=== PATIENT | female | born 1945 | race Hispanic/Latino ===

== ENCOUNTER 2016-10-20 10:23 | Inpatient (IN) | payer MEDICARE, OTHER ==
[2016-10-20 10:23] VITALS: PULSE 71
[2016-10-20 11:20] LABS: ADD MANUAL DIFF? NO
[2016-10-20 11:22] LABS: BASO # 0.01 K/mm3 (0.0-2.0); BASO % 0.2 % (0.0-3.0); EOS # 0.1 (0.0-0.7); EOS % 1.6 % (1.5-5.0); GRAN # 4.06 (1.4-6.5); GRAN % 79.9 % (50.0-68.0); HEMATOCRIT 33.6 % (36.0-48.0); LYMPH # 0.5 (1.2-3.4); LYMPH % 10.6 % (22.0-35.0); MEAN CELL VOLUME 95.2 fL (80.0-105.0); MEAN CORPUSCULAR HEMOGLOBIN 31.2 pg (25.0-35.0); MEAN CORPUSCULAR HGB CONC 32.7 g/dl (31.0-37.0); MEAN PLATELET VOLUME 10.2 fl (7.0-11.0); MONO # 0.4 (0.1-0.6); MONO % 7.7 % (1.0-6.0); PLATELET COUNT 146 10^3/uL (120.0-450.0); RED CELL DISTRIBUTION WIDTH 17.5 % (11.5-14.5); WHITE BLOOD COUNT 5.1 10^3/ul (4.5-11.0)
[2016-10-20 11:32] LABS: ALB/GLOB RATIO 0.9 (1.1-1.8); BILIRUBIN,TOTAL 1.6 mg/dL (0.2-1.3); CALCIUM 9.2 mg/dL (8.4-10.5); MAGNESIUM 2.3 mg/dL (1.7-2.2); PHOSPHOROUS 3.8 mg/dL (2.5-4.5); POTASSIUM 3.7 mmol/L (3.6-5.0)
--- NOTE | 2016-10-20 11:32 | ED PDOC ---
Arrival/HPI - General Chief Complaint: Lower Extremity Problem/Injury Time Seen by Provider: 10/20/16 10:23 Historian: Patient, Family - History of Present Illness Narrative History of Present Illness (Text): 10/20/16 11:51 A 70 year old female, whose past medical history includes CHF and Atrial fibrillation, presents to the emergency department complaining of weakness and body aches since this morning. Patient's pain is in lower back, abdominal, lower extremities and all throughout body. Patient denies any fevers, runny nose , sore throat, cough, chest pain, shortness of breath or any other complaints at this time. She does get shortness of breathe at times on exertion. Today they checked her oxygen level and it was in the 80's and she only uses the oxygen at night. Patient notes she has been eating normally and her last bowel movement was last night. Patient was accompanied to emergency department by son who translated. PMD: Dr. Luna Time/Duration: Other (this morning) Symptom Onset: Sudden Symptom Course: Unchanged Activities at Onset: Rest Modifying Factors (Text): none Context: Home Past Medical History - Provider Review Nursing Documentation Reviewed: Yes - Infectious Disease Hx of Infectious Diseases: None - Tetanus Immunization Tetanus Immunization: Unknown - Past Medical History Past Medical History: Non-Contributing - Cardiac Hx Cardiac Disorders: Yes (BL LE varicose vein) Hx Congestive Heart Failure: Yes Hx Hypertension: Yes - Pulmonary Hx Chronic Obstructive Pulmonary Disease (COPD): Yes - Neurological Hx Neurological Disorder: No - HEENT Hx HEENT Disorder: Yes Other/Comment: wears glasses - Renal Hx Renal Disorder: Yes Hx Renal Failure: No (dialysis in past) Other/Comment: no longer dialysis pt. - Endocrine/Metabolic Hx Endocrine Disorders: No Hx Diabetes Mellitus Type 2: (pt denies having diabetes) - Hematological/Oncological Hx Blood Disorders: No - Integumentary Hx Dermatological Disorder: Yes Other/Comment: ble dry leathery red and brown discolored skin . - Musculoskeletal/Rheumatological Hx Musculoskeletal Disorders: Yes Hx Back Pain: Yes Hx Gout: Yes Hx Unsteady Gait: Yes - Gastrointestinal Hx Gastrointestinal Disorders: Yes (umbilical hernia no sx) Hx Gastroesophageal Reflux: Yes - Genitourinary/Gynecological Hx Genitourinary Disorders: No - Psychiatric Hx Psychophysiologic Disorder: No Hx Substance Use: No - Past Surgical History Past Surgical History: Non-Contributing - Surgical History Hx Valve Replacement: Yes Other/Comment: picc line in and out. dialysis fistula placed and removed. - Anesthesia Hx Anesthesia: Yes Hx Anesthesia Reactions: No Hx Malignant Hyperthermia: No - Suicidal Assessment Feels Threatened In Home Enviroment: No Family/Social History - Physician Review Nursing Documentation Reviewed: Yes Family/Social History: No Known Family HX Smoking Status: Never Smoked Hx Alcohol Use: No Hx Substance Use: No Hx Substance Use Treatment: No Allergies/Home Meds Allergies/Adverse Reactions: Allergies No Known Allergies Allergy (Verified 10/20/16 10:31) Home Medications: Home Meds Medication Instructions Recorded Confirmed diltiaZEM ER [Cardizem SR] 120 mg PO DAILY 02/22/14 10/20/16 Carvedilol [Coreg] 3.125 mg PO BID 07/10/16 10/20/16 Famotidine [Pepcid] 20 mg PO DAILY 07/10/16 10/20/16 Ferrous Sulfate [Iron] 325 mg PO DAILY 07/10/16 10/20/16 Furosemide [Lasix] 40 mg PO BID 07/10/16 10/20/16 Methimazole 5 mg PO DAILY 07/10/16 10/20/16 Spironolactone [Aldactone] 25 mg PO DAILY 07/10/16 10/20/16 Acetaminophen [Tylenol Extra 500 mg PO PRN PRN 10/20/16 10/20/16 Strength] Apixaban [Eliquis] 5 mg PO BID 10/20/16 10/20/16 Review of Systems - Physician Review All systems were reviewed & negative as marked: Yes - Review of Systems Constitutional: Other (weakness; body ache) ENT: absent: Sore Throat Respiratory: absent: SOB, Cough Cardiovascular: absent: Chest Pain Gastrointestinal: Abdominal Pain Musculoskeletal: Back Pain Physical Exam Vital Signs Reviewed: Yes Vital Signs Temp Pulse Resp BP Pulse Ox 10/20/16 12:45 59 L 16 124/55 L 97 10/20/16 12:42 124/55 L 10/20/16 10:30 98.7 F 75 16 146/56 L 84 L Temperature: Afebrile Blood Pressure: Hypotensive Pulse: Regular Respiratory Rate: Normal Appearance: Positive for: Well-Appearing, Non-Toxic, Comfortable Pain Distress: None Mental Status: Positive for: Alert and Oriented X 3 - Systems Exam Head: Present: Atraumatic, Normocephalic Pupils: Present: PERRL Extroacular Muscles: Present: EOMI Conjunctiva: Present: Normal Mouth: Present: Moist Mucous Membranes Pharnyx: Present: Normal. No: ERYTHEMA, EXUDATE Neck: Present: Normal Range of Motion. No: JVD Respiratory/Chest: Present: Good Air Exchange, Rales (right lower). No: Respiratory Distress, Accessory Muscle Use, Tender to Palpation Cardiovascular: Present: Regular Rate and Rhythm, Normal S1, S2. No: Murmurs Abdomen: Present: Hernias (reducible ventral). No: Tenderness Back: Present: Normal Inspection Upper Extremity: Present: Tenderness (to back). No: Cyanosis, Edema Lower Extremity: Present: Edema Neurological: Present: GCS=15, CN II-XII Intact, Speech Normal Skin: Present: Warm, Dry, Normal Color. No: Rashes Psychiatric: Present: Alert, Oriented x 3, Normal Insight, Normal Concentration Medical Decision Making ED Course and Treatment: 10/20/16 11:30 Impression: A 70 year old female complaining of weakness and body aches. Differential Diagnosis included but are not limited to: Electrolyte imbalance vs. Infection vs. Rhabdomyolysis vs CHF Plan: -- EKG -- chest xray -- US abdomen -- labs -- Urinalysis -- Toradol -- Reassess and disposition Prior Visits: Notes and results from previous visits were reviewed. Patient last reported to emergency department on 07/10/16 for evaluation of intermittent shortness of breath and abdominal pain. Patient was admitted to telemetry for CHF, Atrial fibrillation. Patient was advised CPAP at night, continue pulmonary vasodilation, bronchodilator, continue medications and to follow up with cardiology and nephrology outpatient. Patient was discharged on Progress Notes: EKG: Ordered, reviewed, and independently interpreted the EKG. Rate : 67 BPM Rhythm : NSR Interpretation : PVC, T wave inversion, lateral leads Comparison : No previous EKG for comparison. chest xray: Creator : Michael Wright MD IMPRESSION: No acute findings US abdomen: 10/20/16 12:57 Patient's oxy sat is in the low 80's. She does get short of breathe sometimes on exertion. Lasix 40mg IV ordered. CXR with no acute findings. Labs shows newly re-elevated BUN/Cr. Troponin negative. WBC normal. Case was discussed with Dr. Luna who agrees to observation under her service. Her Pharmaceutical Assistant is Dr. Mantilla. 10/20/16 13:02 Bili and alk phos elevated. Abd soft. Ventral hernia soft and reducible. Some epigatric tenderness. Will get sono. Patient had a normal bowel movement yesterday. No n/v. No clinical concern for obstruction. Will consider gallbladder dz. 10/20/16 13:46 Abd sono prelim reviewed. No cholecysitis noted. - Lab Interpretations Lab Results: 10/20/16 11:10 10/20/16 11:10 Lab Results 10/20/16 13:00: NT-Pro-B Natriuret Pep 91583 H 10/20/16 11:10: Sodium 142, Potassium 3.7, Chloride 104, Carbon Dioxide 28, Anion Gap 14, BUN 89 H, Creatinine 1.5 H, Est GFR ( Amer) 41, Est GFR ( Non-Af Amer) 34, Random Glucose 149 H, Calcium 9.2, Phosphorus 3.8, Magnesium 2.3 H, Total Bilirubin 1.6 H, AST 27, ALT 29, Alkaline Phosphatase 155 H, Lactate Dehydrogenase 408, Total Creatine Kinase 22 L, Troponin I 0.07, Total Protein 7.0, Albumin 3.3, Globulin 3.8, Albumin/Globulin Ratio 0.9 L 10/20/16 11:10: WBC 5.1, RBC 3.53, Hgb 11.0 L, Hct 33.6 L, MCV 95.2, MCH 31.2, MCHC 32.7, RDW 17.5 H, Plt Count 146, MPV 10.2, Gran % 79.9 H, Lymph % (Auto) 10.6 L, Denali % (Auto) 7.7 H, Eos % (Auto) 1.6, Baso % (Auto) 0.2, Gran # 4.06, Lymph # 0.5 L, Denali # 0.4, Eos # 0.1, Baso # 0.01 I have reviewed the lab results: Yes Interpretation: Abnormal lab values - RAD Interpretation Radiology Orders: 10/20/16 10:59 CHEST PORTABLE [RAD] Stat 10/20/16 12:29 ABDOMEN COMPLETE [US] Stat Cone Tender: ED Physician - EKG Interpretation Interpreted by ED Physician: Yes Type: 12 lead EKG - Medication Orders Current Medication Orders: Discontinued Medications Furosemide (Lasix) 40 mg IVP STAT STA Stop: 10/20/16 12:30 Last Admin: 10/20/16 12:42 Dose: 40 mg Ketorolac Tromethamine (Toradol) 15 mg IVP STAT STA Stop: 10/20/16 11:01 Last Admin: 10/20/16 11:16 Dose: 15 mg - Scribe Statement The provider has reviewed the documentation as recorded by the Antonino David All medical record entries made by the Antonino were at my direction and personally dictated by me. I have reviewed the chart and agree that the record accurately reflects my personal performance of the history, physical exam, medical decision making, and the department course for this patient. I have also personally directed, reviewed, and agree with the discharge instructions and disposition. Disposition/Present on Arrival - Present on Arrival Any Indicators Present on Arrival: No History of DVT/PE: No History of Uncontrolled Diabetes: No Urinary Catheter: No History of Decub. Ulcer: No History Surgical Site Infection Following: None - Disposition Have Diagnosis and Disposition been Completed?: Yes Diagnosis: Congestive heart failure (CHF), Weakness, Body aches Disposition: HOSPITALIZED Disposition Time: 13:01 Patient Plan: Observation Patient Problems: Current Active Problems Problem Status Onset Congestive heart failure (CHF) Acute Weakness Acute Body aches Acute Condition: FAIR
[2016-10-20 11:43] LABS: TROPONIN I 0.07 ng/mL
--- NOTE | 2016-10-20 12:09 | RAD ---
HISTORY: weakness COMPARISON: 07/10/2016 FINDINGS: LUNGS: No active pulmonary disease. PLEURA: Small right pleural effusion CARDIOVASCULAR: Severe cardiomegaly OSSEOUS STRUCTURES: No significant abnormalities. VISUALIZED UPPER ABDOMEN: Normal. OTHER FINDINGS: None. IMPRESSION: No acute findings
--- NOTE | 2016-10-20 13:11 | CARD ---
APPROVED REPORT EKG Measurement Heart [id number] <Conclusion> Sinus rhythm with one premature ventricular complex ST & T wave abnormality, consider lateral ischemia
--- NOTE | 2016-10-20 15:26 | US ---
HISTORY: abd pain r/o cholecystitis COMPARISON: Comparison is made to the previous study dated 07/11/2016 TECHNIQUE: Sonographic evaluation of the abdomen. FINDINGS: LIVER: Measures 21.2 cm. Heterogeneous increased echogenicity of the liver parenchyma. No mass. No intrahepatic bile duct dilatation. GALLBLADDER: Mild gallbladder wall thickening measures up to 4.6 millimeter. No evidence of cholelithiasis. COMMON BILE DUCT: Measures 7.6 mm. No stones. No dilatation. PANCREAS: Unremarkable as visualized. No mass. The pancreatic tail was not visualized No ductal dilatation. RIGHT KIDNEY: Measures 12.9 x 5.5 x 4.9cm. Normal echogenicity. No calculus, mass, or hydronephrosis. LEFT KIDNEY: Measures 11.6 x 4.1 x 3.9cm. Normal echogenicity. No calculus, mass, or hydronephrosis. SPLEEN: Normal in size and contour. No mass. AORTA: No aneurysmal dilatation. IVC: Unremarkable. OTHER FINDINGS: None. IMPRESSION: Hepatomegaly with findings again suggestive of fatty infiltration. Re- demonstration of nonspecific diffuse gallbladder wall thickening without evidence of cholelithiasis or cholecystitis.
[2016-10-20] MEDS: diltiaZEM 120 mg/24 Hours CD Cap PO SCH (15:58)
[2016-10-20 17:53] VITALS: BMI 30.6
--- NOTE | 2016-10-20 21:49 | HP ---
CHIEF COMPLAINT: Feeling fatigue and tired, pain in the legs, shortness of breath. HISTORY OF PRESENT ILLNESS: The patient is a 70-year-old lady with past medical history of congestive heart failure, atrial fibrillation, came to the Emergency Room complaining about weakness and body aches since this morning, shortness of breath and pain in the legs. The patient's pain is in the lower back, abdominal pain, lower extremities and all through the body. The patient denies any fever or runny nose, sore throat, coughing, chest pain. She does get shortness of breath at times, especially on exertion. She checked her oxygen level at home. It was in the 80s, and she uses the oxygen just at night. No nausea, vomiting, or diarrhea. The patient came in the Emergency Room with the son. I saw her in the telemetry. PAST MEDICAL HISTORY: Varicose veins in both extremities, congestive heart failure, hypertension, COPD, pulmonary hypertension, renal insufficiency, but not getting dialysis, ataxia, valve replacement. FAMILY HISTORY: Father and mother noncontributory. HABITS: Never smoked, no drugs, no ethanol. ALLERGIES: The patient is not allergic to any medications. HOME MEDICATIONS: Cardizem, Coreg, Pepcid, iron, Lasix, methimazole, Aldactone , Tylenol, Eliquis. REVIEW OF SYSTEMS: The patient was seen and examined on the bedside in telemetry, having her dinner. Still complaining about shortness of breath and body aches, especially low back pain and extremity pain. No abdominal pain, no sore throat, no headache, no dizziness. No hematuria or hematochezia. PHYSICAL EXAMINATION: VITAL SIGNS: Temperature 98.7, pulse 75, respiratory rate 15, blood pressure 140/56, pulse oximetry 84. HEENT: Head normocephalic, atraumatic. Eyes: PERRLA. Extraocular muscles intact. Conjunctivae clear. Nose patent. Mucous membranes moist. NECK: Supple. No carotid bruit. No JVD or thyromegaly. CHEST: Bilaterally symmetrical. HEART: S1, S2 positive. LUNGS: Clear to auscultation. ABDOMEN: Soft. Bowel sounds present. No organomegaly. EXTREMITIES: Trace edema, discoloration and varicose veins. NEUROLOGIC: The patient is awake, alert, moving all 4 extremities. No focal deficits. LABORATORY DATA: White blood cells 5.1, hemoglobin 11.0, hematocrit 33.6, platelets 146. Sodium 142, potassium 3.7, BUN 89, creatinine 1.5, glucose 149. ASSESSMENT AND PLAN: The is a 70-year-old lady with anemia, renal insufficiency , hyperglycemia, came in the Emergency Room with fatigue, tired, swelling of the legs, started on Lasix, Toradol given for pain by ER. Pulmonary and cardiology consult called. nurse called me that during sleep, she got episode of bradycardia, heart rate 110 , just for a few movements and came back, history of congestive heart failure, fatigue, tired, history of pulmonary hypertension, chronic obstructive pulmonary disease, obstructive sleep apnea syndrome, obesity, history of stasis dermatitis of the legs, varicose veins. We will continue present treatment. Gastrointestinal and deep venous thrombosis prophylaxis. Repeat labs. We will follow up. Sariah Luna MD cc: [id number] TT: 10/20/2016 21:49:00 shilpa HESTER
--- NOTE | 2016-10-21 04:26 | CON ---
DATE: 10/20/2016 REFERRING PHYSICIAN: Sariah Luna MD REASON FOR CONSULT: Chronic obstructive lung disease, pulmonary hypertension, obstructive sleep apne a syndrome. HISTORY OF PRESENT ILLNESS: This is a 70-year-old female known not very compliant with the followup and her CPAP use, known to have cardiomyopathy, atrial fibrillation, hypertension, chronic lung disea se, obstructive sleep apnea syndrome, pulmonary hypertension, renal insufficiency, history of cardiac valve replacement, comes into Emergency Room with bilateral leg pain and swelling, shortness of renata th, cough, found to have respiratory failure with pO2 was in low 80s. PAST MEDICAL HISTORY: As per history of present illness. FAMILY HISTORY: Has positive diabetes, hypertension. SOCIAL HISTORY: No history of smoking or alcohol use. ALLERGIES: None known. MEDICATIONS: She is on Aldactone 25 mg daily, Cardizem 120 mg daily, Coreg 3.125 mg twice a day, Maritza clarence 5 mg twice a day, ferrous sulfate 324 mg daily, Lasix 40 mg twice a day, Pepcid 20 mg daily, Sin gulair 10 mg daily, Tapazole 5 mg orally daily, Tylenol p.r.n. basis, Zofran p.r.n. basis. REVIEW OF SYSTEMS: No headache, no rhinitis. Has a cough, shortness of breath. No chest pain, no n ausea, no vomiting, no diarrhea. Does have leg swelling. Complained of weakness of lower extremitie s. PHYSICAL EXAMINATION: GENERAL: Lying in the bed in no acute distress. VITAL SIGNS: Temp is 98, heart rate is 61, respiratory rate is 20, blood pressure 126/64, pulse ox 9 7% on nasal cannula. HEENT: Moist mucous membranes. Small oral cavity. Crowded airway. NECK: Supple. No JVD. LUNGS: Have basilar crackles. HEART: S1 and S2 . ABDOMEN: Soft, nontender. No organomegaly. EXTREMITIES: Does have edema. NEUROLOGIC: Awake, alert, follows simple commands. LABORATORY DATA: Shows hemoglobin 11.0, hematocrit 33.6, WBC 5.1, platelet is 146. Sodium 142, pota ssium 3.7, chloride 104, bicarbonate 28, BUN 18 and creatinine 1.5, glucose 149, calcium 9.2, phospho araceli 3.8, magnesium 2.6, total bili 1.6, AST 27, ALT 29, alk phos is 155. LDH 408. Total creatine ki nase is 22; troponin 0.7; ProBNP 14,900. Albumin is 3.3. ABDOMINAL ULTRASOUND: Done today which shows hepatomegaly with the finding suggestive of fatty infil trate, gallbladder wall thickening without evidence of cholelithiasis without cholecystitis. CHEST X-RAY: Done in the ER shows no infiltrate or effusion. There is severe cardiomegaly. IMPRESSION AND PLAN: Cardiomyopathy with heart failure, pulmonary hypertension, obstructive sleep ap moses syndrome, chronic lung disease, renal failure, anemia and diabetes. The patient refusing to use CPAP in the hospital. her son will bring her CPAP from home tomorrow. 5 mg p.o. daily. We will have patient's family bring her own medications from home. We will see if will order it. Continue diuretics, inhaled bronchodilators, supplemental oxygen. Follow up labs in the morning . We will follow with you. Saira Gallardo MD cc: [id number] TT: 10/21/2016 04:26:11 Confirmation # [id number] Dictation # [id number] dn
[2016-10-21 07:21] LABS: HEMATOCRIT 34.8 % (36.0-48.0); MEAN CELL VOLUME 97.5 fL (80.0-105.0); MEAN CORPUSCULAR HGB CONC 30.7 g/dl (31.0-37.0); MEAN PLATELET VOLUME 9.5 fl (7.0-11.0); RED CELL DISTRIBUTION WIDTH 17.5 % (11.5-14.5); WHITE BLOOD COUNT 3.3 10^3/ul (4.5-11.0)
[2016-10-21 07:29] LABS: ALB/GLOB RATIO 0.8 (1.1-1.8); BILIRUBIN,TOTAL 1.3 mg/dL (0.2-1.3); CALCIUM 9.1 mg/dL (8.4-10.5); POTASSIUM 3.9 mmol/L (3.6-5.0); TOTAL PROTEIN 6.8 g/dL (5.8-8.3)
[2016-10-21] MEDS: diltiaZEM 120 mg/24 Hours CD Cap PO SCH (10:45)
[2016-10-21] MEDS: methIMAzole 5 MG TAB PO SCH (10:46)
[2016-10-21] MEDS: Milrinone 20mg/100ml D5W 100 ML IV PRN (10:53)
--- NOTE | 2016-10-21 11:13 | CON ---
DATE: 10/21/2016 REASON FOR CONSULTATION: Cardiac evaluation, admitted with shortness of breath, leg swelling and fat igue. BRIEF CLINICAL HISTORY: This is a 70-year-old female with a past medical history significant for con gestive heart failure, hypertension, hyperlipidemia, COPD, proximal fibrillation (chronic atrial fibr illation), renal insufficiency, who came in with complaint of tiredness, generalized weakness, increa sed leg swelling, increased abdominal girth and shortness of breath. Denies any chest pain, denies a ny palpitation. PAST MEDICAL HISTORY: Significant for history of chronic renal insufficiency, status post dialysis o n the last admission, then patient had the Shiley removed; history of decompensated congestive heart failure multiple times, history of cardiomyopathy, history of mitral regurgitation, history of MVR. PAST SURGICAL HISTORY: Significant for MVR many years ago. PREVIOUS CARDIAC WORKUP: The patient had a stress test on 05/30/2014: Ejection fraction 22% ____ re versible ischemia. The patient had most recent echo 11/02/2014 shows ejection fraction 35-40%, statu s post MVR. History of kidney injury; history of atrial fibrillation, was on Eliquis last time. The patient had repeat echocardiography done on ___ that shows dilated IVC, 4-chamber dilation, ejection fraction 25-30%, on 2.5 mcg Dobutrex at the time, moderate aortic regurgitation, mild valvu lar aortic stenosis, ____, status post MVR repair, trace MR, status post repair with moderate to matt re tricuspid regurgitation, RV systolic pressure of 64, left pleural effusion, no pericardial effusio n, dated ___, RV systolic pressure of 64. The patient had a MUGA scan done on 07/16/2016 th at shows ejection fraction 18%. REVIEW OF SYSTEMS: As per HPI. CURRENT MEDICATIONS: The patient at home was taking Cardizem 120 mg, spironolactone, Tapazole, methi mazole, Lasix, carvedilol, apixaban, Coreg, acetaminophen. ALLERGIES: No known drug allergies. REVIEW OF SYSTEMS: As per HPI. PHYSICAL EXAMINATION: VITAL SIGNS: Temperature afebrile, heart rate 52, blood pressure 108/52. HEENT: PERRLA. Extraocular muscles intact. NECK: Supple. No carotid bruits. No thyromegaly. CHEST: Clear to auscultation. HEART: S1, S2 regular. ABDOMEN: Soft. EXTREMITIES: Clubbing and cyanosis negative. BLOOD WORKUP: WBC 3.3, hemoglobin 10.____, hematocrit 34.8, platelet count 128. Chemistry shows sod ium 145, potassium 3.9, chloride 105, carbon dioxide 30, anion gap of 14, BUN 89, creatinine 1.6. BN P 14,900. IMPRESSION: Decompensated congestive heart failure, severely decreased left ventricular function, ej ection fraction 18% by MUGA scan dated 07/16/2016, status post mitral valve replacement, trace mitral regurgitation, 4-chamber dilatation, pulmonary hypertension, right ventricular systolic pressure of 64, severe tricuspid regurgitation, status post tricuspid repair. RECOMMENDATION: Will start IV Lasix. Will start Primacor to prevent further renal deterioration fun ction and to treat pulmonary hypertension and get diuresis. Last time arrangement had been made for home infusion of Primacor, but insurance did not improve. The patient was discharged on Cardizem, di uretics and Eliquis for atrial fibrillation. Also, arrangement was made to see Dr. Hernadnez for AICD placement, but since it is a drop in ejection fraction less than 6 months for nonischemic cardiomyop athy, so needs to be reevaluated in 3 months before AICD is placed for the insurance approval guide ne. So for now, will treat with aggressive medical treatment and reassess LV function in 3 months fo r AICD implantation. In the interim, continue to treat medically with Cardizem, spironolactone, Core g, apixaban for AFib, IV Lasix. Will put low dose of Primacor for 48 hours. Will follow with you. Thank you, Dr. Luna, for providing the opportunity in taking care of this patient. Saira Chicas MD cc: [id number] TT: 10/21/2016 10:41:24 Confirmation # [id number] Dictation # [id number] mn 10/21/2016 10:11:55
--- NOTE | 2016-10-21 14:44 | PN ---
DATE: 10/21/2016 REFERRING PHYSICIAN: Dr. Luna. SUBJECTIVE: She is lying in the bed, head at 45 degrees, feels a little better, still has cough and shortness of breath. No nausea, no vomiting, no diarrhea. Still has leg swelling. OBJECTIVE: GENERAL: No acute distress. VITAL SIGNS: Temperature is 98, heart rate is 68, respiratory rate is 18, blood pressure 158/72, pul se ox 96% on nasal cannula. HEENT: Moist mucous membrane. Crowded airway. NECK: Supple, no JVD. LUNGS: Have a few crackles at the bases. HEART: S1 and S2. ABDOMEN: Soft, nontender. No organomegaly. EXTREMITIES: Does have edema. NEUROLOGIC: Awake, alert, follows simple commands. MEDICATIONS: She is on Aldactone 25 mg daily, Cardizem-CD 120 mg daily, Coreg 3.125 mg twice a day, Eliquis 5 mg twice a day, ferrous sulfate 324 mg daily, Lasix 40 mg twice a day, Pepcid 20 mg daily, Primacor drip, Singulair 10 mg daily, Tapazole 5 mg daily, Tylenol p.r.n. basis, Zofran p.r.n. basis. LABORATORY DATA: Shows hemoglobin 10.7, hematocrit 34.8, WBC 3.3, platelet is 128. Sodium 125, pota ssium 3.9, chloride 105, bicarbonate 30, BUN 89, creatinine 1.6, glucose is 101, calcium 9.1, AST 38, ALT 24, alk phos is 148. Her proBNP yesterday was 14,900. Albumin is 3.1. IMPRESSION AND PLAN: Cardiomyopathy with heart failure, pulmonary hypertension, obstructive sleep ap moses syndrome, chronic obstructive lung disease, renal failure, anemia, diabetes. According to patient , her own CPAP machine is broken at home and was not using for awhile. Also this month she does not have her Lateris which is 5 mg daily. Agree with cardiology with Primacor use. Continue diuretics. We will place her on CPAP 6 cm with 35% oxygen while sleeping. Will need ferritin studies. Outpat ient needs split sleep study with half apnea, half CPAP to qualify for the new machine and also evalu ate CPAP pressure. Will follow with you. Saira Gallardo MD cc: [id number] TT: 10/21/2016 14:43:33 Confirmation # [id number] Dictation # [id number] rn
--- NOTE | 2016-10-21 20:27 | PN ---
DATE: 10/21/2016 SUBJECTIVE: The patient was seen and examined on the bedside, looks comfortable, lying down on the b ed. Feels a little bit better in shortness of breath. Still coughing. Still has swelling of the le g. No nausea, vomiting, or diarrhea. No hematuria or hematochezia. No headache, no dizziness, no f ever, no chills. PHYSICAL EXAMINATION: VITAL SIGNS: Temperature 98, heart rate is 68, respiratory rate 18, blood pressure 158/72, pulse oxi metry 96% on nasal cannula. HEAD: Normocephalic, atraumatic. EYES: PERRLA. Extraocular muscles are intact. Conjunctivae clear. Nose patent. Mucous membranes mo ist. NECK: Supple. No carotid bruit. No JVD or thyromegaly. CHEST: Bilaterally symmetrical. HEART: S1, S2 positive. LUNGS: Clear to auscultation. ABDOMEN: Soft. Bowel sounds present. No organomegaly. EXTREMITIES: Positive edema +2 bilaterally. NEUROLOGIC: The patient is awake, alert, follows simple commands, moving all 4 extremities. MEDICATIONS: Aldactone, Cardizem, Coreg, Eliquis, ferrous sulfate, Lasix, Pepcid, Primacor drip, Sin gulair, Tapazole, Tylenol, Zofran. LABORATORY DATA: Hemoglobin 10.7, hematocrit 34.8, white blood cell 3.3, platelets 128. Sodium 125, potassium 3.9, BUN 89, creatinine 1.6. AST 38, ALT 24. ASSESSMENT AND PLAN: The patient is a 70-year-old lady with severe cardiomyopathy with congestive he art failure, pulmonary hypertension, diabetes mellitus, obstructive sleep apnea syndrome, history of chronic cellulitis of the legs, stasis dermatitis, chronic obstructive lung disease, renal failure, a nemia, noninsulin requiring diabetes mellitus type 2, not controlled. The patient has own CPAP machi ne and it is broken at home as per the patient, not using for a while. The patient is noncompliant w ith medication. The patient is getting Primacor use. Continue diuretics, CPAP. Gastrointestinal and deep vein thrombosis prophylaxis. Repeat labs. We will follow up. Sariah Luna MD cc: [id number] TT: 10/21/2016 20:26:22 Confirmation # [id number] Dictation # [id number] rn
[2016-10-22 06:38] LABS: ADD MANUAL DIFF? NO
[2016-10-22 06:55] LABS: ALB/GLOB RATIO 0.9 (1.1-1.8); BILIRUBIN,TOTAL 1.2 mg/dL (0.2-1.3); CALCIUM 9.1 mg/dL (8.4-10.5); MAGNESIUM 2.2 mg/dL (1.7-2.2); PHOSPHOROUS 3.7 mg/dL (2.5-4.5); TOTAL PROTEIN 6.8 g/dL (5.8-8.3)
[2016-10-22 07:04] LABS: BASO # 0.02 K/mm3 (0.0-2.0); BASO % 0.4 % (0.0-3.0); EOS # 0.2 (0.0-0.7); EOS % 3.1 % (1.5-5.0); GRAN # 3.57 (1.4-6.5); GRAN % 74.6 % (50.0-68.0); HEMATOCRIT 33.6 % (36.0-48.0); LYMPH # 0.7 (1.2-3.4); LYMPH % 14.2 % (22.0-35.0); MEAN CELL VOLUME 96.3 fL (80.0-105.0); MEAN CORPUSCULAR HEMOGLOBIN 30.1 pg (25.0-35.0); MEAN CORPUSCULAR HGB CONC 31.3 g/dl (31.0-37.0); MEAN PLATELET VOLUME 9.7 fl (7.0-11.0); MONO # 0.4 (0.1-0.6); MONO % 7.7 % (1.0-6.0); PLATELET COUNT 158 10^3/uL (120.0-450.0); RED CELL DISTRIBUTION WIDTH 17.1 % (11.5-14.5); WHITE BLOOD COUNT 4.8 10^3/ul (4.5-11.0)
--- NOTE | 2016-10-22 09:32 | PN ---
DATE: 10/22/2016 REASON FOR CONSULTATION AND FOLLOWUP: Cardiac evaluation with shortness of breath, leg swelling, fat igue, possible acute decompensated congestive heart failure, acute on chronic, secondary to systolic dysfunction. COMPUTER SYSTEM IS DOWN, SO DICTATING FROM THE TOP OF THE HEAD. BRIEF CLINICAL HISTORY: This is a 70-year-old female with past medical history significant for conge stive heart failure, hypertension, hyperlipidemia, COPD, paroxysmal atrial fibrillation, chronic mily l insufficiency, history of mitral valve repair, status post open heart surgery recently, significan tly decreased ventricular function, cardiomyopathy. Most recently MUGA scan shows ejection fraction 18%. The patient was started on Primacor but patient did not qualify for home Primacor because of [facility] insurance so discharged on diuretics, ROBBIN inhibitors and Coreg. Now admitted with decompensated co ngestive heart failure with feeling weak, leg swelling and shortness of breath. The patient started IV diuretics - p.o. diuretics were changed to IV - and IV Primacor started. Feels better lying flat. PHYSICAL EXAMINATION: VITAL SIGNS: Temperature afebrile, heart rate 65, blood pressure 150/80. HEENT: PERRLA. Extraocular muscles intact. NECK: Supple. No carotid bruits. No thyromegaly. CHEST: Clear to auscultation. HEART: S1, S2 regular. ABDOMEN: Soft. EXTREMITIES: Clubbing and cyanosis negative. BLOOD WORKUP: Computer system is down, pending. IMPRESSION: Acute decompensated congestive heart failure, acute on chronic, secondary to systolic dy sfunction; atrial fibrillation, cardiomyopathy, chronic obstructive pulmonary disease, status post mi tral valve repair. RECOMMENDATION: Continue IV Primacor. Continue Lasix. Continue anticoagulation. Follow up the lab when the system is available. As of now, computer system is down. Will follow with you. Thank you, Dr. Luna, for providing the opportunity in taking care of the patient. Saira Chicas MD cc: [id number] TT: 10/22/2016 09:32:33 Confirmation # [id number] Dictation # [id number] mn
[2016-10-22] MEDS: diltiaZEM 120 mg/24 Hours CD Cap PO SCH (09:38)
[2016-10-22] MEDS: methIMAzole 5 MG TAB PO SCH (09:39)
--- NOTE | 2016-10-22 10:29 | PQF RENAL ---
This form is a permanent part of the medical record Dr. Luna, Patient admitted with elevated BUN and creatinine and H&P noting renal insufficiency. Also noted in one of the consults that patient required dialysis last admission although catheter removed. Could you provide more specificity about the stage of the CKD since the term, "renal insufficiency" does not provide acuity of condition. Clarification of your documentation is requested to better reflect the severity of illness and intensity of treatment of your patient. Indicators present [] Oliguria/anuria [x] Edema/weight gain [] Hyponatremia [] Confusion/mental status changes [x] Increased Blood Urea Nitrogen/Creatinine [] Increased Potassium/Decreased potassium [x] Anemia (male <13.5, female <12.0) [] Proteinuria [] Metabolic Acidosis OR Alkalosis [] Hypotension/shock [] Decreased GFR [] Other: [] Location in the medical record that reflects the above clinical findings: pn PHYSICIAN'S RESPONSE Based on your medical judgment of the clinical indicators outlined above, are you treating this patient for a known or suspected: [] Acute Renal Failure [] Acute Kidney Injury [] Azotemia/prerenal azotemia [x] Chronic kidney disease Stage I [] Stage II [] Stage III [] Stage IV [] [] Other condition/diagnosis:[] [] If Unable to Determine, please check the box, sign and date. Present On Admission (POA) Indicator: [x] Present at the time of admission [] Not present at the time of admission [] Clinically Undetermined In responding to this query, please exercise your independent professional judgment. The fact that a question is asked does not imply that any particular answer is desired or expected. Thank you for your clarification on this documentation. If you have any questions please call:[ ] * Thank you, [ ]Kody Esposito [facility] #[id number] slasher hand Chronic Kidney Disease Stages *[employer]* Stage I GFR >90 Stage II GFR 60-89 Stage III GFR 30-59 Stage IV GFR 15-29 Stage V~~~~~~~~~~ GFR <15~~~~~~~~~~~~~ MTDD
--- NOTE | 2016-10-22 18:01 | PN ---
DATE: 10/22/2016 REFERRING PHYSICIAN: Dr. Luna. SUBJECTIVE: She is out of bed to chair, feels better, decreased cough, decreased shortness of breath . No nausea, vomiting, diarrhea, has leg swelling. OBJECTIVE: GENERAL: No acute distress. VITAL SIGNS: Temperature 98, heart rate is 60, respiratory rate is 20, blood pressure 140/72, pulse ox 96% on nasal cannula. HEENT: Moist mucous membranes. Small oral cavity. NECK: Supple. No JVD. LUNGS: Has crackles up to 2/3. HEART: S1, S2. ABDOMEN: Soft, nontender. No organomegaly. EXTREMITIES: There is no edema. NEUROLOGIC: Awake, alert, follows simple commands. MEDICATIONS: She is on Aldactone 25 mg daily, Cardizem-CD 120 mg daily, Coreg 3.125 mg twice a day, Eliquis 5 mg twice a day, ferrous sulfate 324 mg daily, Lasix 40 mg twice a day, topical cream with n ystatin triamcinolone twice a day, Pepcid 20 mg daily. She is on Primacor IV drip, Singulair 10 mg d aily, Toprol-XL 5 mg daily, Tylenol p.r.n., Zofran on a p.r.n. basis. LABORATORY DATA: Shows hemoglobin 10.5, hematocrit 33.6, WBC 4.8, platelet count is 158. Sodium 143 , potassium 4.0, chloride 103, bicarbonate 31, BUN of 88, creatinine 1.4. Hemoglobin A1c 6.3, calciu m is 9.1, phosphorus 3.7, magnesium 2.2, ferritin is 213, AST 58, ALT 33, alkaline phosphatase is 157 , albumin is 3.2. TSH of 4.94. IMPRESSION AND PLAN: Cardiomyopathy with heart failure, pulmonary hypertension, obstructive sleep ap moses syndrome, chronic obstructive lung disease, renal failure, anemia, diabetes. I spoke to the tori ent and encouraged her to use CPAP, p.o. and inhaled bronchodilator, diuretics. We will get physical therapy. Will start Letairis once available. Thank you and will follow with you. Saira Gallardo MD cc: [id number] TT: 10/22/2016 18:00:50 Confirmation # [id number] Dictation # [id number] jn
[2016-10-22] MEDS: Nystatin-Triamcinolone Cream(30 gm) TOP SCH (18:08)
[2016-10-22 22:12] LABS: PH,URINE 5.5 (4.7-8.0); URINE BILIRUBIN NEGATIVE (NEGATIVE); URINE BLOOD SMALL (NEGATIVE); URINE GLUCOSE (UA) NEGATIVE (NEGATIVE); URINE KETONE NEGATIVE (NEGATIVE); URINE LEUKOCYTE ESTERASE SMALL Leu/uL (NEGATIVE); URINE PROTEIN NEGATIVE mg/dL (<30 mg/dL); URINE UROBILINOGEN 0.2 E.U./dL (<1 E.U./dL)
[2016-10-22 22:26] LABS: URINE APPEARANCE CLEAR (CLEAR); URINE BACTERIA FEW (NEG); URINE COLOR STRAW (YELLOW); URINE RBC 0 - 2 /hpf (0-2)
[2016-10-23] MEDS: Milrinone 20mg/100ml D5W 100 ML IV PRN (03:33)
[2016-10-23 06:20] LABS: ADD MANUAL DIFF? NO
[2016-10-23 06:32] LABS: CALCIUM 9.1 mg/dL (8.4-10.5); POTASSIUM 4.4 mmol/L (3.6-5.0)
[2016-10-23 06:34] LABS: GRAN # 4.41 (1.4-6.5); GRAN % 91.7 % (50.0-68.0); HEMATOCRIT 35.6 % (36.0-48.0); LYMPH # 0.3 (1.2-3.4); LYMPH % 7.1 % (22.0-35.0); MEAN CELL VOLUME 95.7 fL (80.0-105.0); MEAN CORPUSCULAR HEMOGLOBIN 30.1 pg (25.0-35.0); MEAN CORPUSCULAR HGB CONC 31.5 g/dl (31.0-37.0); MONO # 0.1 (0.1-0.6); MONO % 1.2 % (1.0-6.0); PLATELET COUNT 168 10^3/uL (120.0-450.0); RED CELL DISTRIBUTION WIDTH 16.7 % (11.5-14.5); WHITE BLOOD COUNT 4.8 10^3/ul (4.5-11.0)
--- NOTE | 2016-10-23 06:54 | PN ---
DATE: 10/22/2016 SUBJECTIVE: The patient is seen and examined at the bedside. Looks comfortable. No nausea, vomiting, or diarrhea. No hematuria or hematochezia. No chest pain. Coughing is better. Shortness of breath is better. Still has swelling of the leg. PHYSICAL EXAMINATION: VITAL SIGNS: Temperature 98, heart rate 60, respiratory rate 20, blood pressure 140/72, pulse ox 98% on nasal cannula. HEENT: Head normocephalic, atraumatic. Eyes: PERRLA. Extraocular muscles intact. Conjunctivae are clear. Nose patent. Mucous membranes moist. NECK: Supple. No carotid bruit, JVD or thyromegaly. CHEST: Bilaterally symmetrical. HEART: S1, S2 positive. LUNGS: Have crackles up to 2/3. ABDOMEN: Soft. No organomegaly. EXTREMITIES: Trace edema. NEUROLOGIC: The patient is awake, alert, follows simple commands. Cranial nerves II-XII grossly intact. MEDICATIONS: Aldactone, Cardizem, Coreg, Eliquis, ferrous sulfate, Lasix, topical cream, Pepcid, Primacor drip, Toprol, Tylenol and Zofran. LABORATORY DATA: Hemoglobin 10.5, hematocrit 33.6, white blood cells 4.8, and platelets 158. Sodium 143, potassium 4.0, BUN 88, creatinine 1.4. Hemoglobin A1c 6.3. AST 58, ALT 33. TSH 4.96. ASSESSMENT AND PLAN: The patient is a 70-year-old female with multiple medical problems, pulmonary hypertension, cardiomyopathy with heart failure, obstructive sleep apnea syndrome, chronic obstructive lung disease, renal failure, anemia, hypothyroidism, uncontrolled diabetes mellitus, coronary artery disease. Need CPAP. talked to the patient about using CPAP. Inhaled bronchodilators. Getting physical therapy. I reviewed Dr. Gallardo's note. I reviewed Dr. Chicas's notes also. Had acute decompensated congestive heart failure, acute on chronic secondary to systolic dysfunction, atrial fibrillation , status post mitral valve repair. Continue IV Primacor, continue Lasix, anticoagulation. Gastrointestinal and deep venous thrombosis prophylaxis and physical therapy. We will follow up. Sariah Luna MD cc: [id number] TT: 10/23/2016 06:53:17 Confirmation # [id number] Dictation # [id number] nn MTDD
[2016-10-23] MEDS: Nystatin-Triamcinolone Cream(30 gm) TOP SCH ×2 (10:03→20:04)
[2016-10-23] MEDS: methIMAzole 5 MG TAB PO SCH (10:05)
[2016-10-23] MEDS: diltiaZEM 120 mg/24 Hours CD Cap PO SCH (10:05)
--- NOTE | 2016-10-23 10:26 | PN ---
DATE: 10/23/2016 REASON FOR CONSULTATION AND FOLLOWUP: Cardiac evaluation, admitted with acute decompensated congesti ve heart failure, acute on chronic, secondary to systolic dysfunction. BRIEF CLINICAL HISTORY: This is a 70-year-old female with a past medical history significant for con gestive heart failure, hypertension, hyperlipidemia, COPD, paroxysmal atrial fibrillation, chronic r enal insufficiency, history of mitral valve repair, status post open heart surgery. Admitted with ac john decompensated congestive heart failure. The patient started on Primacor and diuretics, improving . Lying flat on the bed. Last 2 days, the patient had almost 3.5 liter negative fluid balance and d iuresed. PHYSICAL EXAMINATION: VITAL SIGNS: Temperature afebrile, heart rate 70, blood pressure 142/68. HEENT: PERRLA. Extraocular muscles intact. NECK: Supple. No carotid bruits. No thyromegaly. CHEST: Clear to auscultation. HEART: S1, S2 regular. ABDOMEN: Soft. EXTREMITIES: Clubbing, cyanosis negative. BLOOD WORKUP: WBC 4.8, hemoglobin 11. , hematocrit 35.6, platelet count 168. Chemistry shows so dium , potassium 4. , chloride 100, carbon dioxide 35, anion gap of 12, BUN 75, creatinine 1 .3. IMPRESSION: Acute decompensated congestive heart failure, acute on chronic, secondary to systolic dy sfunction, paroxysmal atrial fibrillation, mitral valve repair, cardiomyopathy, nonischemic, most rec ent echo 06/27/2016 shows 4-chamber dilatation, ejection fraction 25%-30%, status post mitral valve re pair, moderate to severe tricuspid regurgitation, right ventricular systolic pressure 64. The patien t had a MUGA scan that shows ejection fraction 18%. The patient was referred for automatic implantab le cardioverter-defibrillator, but did not qualify because of needs to reassess left ventricula r function in 3 months. RECOMMENDATION: Continue Primacor for next 24 hours. We will change Lasix from tomorrow to p.o. We will discontinue Primacor tomorrow. Interim, continue Cardizem 120, continue Coreg and continue met himazole for hyperthyroidism. We will follow with you. The patient is now in normal sinus. History of paroxysmal atrial fibrillation. Continue Eliquis 5 mg b.i.d. We will follow with you. Thank you, Dr. Luna, for providing us the opportunity in taking care of the patient. Repeat the bl ood workup in the morning. Saira Chicas MD cc: [id number] TT: 10/23/2016 10:25:13 Confirmation # [id number] Dictation # [id number] en
--- NOTE | 2016-10-23 11:39 | PN ---
DATE: 10/23/2016 REFERRING PHYSICIAN: Dr. Luna. SUBJECTIVE: The patient is out of bed to chair. Feels a little better. Did not use CPAP. No cough , no sputum production. Gets short of breath with minimal exertion. No nausea, no vomiting or diarr hea. Has leg swelling. OBJECTIVE: GENERAL: No acute distress. VITAL SIGNS: Temperature is 98, heart rate is 70, respiratory rate is 20, blood pressure 123/62, pul se ox 95% on nasal cannula. HEENT: Moist mucous membrane. Crowded airway. NECK: Supple. No JVD. LUNGS: Have basilar crackles. HEART: S1, S2. ABDOMEN: Soft, nontender. No organomegaly. EXTREMITIES: Have edema. NEUROLOGIC: Awake, alert, follows simple commands. MEDICATIONS: She is on Aldactone 25 mg daily, Cardizem-CD 120 mg daily, Coreg 3.125 mg twice a day, Eliquis 5 mg twice a day, ferrous sulfate 324 mg daily, Lasix 40 mg twice a day, nystatin with triamc inolone twice a day, Pepcid 20 mg daily, prednisone 20 mg daily, on Primacor IV drip, Singulair 10 mg daily, Tapazole 5 mg daily, Tylenol p.r.n., Zofran on a p.r.n. basis. LABORATORY DATA: Shows hemoglobin 11.2, hematocrit 35.6, WBC 4.8, platelet is 168. Sodium 143, pota ssium 4.4, chloride 100, bicarbonate ____, BUN 75, creatinine 1.3, glucose 151, calcium 9.1. TSH is 4.94. IMPRESSION AND PLAN: Cardiomyopathy with heart failure, pulmonary hypertension, obstructive sleep ap moses syndrome, chronic obstructive lung disease, renal failure, anemia, diabetes, degenerative joint d isease. From pulmonary point of view, she is doing better. Will continue to encourage CPAP use. Ke ep head at 45 degrees. On Primacor. She is supposed to be on Letairis; still did not get her supplie s. Continue gastric prophylaxis, anticoagulation, physical therapy. Follow up labs in the morning. Thank you, and will follow with you. Saira Gallardo MD cc: [id number] TT: 10/23/2016 11:38:56 Confirmation # [id number] Dictation # [id number] mn
--- NOTE | 2016-10-23 19:38 | PN ---
DATE: 10/23/2016 SUBJECTIVE: The patient was seen and examined on the bedside. Looks comfortable, sitting on the chair. Did not use CPAP. No coughing and no shortness of breath. No nausea, vomiting, diarrhea. Still having swelling of the legs. No fever, no chills. PHYSICAL EXAMINATION: VITAL SIGNS: Temperature 98, heart rate 70, respiratory rate 20, blood pressure 122/52, pulse oximetry 95% on nasal cannula. HEENT: Head normocephalic, atraumatic. Eyes: PERRLA. Extraocular muscles are intact Conjunctivae are clear. Nose patent. Mucous membranes moist. NECK: Supple. No carotid bruit, JVD or thyromegaly. CHEST: Bilaterally symmetrical. HEART: S1, S2 positive. LUNGS: Have bibasilar crackles. ABDOMEN: Soft. No organomegaly. EXTREMITIES: Positive edema. No cyanosis. NEUROLOGIC: The patient is awake, alert, follows simple commands. MEDICATIONS: She is on Aldactone, Cardizem, Coreg, Eliquis, ferrous sulfate, Lasix, Nystatin with triamcinolone, Pepcid, prednisone, tapering doses, Primacor , Singulair, Tapazole, Tylenol and Zofran. LABORATORY DATA: Hemoglobin 11.2, hematocrit 34.8, platelets 158. Sodium 143, potassium 4.4, BUN 75, creatinine 1.3. TSH 4.96. ASSESSMENT AND PLAN: The patient is a 70-year-old female with multiple medical problems, severe cardiomyopathy with congestive heart failure, pulmonary hypertension, obstructive sleep apnea syndrome, should be using CPAP, but noncompliant, chronic obstructive lung disease, renal failure, anemia, diabetes mellitus, not controlled, type 2 noninsulin requiring disease. The patient is on Primacor drip. Supposed to be on Lateris. Still did not get her supply. May be insurance problem. Continue gastrointestinal and deep venous thrombosis prophylaxis. We will follow up. Sariah Luna MD cc: [id number] TT: 10/23/2016 19:38:11 Confirmation # [id number] Dictation # [id number] shilpa HESTER
[2016-10-24] MEDS: Milrinone 20mg/100ml D5W 100 ML IV PRN (03:10)
[2016-10-24 07:55] LABS: POTASSIUM 4.8 mmol/L (3.6-5.0)
[2016-10-24] MEDS: methIMAzole 5 MG TAB PO SCH (10:45)
[2016-10-24] MEDS: diltiaZEM 120 mg/24 Hours CD Cap PO SCH (10:46)
[2016-10-24] MEDS: Nystatin-Triamcinolone Cream(30 gm) TOP SCH ×2 (10:49→18:13)
--- NOTE | 2016-10-24 16:24 | PN ---
DATE: 10/24/2016 SUBJECTIVE: The patient seen and examined on the bedside, sitting on the chair , feeling comfortable. Swelling of the leg is better. Shortness of breath is better. No nausea, vomiting, or diarrhea. No hematuria or hematochezia. No headache, no dizziness, no fever, no chills. PHYSICAL EXAMINATION: VITAL SIGNS: Temperature is 97.7, pulse 60, blood pressure 146/67, respiratory rate 20. HEENT: Head normocephalic, atraumatic. Eyes: PERRLA. Extraocular muscles are intact. Conjunctivae clear. Ears, Nose patent. Mucous membranes moist. NECK: Supple. No carotid bruits, JVD or thyromegaly. CHEST: Bilaterally symmetrical. HEART: S1, S2 positive. LUNGS: Clear to auscultation. ABDOMEN: Soft. Bowel sounds present. No organomegaly. EXTREMITIES: Trace edema, no cyanosis. Has discolorations like stasis dermatitis. NEUROLOGIC: The patient is awake, alert and moving all 4 extremities. No focal deficits. MEDICATIONS: Aldactone, Cardizem, Coreg, Feosol, Lasix. Triamcinolone/ nystatin, Pepcid, prednisone, Singulair, Tapazole, Tylenol, and Zofran. LABORATORY DATA: White blood cells noted , hemoglobin 11.2, hematocrit 35.6, platelets 168. ESR 66. Sodium 139, potassium 4.8, BUN is 68, creatinine 1.1 on admission 1.6. The BUN was 89. ASSESSMENT AND PLAN: The patient is a 70-year-old lady with history of leukopenia improved, anemia, renal insufficiency improving, hyperglycemia, hematuria, urinary tract infection, history of pulmonary hypertension, severe cardiomyopathy with heart failure, obstructive sleep apnea syndrome, chronic obstructive lung disease, diabetes mellitus, degenerative joint disease, hypothyroidism. Continue present treatment. Gastrointestinal and deep venous thrombosis prophylaxis. Needs Letairis but is not getting due to insurance problem. Reviewed Dr. Gallardo's notes and Dr. Chicas's notes also. We will follow up. Sariah Luna MD cc: [id number] TT: 10/24/2016 16:24:07 Confirmation # [id number] Dictation # [id number] jn KACIE
--- NOTE | 2016-10-24 18:27 | PN ---
DATE: 10/24/2016 REFERRING PHYSICIAN: Dr. Luna. SUBJECTIVE: She is out of bed to chair, feels better. No headache, no rhinitis, breathing is better . No nausea, no vomiting, no diarrhea. Still having leg swelling. OBJECTIVE: GENERAL: No acute distress. VITAL SIGNS: Temperature is 99, heart rate 64, respiratory rate is 18, blood pressure 188/73, pulse ox 96% on nasal cannula. HEENT: Moist mucous membrane. No ulcer or oral thrush noted. NECK: Supple. No JVD. LUNGS: Has a fair airflow. HEART: S1 and S2. ABDOMEN: Soft, nontender. No organomegaly. EXTREMITIES: Has edema of both lower extremities. NEUROLOGIC: Awake, alert, follows simple command. MEDICATIONS: She is on Aldactone 25 mg daily, Cardizem-CD 120 mg daily, Coreg 3.125 mg twice a day, Eliquis 5 mg twice a day, ferrous sulfate 324 mg daily, Lasix 40 mg twice a day, Pepcid 20 mg daily, prednisone 10 mg daily, Singulair 10 mg daily, Toprol 5 mg daily, Tylenol p.r.n., Zofran 4 mg daily. LABORATORY DATA: Shows sed rate is 56. Sodium 139, potassium 4.8, chloride 97, bicarbonate 36, BUN 68, creatinine 1.1, glucose 109, calcium is 9.0. IMPRESSION AND PLAN: Cardiomyopathy with heart failure, pulmonary hypertension, obstructive sleep ap moses syndrome, chronic obstructive lung disease, renal failure, anemia, diabetes, degenerative joint d isease. She ran out of pulmonary hypertension medication. We will see if we can provide the sample for Letairis, may add hydralazine for now. Also, patient's CPAP is not working, could not use for e last couple of months. Need to schedule her for ____ likely study, qualify for CPAP. Follow up la bs in the morning. Thank you and will follow with you. Saira Gallardo MD cc: [id number] TT: 10/24/2016 18:26:26 Confirmation # [id number] Dictation # [id number] jn
[2016-10-25 06:00] VITALS: O2SAT 96
[2016-10-25 07:54] LABS: POTASSIUM 5.1 mmol/L (3.6-5.0)
[2016-10-25] MEDS: diltiaZEM 120 mg/24 Hours CD Cap PO SCH (09:42)
[2016-10-25] MEDS: methIMAzole 5 MG TAB PO SCH (09:43)
[2016-10-25] MEDS: Nystatin-Triamcinolone Cream(30 gm) TOP SCH (09:45)
[2016-10-25 12:52] VITALS: BP 111/74; PULSE 96; RESP 16; TEMP 97.8
--- NOTE | 2016-10-25 17:59 | PN ---
DATE: 10/25/2016 REFERRING PHYSICIAN: Dr. Luna. SUBJECTIVE: She is out of bed to chair. The night was unremarkable. Decreased shortness of breath, decreased cough. No nausea, no vomiting, no diarrhea. Still having leg swelling. OBJECTIVE: GENERAL: No acute distress. VITAL SIGNS: Temp is 98, heart rate is 96, respiratory rate is 20, blood pressure 111/74. HEENT: Moist mucous membranes. Crowded airway. NECK: Supple. No JVD. LUNGS: Has a fair airflow with few rhonchi. HEART: S1 and S2. ABDOMEN: Soft and nontender. No organomegaly. EXTREMITIES: Has edema of the lower extremities. NEUROLOGIC: Awake, alert, follows simple command. MEDICATIONS: She is on Aldactone 25 mg daily, hydralazine 10 mg q.i.d., Cardizem-CD 120 mg daily, Co reg 3.125 mg daily, Eliquis 5 mg twice a day, ferrous sulfate 324 mg daily, Lasix 40 mg twice a day, Pepcid 20 mg daily, prednisone 10 mg daily, Singulair 10 mg daily, Lopressor 5 mg daily, Tylenol p.r. n., Zofran on a p.r.n. basis. LABORATORY DATA: Reviewed and noted. Sodium 138, potassium 5.1, chloride 94, bicarbonate is 36. BU N 74, creatinine 1.2, glucose is 79, calcium is 9.0. IMPRESSION AND PLAN: Cardiomyopathy with heart failure, pulmonary hypertension, obstructive sleep ap moses syndrome, chronic obstructive lung disease, renal insufficiency, anemia, diabetes, congestive hea rt failure. I spoke to the nurse practitioner on the floor. The patient will benefit from subacute facility. safe discharge, not safe with walking. Also, waiting for medication to arrive . 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 and inhaled bronchodilator. Sleep apnea precaution. She refused to use CPAP. Understands risks, benefits and cure. Saira Gallardo MD cc: [id number] TT: 10/25/2016 17:59:00 Confirmation # [id number] Dictation # [id number] mn
--- NOTE | 2016-10-27 08:09 | DS ---
CHIEF COMPLAINT: Feeling fatigued, tired, pain in the legs, shortness of breath. HISTORY OF PRESENT ILLNESS: This patient is 68 years old, my private patient with past medical history of congestive heart failure, atrial fibrillation, hypertension , BiPAP. Came to the Emergency Room complaining about a weakness and body aches since this morning, shortness of breath and pain in the legs. The patient's pain is in the lower back, abdomen and lower extremities and practically she has pain everywhere in the body. The patient denied fever or chills. We admitted the patient. Ultrasound of the abdomen, seen by tool procurement coordinator, Dr. Gallardo, medicines given. Education done to use BiPAP, even I educated the patient's son and patient daughter, to use the BiPAP because of pul hypertension and obstructive sleep apnea. She understands. Transfer the patient to TCU for continuity of care and for further management. PAST MEDICAL HISTORY: swelling in both extremities, congestive heart failure, hypertension, COPD, pulmonary hypertension, ataxia, valve replacement. FAMILY HISTORY: Father and mother noncontributory. HABITS: No drugs. No ethanol. ALLERGIES: The patient is not allergic to any medications. HOME MEDICATIONS: Reviewed by me. REVIEW OF SYSTEMS: The patient is examined on the bedside on 10/25/2016 in the telemetry. Son was sitting on the bedside also. Looks comfortable. No nausea , vomiting, or diarrhea. No hematuria or hematochezia, feeling a bit better. Ready to go to TCU. Decreased shortness of breath, decreased cough. Still having leg swelling but improving very slowly. No new complaints. PHYSICAL EXAMINATION: VITAL SIGNS: Temperature 98.1, heart rate 96, respiratory rate 20, blood pressure 111/74. HEENT: Head normocephalic, atraumatic. Eyes: PERRLA. Extraocular muscles intact. Conjunctivae pink. Ears, Nose patent. Mucous membranes moist. NECK: Supple. No carotid bruit, JVD or thyromegaly. CHEST: Bilaterally symmetrical. HEART: S1, S2 positive. LUNGS: Clear to auscultation. ABDOMEN: Soft. Bowel sounds present. No organomegaly. EXTREMITIES: No edema, no cyanosis . NEUROLOGIC. no focal deficit. MEDICATIONS: Aldactone, hydralazine, Cardizem, Coreg, Eliquis, ferrous sulfate , prednisone, Singulair, Lopressor, Tylenol, Zofran. LABORATORY DATA: Reviewed by me. Sodium 138, potassium 5.1, BUN 74, creatinine 1.2, glucose 79. ASSESSMENT AND PLAN: The patient is a 70-year-old lady with severe cardiomyopathy, congestive heart failure, pulmonary hypertension, chronic obstructive pulmonary disease, obstructive sleep apnea syndrome, renal insufficiency not requiring dialysis yet, anemia, diabetes mellitus, hypothyroidism. The patient is going to TCU for physical therapy and continuity of care. Will continue present treatment there, present consultants also. Will continue pulmonary vasodilator, hydralazine, sleep apnea precautions. The patient refused to use CPAP, urged to use CPAP, understands the risks and benefits. Sariah Luna MD cc: [id number] TT: 10/26/2016 18:59:34 jn MTDD
== END 2016-10-25 14:51 | DRG 293 ==
LOC: ED 10:23 → ERH 13:06 → 2RNO 14:43 → OBSVTOIN 10-21 18:30
PROVIDERS: ADMIT Internal Medicine; ATTEND Internal Medicine
DX: I11.0 Hypertensive heart disease with heart failure (principal); E11.65 Type 2 diabetes mellitus with hyperglycemia; I42.9 Cardiomyopathy, unspecified; I27.2 Other secondary pulmonary hypertension; I48.0 Paroxysmal atrial fibrillation; J44.9 Chronic obstructive pulmonary disease, unspecified; I50.23 Acute on chronic systolic (congestive) heart failure; G47.33 Obstructive sleep apnea (adult) (pediatric); R00.1 Bradycardia, unspecified; E66.9 Obesity, unspecified; D64.9 Anemia, unspecified; E03.9 Hypothyroidism, unspecified; Z91.19 Patient's noncompliance with other medical treatment and regimen; Z68.30 Body mass index [BMI] 30.0-30.9, adult

== ENCOUNTER 2016-10-25 15:07 | Inpatient (IN) | payer OTHER ==
[2016-10-25 15:13] VITALS: BMI 27.8
[2016-10-25] MEDS: Nystatin-Triamcinolone Cream(30 gm) TOP SCH (18:13)
[2016-10-26] MEDS: methIMAzole 5 MG TAB PO SCH (09:36)
[2016-10-26] MEDS: diltiaZEM 120 mg/24 Hours CD Cap PO SCH (09:42)
[2016-10-26] MEDS: Nystatin-Triamcinolone Cream(30 gm) TOP SCH ×2 (09:47→17:28)
--- NOTE | 2016-10-26 15:47 | CON ---
DATE: 10/26/2016 The patient is in room 322, bed 2. REASON FOR CONSULTATION AND FOLLOWUP: Shortness of breath, cardiomyopathy, decompensated congestive heart failure, status post mitral valve replacement, pulmonary hypertension. HISTORY OF PRESENT ILLNESS: The patient is a 70-year-old female known to have congestive heart failu re, hypertension, hyperlipidemia, COPD, pulmonary hypertension, paroxysmal to chronic atrial fibrilla tion, renal insufficiency, was admitted with shortness of breath, generalized weakness, increased leg swelling, increased abdominal girth and shortness of breath to the medical floor. She was treated a nd she got improved and now she is transferred to transitional care unit for deconditioning and physi dmitri therapy. The patient from cardiac point of view asymptomatic at present. PAST MEDICAL HISTORY: Significant for chronic renal insufficiency, status post dialysis on the last admission, history of decompensated congestive heart failure multiple times, cardiomyopathy, history of mitral regurgitation, history of MVR. PAST SURGICAL HISTORY: Significant for MVR many years ago. CARDIAC WORKUP HISTORY: The patient had a stress test 05/30/2014, which showed ejection fraction of 22%. The patient had most recent echo 11/02/2014, which showed ejection fraction 35%-40%. Status pos t MVR, history of renal dysfunction, atrial fibrillation, was on Eliquis last time. The patient had repeat echo in 06/2016 that showed dilated IVC, 4-chamber dilatation, ejection fraction 25%-30%, at th at time patient was on Dobutrex drip, moderate aortic regurg, mild valvular aortic stenosis, status p ost MVR repair, trace MR, status post moderate to severe tricuspid regurg, right ventricular systolic pressure 64 mmHg. MUGA scan was done on 07/16/2016, showed ejection fraction of 18%. MEDICATIONS AT HOME: Include Cardizem 120 mg daily, spironolactone, Tapazole, methimazole, Lasix, ca rvedilol, apixaban, Coreg. ALLERGIES: The patient denies any allergies. REVIEW OF SYSTEMS: All the systems were reviewed, positives mentioned in the history, otherwise nega tive. PERSONAL HISTORY: No history of smoking or drinking. PHYSICAL EXAMINATION: VITAL SIGNS: Blood pressure 123/54, respirations 16, pulse 68, temperature 98.2. HEAD: Normocephalic. EYES: Pupils normal. Conjunctivae slightly pale. NECK: JVP low. Carotid equal. THORAX: AP diameter normal. LUNGS: Clear. CARDIOVASCULAR: S1, S2, ejection systolic murmur grade III/. No rub. ABDOMEN: Soft, no tenderness, no organomegaly. EXTREMITIES: The patient has chronic changes of chronic venous stasis. Edema of legs has much impro armida now. LABORATORY DATA: WBC 4.8, hemoglobin 11.2, hematocrit 35.6, platelet 168. Sodium 138, potassium 5.1 , BUN 74, creatinine 1.2, calcium 9.0, glucose 79, AST 58, ALT 33, cholesterol 122, HDL 32, LDL 66. TSH 4.94. Chest x-ray 10/20/2016 showed severe cardiomegaly, small right pleural effusion. EKG 10/20/2016 showed sinus rhythm with 1 PVC, ST-T changes. DIAGNOSES: Decompensated congestive heart failure, acute on chronic, left ventricular systolic failu re, ejection fraction 18% by MUGA scan on 07/16/2016, status post mitral valve replacement, trace mitr al regurgitation, 4-chamber dilatation, cardiomyopathy, pulmonary hypertension, right ventricular sys tolic pressure 64 mmHg, severe tricuspid regurgitation, status post tricuspid repair, deconditioning, hypertension, hyperlipidemia, chronic obstructive pulmonary disease, atrial fibrillation, renal insu fficiency, anemia. PLAN: The patient on spironolactone 25 mg p.o. daily, hydralazine 10 mg q.i.d., Cardizem-CD 120 p.o. daily, carvedilol 3.125 b.i.d., Eliquis 5 mg b.i.d. We will change it to 2.5 b.i.d. Tapazole 5 mg p.o. daily, prednisone 10 mg daily, Singulair 10 mg daily, Pepcid 20 mg daily, ferrous sulfate 325 mg p.o. daily, Lasix 40 mg b.i.d. Continue physical therapy for deconditioning. Will repeat labs in t he morning to evaluate potassium and kidney function and we will follow with you. Saira Mantilla MD cc: [id number] TT: 10/26/2016 15:46:46 Confirmation # [id number] Dictation # [id number] en
--- NOTE | 2016-10-27 01:49 | CON ---
DATE: 10/26/2016 REFERRING PHYSICIAN: Dr. Luna. REASON FOR CONSULT: Chronic obstructive lung disease, pulmonary hypertension, sleep apnea syndrome. HISTORY OF PRESENT ILLNESS: This is a 70-year-old female with known history of cardiomyopathy, diast olic and systolic dysfunction, history of pulmonary hypertension, sleep apnea syndrome, chronic lung disease, hyperlipidemia, paroxysmal atrial fibrillation, renal insufficiency, recently admitted to [facility] side of the hospital with respiratory failure requiring IV Primacor, which dramatically increased her improvement of cardiopulmonary system. She is supposed to be on CPAP as an outpatient. Apparen tly, her machine broke down and could not use over the last couple of weeks. Also, she had an order for pulmonary hypertension medication. She was on Letairis 5 mg daily. Since in the hospital, refus ed to use CPAP. According to her, she cannot tolerate CPAP mask. At home, she had a nasal pillow ma sk. Presently admitted to [facility] for continued care. Discharged while unsafe from the acute side blanche use could not ambulate to satisfaction. PAST MEDICAL HISTORY: Chronic obstructive lung disease, obstructive sleep apnea syndrome, cardiomyop athy with systolic and diastolic dysfunction, pulmonary hypertension, renal insufficiency, degenerati ve joint disease, history of mitral valve regurgitation. SOCIAL HISTORY: Denied any smoking or alcohol use. FAMILY HISTORY: Positive for cardiomyopathy, diabetes, sleep apnea syndrome. ALLERGIES: None known. MEDICATIONS: She is on Aldactone 25 mg daily, hydralazine 10 mg q.i.d., Cardizem 120 mg daily, Coreg 3.125 mg twice a day, Eliquis 2.5 mg twice a day, ferrous sulfate 324 mg daily, Lasix 40 mg twice a day, nystatin affected area twice a day, Pepcid 20 mg daily, prednisone 10 mg daily, Singulair 10 mg daily, 5 mg daily, Tylenol p.r.n. basis. REVIEW OF SYSTEMS: No headache, no rhinitis. Cough and shortness of breath is better. No chest lila n, no nausea, no vomiting, no diarrhea. Still having leg swelling. PHYSICAL EXAMINATION: GENERAL: Sitting up in a chair, feels better. VITAL SIGNS: Temperature is 98, heart rate of 68, respiratory rate is 16, blood pressure 138/57, pul se ox 97% on room air. HEENT: Moist mucous membranes. Small oral cavity. Crowded airway. NECK: Supple, no JVD. LUNGS: Have a few crackles. HEART: S1 and S2. ABDOMEN: Soft, nontender. No organomegaly. EXTREMITIES: There is edema of the lower extremities. NEUROLOGIC: Awake, alert, follows simple commands. LABORATORY DATA: Reviewed. No new lab is available. IMPRESSION AND PLAN: Cardiomyopathy with both systolic and diastolic dysfunction, history of pulmona ry hypertension, chronic obstructive lung disease, obstructive sleep apnea syndrome, renal insufficie ncy, anemia, degenerative joint disease, noncompliant with the CPAP and also noncompliant with Letair is, seen by cardiology. Continue vasodilator after pulmonary vasodilator, diuretics, gastric p rophylaxis, deep venous thrombosis prophylaxis. Continue therapy. Fall precautions. Refusing to us e CPAP with nasal or full face mask and nasal pillow mask is not is not available in the hospital set ting. Oupatient, she needs sleep study to qualify for a CPAP and titrate pressures. Will keep working to get her Letairis. Continue therapy. Thank you and will follow with you. Saira Gallardo MD cc: [id number] TT: 10/27/2016 01:48:42 Confirmation # [id number] Dictation # [id number] mn
[2016-10-27 07:07] LABS: HEMATOCRIT 35.6 % (36.0-48.0); MEAN CELL VOLUME 96.2 fL (80.0-105.0); MEAN CORPUSCULAR HGB CONC 31.2 g/dl (31.0-37.0); MEAN PLATELET VOLUME 9.5 fl (7.0-11.0); RED CELL DISTRIBUTION WIDTH 16.4 % (11.5-14.5); WHITE BLOOD COUNT 6.1 10^3/ul (4.5-11.0)
[2016-10-27 07:10] LABS: ALB/GLOB RATIO 0.9 (1.1-1.8); BILIRUBIN,TOTAL 1.1 mg/dL (0.2-1.3); CALCIUM 8.8 mg/dL (8.4-10.5); POTASSIUM 5.5 mmol/L (3.6-5.0); TOTAL PROTEIN 6.6 g/dL (5.8-8.3)
[2016-10-27 07:17] LABS: IRON 54 ug/dL (45-180)
--- NOTE | 2016-10-27 07:23 | HP ---
CHIEF COMPLAINT: Shortness of breath, leg pain, fatigue, tired. HISTORY OF PRESENT ILLNESS: The patient is a 70-year-old, my private patient, history of multiple medical problems, COPD, hypertension, hypercholesterolemia, pulmonary hypertension, paroxysmal atrial fibrillation, renal insufficiency, was admitted on acute side for shortness of breath, generalized weakness, increased swelling of the leg. shortness of breath on the medical floor. The patient stayed on the telemetry a couple of days, got medical treatment. Cardiology saw the patient. Product Safety Engineer saw the patient, improved, transferred to TCU for continuity of care and to give her physical therapy. PAST MEDICAL HISTORY: Significant for chronic renal insufficiency, status post dialysis on the last admission, history of decompensated congestive heart failure multiple times; cardiomyopathy, mitral regurgitation, history of MVR, obstructive sleep apnea syndrome, COPD. MEDICATIONS: Cardizem, spironolactone, Tapazole, methimazole, Lasix, carvedilol , apixaban, Coreg. ALLERGIES: The patient is not allergic with any medication. FAMILY HISTORY: Father and mother noncontributory. HABITS: Never smoked, no drugs, no ethanol. REVIEW OF SYSTEMS: All the systems are reviewed, positive mentioned above in the H and P. Otherwise negative except the swelling of the leg that is improving. Shortness of breath is improving. No chest pain. PHYSICAL EXAMINATION: VITAL SIGNS: Blood pressure 120/80 , respiratory rate 16, pulse 68, temperature 98.2. HEENT: Head normocephalic, atraumatic. Eyes: PERRLA. Extraocular muscles intact. Conjunctivae clear. Nose patent. NECK: Supple. No carotid bruit, JVD or thyromegaly. CHEST: Bilaterally symmetrical. HEART: S1, S2. LUNGS: Clear to auscultation. ABDOMEN: Soft. Bowel sounds present. No organomegaly. EXTREMITIES: No edema, no cyanosis. NEUROLOGIC: The patient is awake, alert, moving all 4 extremities. No focal deficits. LABORATORY DATA: White blood cells 4.8, hemoglobin 11.2, hematocrit 35.6, platelets 158. Sodium 138, potassium 5.1, BUN 74, creatinine 1.2, AST 58, ALT 33, cholesterol 122, HDL 32, LDL 66. TSH 4.94. ASSESSMENT AND PLAN: The patient has decompensated congestive heart failure, acute on chronic left ventricular systolic failure, ejection fraction 18% by MUGA scan. Status post mitral valve replacement, trace mitral regurgitation, all 4 chambers dilated, cardiomyopathy, pulmonary hypertension, chronic obstructive pulmonary disease, obstructive sleep apnea syndrome, right ventricular systolic pressure of 64 mmHg, hypertension, hypercholesterolemia, chronic diabetes mellitus, renal insufficiency, stable anemia. The patient will continue spironolactone, hydralazine, Cardizem, carvedilol, Eliquis. The patient was on Eliquis [address] Mantilla changed it to 2.5 b.i.d. Continue Tapazole, prednisone, Singulair, Pepcid, iron sulfate, Lasix. Physical therapy, out of bed. Daughter and son were on the bedside. Length of time discussion done. Urged to use BiPAP. Education done. We will follow up. Sariah Luna MD cc: [id number] TT: 10/27/2016 07:22:55 tn MTDD
[2016-10-27] MEDS: diltiaZEM 120 mg/24 Hours CD Cap PO SCH (10:10)
[2016-10-27] MEDS: methIMAzole 5 MG TAB PO SCH (10:12)
[2016-10-27] MEDS: Nystatin-Triamcinolone Cream(30 gm) TOP SCH ×2 (10:12→18:07)
--- NOTE | 2016-10-27 12:18 | PN ---
DATE: 10/27/2016 REASON FOR CONSULTATION AND FOLLOWUP: Decompensated congestive heart failure, acute on chronic systo lic dysfunction, status post MVR bioprosthetic. BRIEF CLINICAL HISTORY: A 70-year-old female with a past medical history significant for hypertensio n, hyperlipidemia, COPD, pulmonary hypertension, paroxysmal atrial fibrillation, renal insufficiency, admitted to the acute floor with acute decompensated congestive heart failure. The patient was katiana porter with IV Primacor. Now, the patient is transferred to transitional care unit for the continuity o f care. Denies any chest pain, shortness of breath, any palpitation. Getting rehab. Complains of d ecreased of the legs, decreased shortness of breath. PHYSICAL EXAMINATION: VITAL SIGNS: Temperature afebrile, heart rate 52, blood pressure 145/56. HEENT: PERRLA. Extraocular muscles intact. NECK: Supple. No carotid bruits. No thyromegaly. CHEST: Clear to auscultation. HEART: S1, S2 regular. ABDOMEN: Soft. EXTREMITIES: Clubbing and cyanosis negative. LABORATORY DATA: Blood workup as follows: WBC 6.9, hemoglobin 11.8, hematocrit 35.6, platelet count 171. Chemistry shows sodium ____, potassium 5.5, chloride 92, carbon dioxide 39, anion gap of 11, B UN 83, creatinine 1.4. IMPRESSION: Hyperkalemia, renal insufficiency, creatinine clearance 30 mL an hour, diabetes, hypert ension, hyperlipidemia, paroxysmal atrial fibrillation, congestive heart failure, decompensated conge stive heart failure, cardiomyopathy, nonischemic; status post mitral valve replacement. RECOMMENDATION: Discontinue spironolactone because of hyperkalemia, repeat potassium. If it is more than 4.5, give Kayexalate. Continue adjusted dose reduced apixaban. Continue Coreg, continue Cardi zem. We will follow with you. Thank you, Dr. Luna, for providing us the opportunity in taking care of the patient. We will repea t stat potassium. Saira Chicas MD cc: [id number] TT: 10/27/2016 12:17:53 Confirmation # [id number] Dictation # [id number] tn
[2016-10-27] MEDS ORDERED: Sod Polystyrene Sulf 15 gm/60 ml Oral Susp PO ONE (13:30)
[2016-10-27 13:45] LABS: FOLATE 10.1 ng/mL
--- NOTE | 2016-10-28 02:46 | PN ---
DATE: 10/27/2016 REFERRING PHYSICIAN: Dr. Luna. SUBJECTIVE: The patient is sitting out of bed to chair, night was unremarkable, done well in therapy and able to walk with the help of therapist and walker, able to go to bathroom independently, breath ing is better. Still gets short of breath. No nausea, no vomiting, no diarrhea. Still having leg s welling. OBJECTIVE: GENERAL: In no acute distress. VITAL SIGNS: Temperature is 98, heart rate is 75, respiratory rate is 18, blood pressure 169/76, pul se ox 99% on 2 liter nasal cannula. HEENT: Moist mucous membranes. Crowded airway. Mallampati score is 4. NECK: Supple. No JVD. LUNGS: Have a few crackles. HEART: S1, S2. ABDOMEN: Soft, nontender. No organomegaly. EXTREMITIES: Does have edema. NEUROLOGIC: Awake, alert, follows simple commands. MEDICATIONS: She is on hydralazine 10 mg 4 times a day. Cardizem-CD 120 mg daily, Coreg 3.125 mg tw ice a day, Eliquis 2.5 mg twice a day, ferrous sulfate 324 mg daily, Lasix 40 mg twice a day, Pepcid 20 mg daily, prednisone 10 mg daily, Singulair 10 mg daily, trazodone 5 mg daily, Tylenol p.r.n. basi s. LABORATORY DATA: Shows hemoglobin 11.1, hematocrit 35.6, WBC 6.1, platelet is 171. Sodium 136, pota ssium 5.5, chloride 92, bicarbonate 29, BUN 83, creatinine 1.4, glucose 76, calcium is 8.8, hemoglobi n A1c 6.3, Iron is 54, AST 36, ALT 34, and alkaline phosphatase is 126. Albumin 3.2. Cholesterol 13 7/ ,60, folate 10.1, TSH 5.3. IMPRESSION AND PLAN: Cardiomyopathy with systolic and diastolic dysfunction, history of pulmonary hy pertension, chronic obstructive lung disease, obstructive sleep apnea syndrome with renal insufficien cy, anemia, degenerative joint disease. Pulmonary point of view, doing okay. Will continue bronchod ilator. Continue diuretics after low reduce. May increase the hydralazine. Gastric prophylaxis. D ecrease prednisone to 5 mg daily for Fall precaution. Continue therapy. Thank you and will follow w ith you. Saira Gallardo MD cc: [facility] TT: 10/28/2016 02:46:13 Confirmation # [id number] Dictation # [id number] mn
--- NOTE | 2016-10-28 07:23 | PN ---
DATE: 10/27/2016 SUBJECTIVE: The patient was seen and examined on the bedside, sitting on the chair. Swelling of the legs is getting better. Shortness of breath is getting better. Coughing is getting better. No fever, no chills, no nausea, vomiting, or diarrhea. No hematuria or hematochezia. No dyspnea. PHYSICAL EXAMINATION: VITAL SIGNS: Temperature is 98.6, heart rate 52, blood pressure 145/56, respiratory rate 16. HEENT: Head normocephalic, atraumatic. Eyes: PERRLA. Extraocular muscles intact. Conjunctivae clear. Nose patent. Mucous membranes moist. NECK: Supple. No carotid bruit, JVD or thyromegaly. CHEST: Bilaterally symmetrical. HEART: S1, S2 positive. LUNGS: Clear to auscultation. ABDOMEN: Soft. Bowel sounds positive. No organomegaly. EXTREMITIES: No edema, no cyanosis. NEUROLOGIC: The patient is awake, alert, moving all 4 extremities. No focal deficits. MEDICATIONS: Hydralazine, Cardizem, Coreg, Eliquis, Feosol, Lasix, nystatin, Pepcid, prednisone, Singular, trazodone, Tylenol. LABORATORY DATA: White blood cells 6.1, hemoglobin 11.1, hematocrit 35.6, platelets 171. Sodium 136, potassium 5.4, BUN 83, creatinine 1.2. Vitamin B12 950. TSH 5.330. ASSESSMENT AND PLAN: The patient is a 70-year-old lady with hyperkalemia. We will address that. Renal insufficiency, improving. Iron deficiency, hypothyroidism, anemia, history of congestive heart failure, coronary artery disease, pulmonary hypertension, chronic obstructive pulmonary disease, cardiomyopathy with systolic and diastolic dysfunction, chronic obstructive pulmonary disease, obstructive sleep apnea syndrome, degenerative joint disease , noncompliance with CPAP. Discussion done with patient's daughter and son. Continue vasodilator, diuretics. Gastric prophylaxis, deep vein thrombosis prophylaxis. We will repeat potassium. fall precautions. Refusing the use of BiPAP because she does not like mask. the mask she likes, is broken. Needs sleep study as outpatient for CPAP and to CPAP titration procedure. Gastrointestinal and deep venous thrombosis prophylaxis. Repeat labs. We will follow up. Sariah Luna MD cc: [id number] TT: 10/28/2016 07:22:59 Confirmation # [id number] Dictation # [id number] tn MTDD
[2016-10-28 07:50] LABS: CALCIUM 8.9 mg/dL (8.4-10.5); POTASSIUM 5.2 mmol/L (3.6-5.0)
[2016-10-28] MEDS: diltiaZEM 120 mg/24 Hours CD Cap PO SCH (10:35)
[2016-10-28] MEDS: Nystatin-Triamcinolone Cream(30 gm) TOP SCH ×2 (10:37→18:08)
[2016-10-28] MEDS: methIMAzole 5 MG TAB PO SCH (11:00)
--- NOTE | 2016-10-28 17:11 | PN ---
DATE: 10/28/2016 REFERRING PHYSICIAN: Dr. Luna. SUBJECTIVE: She is out of bed to chair, night was unremarkable, doing well in therapy. Complaining about her feet hurting when she walks, still short of breath with exertion. No cough, no nausea, no vomiting, and no diarrhea. Still having leg swelling. OBJECTIVE: GENERAL: No acute distress. VITAL SIGNS: Temp is 98, heart rate is 64, respiratory rate 16 at rest, blood pressure 160/70, pulse ox 98% on nasal cannula. HEENT: Moist mucous membrane. Crowded airway. NECK: Supple, no JVD. LUNGS: Have a few crackles. HEART: S1, S2. ABDOMEN: Soft, nontender. No organomegaly. EXTREMITIES: Does have edema. NEUROLOGIC: Awake, alert, follows simple command. MEDICATIONS: She is on hydralazine 25 mg q.i.d., Cardizem-CD 120 mg daily, Coreg 3.125 mg twice a da y, Eliquis 2.5 mg twice a day, ferrous sulfate 324 mg daily, Lasix 40 mg twice a day, Pepcid 20 mg da sal, prednisone 5 mg daily, Singulair 10 mg daily, Tapazole 5 mg daily, Tylenol p.r.n. basis. LABORATORY DATA: Reviewed and shows sodium 137, potassium 5.2, chloride 90, bicarbonate 40, BUN is 7 4, creatinine 1.4, glucose is 80, calcium is 8.9. TSH is 5.33. IMPRESSION AND PLAN: Cardiomyopathy with systolic and diastolic dysfunction, severe pulmonary hypert ension, chronic obstructive lung disease, obstructive sleep apnea syndrome, renal insufficiency, anem ia, degenerative joint disease. Spoke to patient's family at bedside. All the questions answered. The patient is already on Cardizem, her hydralazine increased to 25 mg q.i.d. yesterday. Continue br onchodilator. May need podiatry consult to take care of the feet, will discontinue prednisone in few days. Fall precaution. Outpatient need attended sleep study. Her home CPAP machine is broken, his tory of pulmonary hypertension, need to get her CPAP as soon as possible, cannot use hospital mask ap parently. Thank you and we will follow with you. Saira Gallardo MD cc: [facility] TT: 10/28/2016 17:11:01 Confirmation # [id number] Dictation # [id number] cn
[2016-10-28] MEDS ORDERED: Sod Polystyrene Sulf 15 gm/60 ml Oral Susp PO ONE (18:04)
--- NOTE | 2016-10-28 18:31 | PN ---
DATE: 10/28/2016 The patient in room 322, bed 2. REASON FOR CONSULTATION AND FOLLOWUP: Decompensated congestive heart failure, acute on chronic; syst olic dysfunction, status post AVR bioprosthetic valve. HISTORY OF PRESENT ILLNESS: The patient is a 70-year-old female with a past medical history signific ant for hypertension, hyperlipidemia, COPD, pulmonary hypertension, paroxysmal atrial fibrillation, r enal insufficiency, admitted to medical floor with acute decompensated congestive heart failure. The patient treated and improved and now she is transferred to the transitional care unit for deconditio rome and physical therapy. The patient is denying any chest pain, shortness of breath or palpitation . PHYSICAL EXAMINATION: VITAL SIGNS: Blood pressure 137/65, respirations 15, pulse 65, temperature 97.9. HEAD: Normocephalic. EYES: Pupils normal. Conjunctivae slightly pale. NECK: JVP low. Carotid equal. THORAX: AP diameter normal. LUNGS: No significant rales. CARDIOVASCULAR: S1, S2, systolic murmur, no rub. ABDOMEN: Soft, nontender, no organomegaly. EXTREMITIES: No clubbing, no cyanosis. LABORATORY DATA: WBC 6.1, hemoglobin 11.1, hematocrit 35.6, platelets 171. Sodium 137, potassium 5. 2, BUN 74, creatinine 1.4, random glucose 80. Calcium 8.9. DIAGNOSES: Renal insufficiency, hyperkalemia, diabetes, hypertension, hyperlipidemia, paroxysmal atr ial fibrillation, congestive heart failure, decompensated due to acute on chronic left ventricular sy stolic failure; cardiomyopathy, nonischemic, status post mitral valve replacement; anemia. PLAN: The patient is on hydralazine 25 mg q.i.d., diltiazem CD 120 mg p.o. daily, carvedilol 3.125 p .o. b.i.d., Eliquis 2.5 b.i.d., ferrous sulfate 324 mg p.o. daily, furosemide 40 b.i.d., Pepcid 20 da sal, prednisone 5 mg daily, Singulair 10 daily, atenolol 5 mg p.o. daily. The patient yesterday rece ived Kayexalate. Potassium came down from 5.4-5.2. We will give another dose of Kayexalate today an d will repeat SMA-7 in the morning and will follow with you. Saira Mantilla MD cc: [id number] TT: 10/28/2016 18:30:44 Confirmation # [id number] Dictation # [id number] dn
--- NOTE | 2016-10-29 17:01 | PN ---
DATE: 10/29/2016 REASON FOR CONSULTATION AND FOLLOWUP: Mitral valve repair, cardiomyopathy, paroxysmal atrial fibrillation. BRIEF CLINICAL HISTORY: This is a 70-year-old female with past medical history significant for obesity, diabetes, hypertension, hyperlipidemia, paroxysmal atrial fibrillation, renal insufficiency, status post MVR bioprosthetic, paroxysmal atrial fibrillation, admitted with decompensated congestive heart failure. The patient was initially treated on the floor, now patient is in transitional care unit for the continuity of care. Denies any chest pain, shortness of breath, any palpitation. Getting rehab. PHYSICAL EXAMINATION: As follows: VITAL SIGNS: Temperature afebrile, heart rate 80, blood pressure 130/80. HEENT: PERRLA, intact. NECK: Supple. No carotid bruits. No thyromegaly. CHEST: Clear to auscultation. HEART: S1, S2 regular. ABDOMEN: Soft. EXTREMITIES: Clubbing and cyanosis negative. IMPRESSION: Mitral regurgitation, status post mitral valve replacement, diabetes, hypertension, hyperlipidemia, paroxysmal atrial fibrillation, renal insufficiency, obesity. RECOMMENDATION: Continue diuretics. Monitor electrolytes. Follow up the lab when it is available, system is down. We will follow with you. Thank you, Dr. Luna, for providing the opportunity in taking care of the patient. Saira Chicas MD cc: [id number] TT: 10/29/2016 17:00:23 Confirmation # [id number] Dictation # [id number] sn HESTER
[2016-10-29 21:51] LABS: ADD MANUAL DIFF? NO
--- NOTE | 2016-10-29 22:55 | PN ---
DATE: 10/29/2016 REFERRING PHYSICIAN: Dr. Luna. SUBJECTIVE: She is out of bed to chair, having dinner, night was unremarkable. Does not use CPAP. No nausea, no vomiting, no diarrhea. Still has some leg swelling, ambulated with the help of therapi st and walked today. OBJECTIVE: GENERAL: No acute distress. VITAL SIGNS: Temperature is 98, heart rate is 60, respiratory rate is 20, blood pressure 137/69. HEENT: Moist mucous membranes. Crowded airway. NECK: Supple. No JVD. LUNGS: Has a fair airflow with crackles at the bases. HEART: S1, S2. ABDOMEN: Soft, nontender. No organomegaly. EXTREMITIES: There is edema. NEUROLOGIC: Awake, alert, follows simple command. MEDICATIONS: She is on hydralazine 25 mg q.i.d., Cardizem-CD 120 mg daily, Coreg 3.125 mg twice a da y, Eliquis 2.5 mg twice daily, ferrous sulfate 324 mg daily, Lasix 40 mg twice a day, nystatin to aff ected area twice a day, Pepcid 20 mg daily, prednisone 5 mg daily, Singulair 10 mg daily, Tapazole 5 mg daily, Tylenol p.r.n. basis. LABORATORY DATA: Reviewed. IMPRESSION AND PLAN: Cardiomyopathy with systolic and diastolic dysfunction, severe pulmonary hypert ension, chronic obstructive lung disease, obstructive sleep apnea syndrome, renal insufficiency, anem ia, degenerative joint disease. Continue bronchodilators, diuretics, afterload senior solutions consultant, physical the rapy, outpatient ____ study to qualify for CPAP. Also, awaiting for Letairis 5 mg daily. Thank you and will follow with you. Saira Gallardo MD cc: [id number] TT: 10/29/2016 22:53:59 Confirmation # [id number] Dictation # [id number] jn
[2016-10-30] MEDS: diltiaZEM 120 mg/24 Hours CD Cap PO SCH (10:41)
[2016-10-30] MEDS: methIMAzole 5 MG TAB PO SCH (10:45)
[2016-10-30 11:04] VITALS: O2SAT 98
[2016-10-30 12:16] LABS: BASO # 0.01 K/mm3 (0.0-2.0); BASO % 0.1 % (0.0-3.0); EOS # 0.1 (0.0-0.7); EOS % 1.1 % (1.5-5.0); GRAN % 80.1 % (50.0-68.0); HEMATOCRIT 34.6 % (36.0-48.0); LYMPH # 0.8 (1.2-3.4); LYMPH % 11.2 % (22.0-35.0); MEAN CELL VOLUME 95.8 fL (80.0-105.0); MEAN CORPUSCULAR HEMOGLOBIN 30.5 pg (25.0-35.0); MEAN CORPUSCULAR HGB CONC 31.8 g/dl (31.0-37.0); MEAN PLATELET VOLUME 10.6 fl (7.0-11.0); MONO # 0.6 (0.1-0.6); MONO % 7.5 % (1.0-6.0); PLATELET COUNT 185 10^3/uL (120.0-450.0); RED CELL DISTRIBUTION WIDTH 16.6 % (11.5-14.5); WHITE BLOOD COUNT 7.5 10^3/ul (4.5-11.0)
[2016-10-30 13:47] LABS: ALB/GLOB RATIO 0.9 (1.1-1.8); BILIRUBIN,TOTAL 1.3 mg/dL (0.2-1.3); CALCIUM 8.7 mg/dL (8.4-10.5); POTASSIUM 4.3 mmol/L (3.6-5.0); TOTAL PROTEIN 6.6 g/dL (5.8-8.3)
[2016-10-30] MEDS: Nystatin-Triamcinolone Cream(30 gm) TOP SCH ×2 (13:50→17:55)
[2016-10-30 16:39] VITALS: RESP 18; TEMP 99.3
--- NOTE | 2016-10-30 21:04 | PN ---
DATE: 10/30/2016 REFERRING PHYSICIAN: Dr. Luna. SUBJECTIVE: The patient is sitting up in a chair. Daughter and at bedside. Unremarkable ni ght. No headache, no rhinitis, doing well with therapy. Decreased shortness of breath. Still has l eg swelling. No nausea, no vomiting, no diarrhea. OBJECTIVE: GENERAL: No acute distress. VITAL SIGNS: Temp is 99, heart rate 62, respiratory rate is 20, blood pressure 140/67 and pulse ox 9 8% on 2 liters nasal cannula. HEENT: Moist mucous membranes. Crowded airway. Mallampati score is 4. NECK: Supple. No JVD. LUNGS: Has a few crackles. HEART: S1, S2. ABDOMEN: Soft, nontender. No organomegaly. EXTREMITIES: There is no edema. NEUROLOGIC: Awake, alert, follows simple commands. MEDICATIONS: She is on hydralazine 25 mg q.i.d., Cardizem-CD 120 mg daily, Coreg 3.125 mg twice a da y, Eliquis 2.5 mg twice a day, ferrous sulfate 324 mg daily, Lasix 40 mg twice a day, Pepcid 20 mg da sal, prednisone 5 mg daily, Singulair 10 mg daily, ____ 5 mg daily, Tylenol p.r.n. basis. LABORATORY DATA: Reviewed. No new lab is available. IMPRESSION AND PLAN: Cardiomyopathy with systolic and diastolic dysfunction, severe pulmonary hypert ension, chronic obstructive lung disease, obstructive sleep apnea syndrome, renal insufficiency, anem ia, degenerative joint disease. I spoke to patient's daughter at bedside. All the questions answered. Requested her to bring her ho ma medications, which include Adcirca and Letairis. In the past Adcirca and Letairis was not given _ ___ patient have a mix up in the medications so will readjust her medication once Letairis and Adcirc a from home is available. Also, need attended sleep study. Her home CPAP is not working and she can not use hospital CPAP because she is claustrophobic and likes to use nasal pillow mask. Thank you an d will follow with you. Saira Gallardo MD cc: [id number] TT: 10/30/2016 21:04:01 Confirmation # [id number] Dictation # [id number] jn
--- NOTE | 2016-10-30 21:25 | PN ---
DATE: 10/30/2016 REASON FOR CONSULTATION AND FOLLOWUP: Mitral valve repair of cardiomyopathy, paroxysmal atrial fibri llation. BRIEF CLINICAL HISTORY: A 70-year-old female with past medical history significant for obesity, diab etes, hypertension, hyperlipidemia, paroxysmal atrial fibrillation, renal insufficiency, status post AVR, bioprosthetic paroxysmal atrial fibrillation, nonischemic cardiomyopathy, admitted with decompen sated congestive heart failure. The patient was treated ____ in the transitional care unit for kadeem nuity of care. Denies any chest pain, shortness of breath, any palpitation. PHYSICAL EXAMINATION: VITAL SIGNS: Temperature afebrile, the heart rate 60, blood pressure 140/67. HEENT: PERRLA. Extraocular muscles intact. NECK: Supple. No carotid bruits. No thyromegaly. CHEST: Clear to auscultation. HEART: S1, S2 regular. ABDOMEN: Soft. EXTREMITIES: Clubbing and cyanosis negative. BLOOD WORKUP: As follows: WBC 7.5, hemoglobin 11, hematocrit 39.4, platelet count 185. Chemistry s hows sodium 130, potassium 4.3, chloride 92, carbon dioxide 39, anion gap of 11, BUN 17, creatinine 1 .3. IMPRESSION: Decompensated congestive heart failure, cardiomyopathy, nonischemic, status post MVR rep air, paroxysmal atrial fibrillation, obesity. RECOMMENDATION: Continue hydralazine, continue Cardizem, continue Eliquis, continue supplementation, continue Lasix. We will follow with you. History of hyperthyroidism on methimazole. Thank you Dr. Jack, for providing the opportunity in taking care of this patient. Saira Chicas MD cc: [id number] TT: 10/30/2016 21:24:23 Confirmation # [id number] Dictation # [id number] oren
--- NOTE | 2016-10-31 10:49 | PN ---
DATE: 10/30/2016 SUBJECTIVE: The patient was seen and examined on 10/30/16, looks comfortable. No nausea, vomiting, o r diarrhea. No hematuria, no hematochezia. Unremarkable night. No headache, no dizziness. Shortne ss of breath is better. No chest pain. Swelling of the leg is better. PHYSICAL EXAMINATION: VITAL SIGNS: Temperature 98.6, heart rate 62, respiratory rate 20, blood pressure 140/67, and pulse oximeter 98% on 2 L nasal cannula. HEENT: Head normocephalic, atraumatic. Eyes: PERRLA. Extraocular muscles intact. Conjunctivae cl ear. Nose patent. Mucous membranes moist. NECK: Supple. No carotid bruit, JVD or thyromegaly. CHEST: Bilaterally symmetrical. HEART: S1, S2 positive. LUNGS: Clear to auscultation. ABDOMEN: Soft. Bowel sounds present. No organomegaly. EXTREMITIES: No edema, no cyanosis. NEUROLOGIC: The patient is awake, alert and moving all 4 extremities. No focal deficit. MEDICATIONS: Hydralazine, Cardizem, Coreg, Eliquis, ferrous sulfate, Lasix, Pepcid, prednisone, Sing ulair, Tylenol. LABORATORY DATA: We do not have recent labs today, but I reviewed old labs. ASSESSMENT AND PLAN: The patient is a 70-year-old lady with multiple medical problems, hypothyroidis m, diabetes mellitus, cardiomyopathy with systolic and diastolic dysfunction, severe pulmonary hypert ension, chronic obstructive lung disease, obstructive sleep apnea syndrome, renal insufficiency, anem ia, degenerative joint disease, noncompliant with CPAP. I reviewed Dr. Gallardo's notes. He spoke to the patient's daughter. All questions answered. The patient is mixing up medications at home. Dr. Gallardo talked to the daughter about the medications. I reviewed the medications with the patient als o. Gastrointestinal and deep venous thrombosis prophylaxis. We will follow up. Sariah Luna MD cc: [id number] TT: 10/31/2016 10:48:03 Confirmation # [id number] Dictation # [id number] tn
[2016-10-31] MEDS: Nystatin-Triamcinolone Cream(30 gm) TOP SCH ×2 (10:55→17:21)
[2016-10-31] MEDS: methIMAzole 5 MG TAB PO SCH (10:56)
[2016-10-31] MEDS: diltiaZEM 120 mg/24 Hours CD Cap PO SCH (10:58)
[2016-10-31] MEDS ORDERED: Sod Polystyrene Sulf 15 gm/60 ml Oral Susp PO ONE (23:39)
--- NOTE | 2016-10-31 23:52 | PN ---
DATE: 10/31/2016 PULMONARY PROGRESS NOTE REFERRING PHYSICIAN: Dr. Luna. SUBJECTIVE: The patient out of bed to chair. Son is at bedside. Night was unremarkable, doing well in therapy. Breathing is better. No nausea, no vomiting, no diarrhea. Still has leg swelling. OBJECTIVE: GENERAL: No acute distress. VITAL SIGNS: Temperature is 98, heart rate is 68, respiratory rate is 20, blood pressure 135/ . HEENT: Moist mucous membranes. Crowded airway. NECK: Supple, no JVD. LUNGS: Have a fair airflow with few crackles. HEART: S1, S2. ABDOMEN: Soft, nontender. No organomegaly. EXTREMITIES: There is edema. NEUROLOGIC: Awake, alert, follows simple command. MEDICATIONS: She is on hydralazine 25 mg q.i.d., Cardizem-CD 120 mg daily, Coreg 3.125 mg twice a da y, Eliquis 2.5 mg twice a day, ferrous sulfate 324 mg daily, Lasix 40 mg twice a day, multivitamins d aily, Pepcid 20 mg daily, prednisone 5 mg daily, Singulair 10 mg daily, Toprol-XL 5 mg daily, Tylenol p.r.n., Ultram 50 mg q. 8 hours p.r.n. LABORATORY DATA: Shows no new lab is available. IMPRESSION AND PLAN: Cardiomyopathy with systolic and diastolic dysfunction, severe pulmonary hypert ension, chronic obstructive lung disease, chronic sleep apnea syndrome, renal insufficiency, anemia, degenerative joint disease. Pulmonary point of view, doing okay. I spoke to the patient's son at [facility]. The patient ran out , asked them to give call to the so we can get it back up and started while she is in the hospital. Readjust blood pressure medication. Also, her CPAP machine is not working. She will need outpatient sleep study. Continue diuretics, bronchodilator. Discontinu e prednisone. Thank you and will follow with you. Saira Gallardo MD cc: [id number] TT: 10/31/2016 23:51:48 Confirmation # [id number] Dictation # [id number] mn
--- NOTE | 2016-11-01 07:57 | PN ---
DATE: 10/31/2016 The patient is a 70-year-old female. The patient is seen and examined on the bedside. Son was sitti ng on the bedside also. Looks comfortable, complaining of pain in the left hand. No nausea, vomitin g, diarrhea. No hematuria, no hematochezia. No fever, no chills. PHYSICAL EXAMINATION: VITAL SIGNS: Temperature 98.6, pulse 63, blood pressure 123/54, respiratory rate 18. HEENT: Head normocephalic, atraumatic. Eyes: PERRLA. Extraocular muscles intact. Conjunctivae cl ear. Nose patent. NECK: Supple. No carotid bruit, no JVD, no thyromegaly. CHEST: Bilaterally symmetrical. HEART: S1, S2 positive. LUNGS: Clear to auscultation. ABDOMEN: Soft. Bowel sounds positive. No organomegaly. EXTREMITIES: No edema, no cyanosis, except that left hand is tender. NEUROLOGIC: The patient is awake, alert, moving all 4 extremities. No focal deficits. MEDICATIONS: Hydralazine, Cardizem, Coreg, Eliquis, iron, Lasix, triamcinolone, Pepcid, Singulair, T apazole, Tylenol, tramadol. LABORATORIES: White blood cells 7.5, hemoglobin 11.0, hematocrit 34.6, platelets 185. Sodium 138, p otassium 4.3, BUN 71, creatinine 1.3. ASSESSMENT AND PLAN: The patient is a 70-year-old lady with anemia, hyperkalemia, renal insufficienc y. Seen by waste management specialist and shoe sprayer. Cardiomyopathy with systolic and diastolic dysfunction, history of pulmonary hypertension, chronic obstructive lung disease, obstructive sleep apnea syndrome , degenerative joint disease, rule out gouty arthritis. Length of time discussion done with the tori ent and patient's son. Will give some naproxen because patient has history of gouty arthritis. Kaci rointestinal and deep venous thrombosis prophylaxis. Repeat labs. Will follow up. Saraih Luna MD cc: [id number] TT: 11/01/2016 07:56:44 Confirmation # [id number] Dictation # [id number] en
[2016-11-01 08:18] LABS: HEMATOCRIT 34.1 % (36.0-48.0); MEAN CELL VOLUME 94.5 fL (80.0-105.0); MEAN CORPUSCULAR HEMOGLOBIN 30.5 pg (25.0-35.0); MEAN CORPUSCULAR HGB CONC 32.3 g/dl (31.0-37.0); MEAN PLATELET VOLUME 10.3 fl (7.0-11.0); RED CELL DISTRIBUTION WIDTH 16.2 % (11.5-14.5); WHITE BLOOD COUNT 8.5 10^3/ul (4.5-11.0)
[2016-11-01 08:30] LABS: CALCIUM 9.2 mg/dL (8.4-10.5)
[2016-11-01] MEDS: methIMAzole 5 MG TAB PO SCH (11:00)
[2016-11-01] MEDS: Nystatin-Triamcinolone Cream(30 gm) TOP SCH ×2 (11:00→18:08)
[2016-11-01] MEDS: diltiaZEM 120 mg/24 Hours CD Cap PO SCH (11:00)
--- NOTE | 2016-11-01 15:38 | PN ---
DATE: 11/01/2016 REFERRING PHYSICIAN: Dr. Luna SUBJECTIVE: She is out of bed to chair. Night was unremarkable. Complaining about her hand arthrit is. No nausea, no vomiting, no diarrhea. Does have leg swelling. OBJECTIVE: GENERAL: No acute distress. VITAL SIGNS: Temp is 98, heart rate is 54, respiratory is 20, blood pressure 149/73. HEENT: Moist mucous membrane. Crowded airway. NECK: Supple. No JVD. LUNGS: Have a few scattered rhonchi. HEART: S1 and S2. ABDOMEN: Soft, nontender. No organomegaly. EXTREMITIES: Has edema of both hands, tender to touch. NEUROLOGIC: Awake, alert, follows simple command. MEDICATIONS: She is on hydralazine 25 mg q.i.d., Cardizem-CD 120 mg daily, Coreg 3.125 mg twice a da y, Eliquis 2.5 mg twice a day, ferrous sulfate 324 mg daily, Indocin 2.5 mg 3 times a day, Lasix 40 m g twice a day, Pepcid 20 mg daily, Singulair 10 mg daily, Tapazole 5 mg daily, Tylenol p.r.n., Ultram 50 mg twice a day p.r.n. LABORATORY DATA: Shows hemoglobin ____, hematocrit 34.1, WBC 8.5, platelet is 180. Sodium 136, pota ssium 4.0, chloride 93, bicarbonate 34, BUN 67, creatinine 1.4, glucose 144, calcium is 9.2. AST 61, ALT 34, alk phos is 134. IMPRESSION AND PLAN: Cardiomyopathy with systolic and diastolic dysfunction, severe pulmonary hypert ension, chronic obstructive lung disease, sleep apnea syndrome, renal insufficiency, anemia, degenera tive joint disease, has severe arthritis, on nonsteroidal. Need to watch closely for the renal funct ion. If ____ does not get better, may have to re-add prednisone about 5 mg daily. Sleep apnea preca ution. Continue therapy. Thank you and we will follow with you. Saira Gallardo MD cc: [id number] TT: 11/01/2016 15:37:34 Confirmation # [id number] Dictation # [id number] sn
[2016-11-02] MEDS: diltiaZEM 120 mg/24 Hours CD Cap PO SCH (09:20)
[2016-11-02] MEDS: methIMAzole 5 MG TAB PO SCH (09:21)
[2016-11-02] MEDS: Nystatin-Triamcinolone Cream(30 gm) TOP SCH (09:22)
[2016-11-02 14:06] VITALS: BP 147/61; PULSE 53
--- NOTE | 2016-11-02 17:14 | PN ---
DATE: 11/02/2016 REASON FOR CONSULTATION AND FOLLOWUP: Mitral valve repair, cardiomyopathy, paroxysmal atrial fibrill ation, decompensated congestive heart failure, deconditioning of the body, continuity of the care in transitional care unit. BRIEF CLINICAL HISTORY: This is a 70-year-old female with a past medical history significant for obe sity, diabetes, hypertension, hyperlipidemia, paroxysmal atrial fibrillation, renal failure, status p ost MVR (mitral valve repair)/bioprosthetic, paroxysmal atrial fibrillation, nonischemic cardiomyopa thy, admitted with decompensated congestive heart failure the patient was treated for. Now, patient is in transitional care for the continuity of care. Denies any chest pain, shortness of breath, any palpitation. PHYSICAL EXAMINATION: VITAL SIGNS: Temperature afebrile, heart rate 53, blood pressure 147/61. HEENT: PERRLA. Extraocular muscles intact. NECK: Supple. No carotid bruits or thyromegaly. CHEST: Clear to auscultation. HEART: S1, S2 regular. ABDOMEN: Soft. EXTREMITIES: Clubbing and cyanosis negative. LABORATORY DATA: WBC 8.5, hemoglobin 11, hematocrit 34.1, platelet count 180. Chemistry shows sodiu m 130, potassium 4, chloride 93, carbon dioxide 34, anion gap of 13, BUN 67, creatinine 1.4. IMPRESSION: Paroxysmal atrial fibrillation; cardiomyopathy, nonischemic, status post mitral valve re pair; nonischemic cardiomyopathy, mitral valve repair, paroxysmal atrial fibrillation, obesity. RECOMMENDATION: Continue hydralazine. Avoid nephrotoxic medication. Continue hydralazine, continue Cardizem, continue Eliquis. Continue supplementation of the Lasix. Will continue dose adjusted Maritza clarence 2.5, renally dose adjusted. Will follow with you. Follow up LV evaluation in 3-6 months and if remains low, consider AICD. The patient was sent to Dr. Hernandez for AICD evaluation but his first time, so needs to reevaluate LV in 3-6 months. If it remains low, consider AICD. Discussed with the patient. Discussed with the family. Saira Chicas MD cc: [id number] TT: 11/02/2016 17:13:49 Confirmation # [id number] Dictation # [id number] mn
--- NOTE | 2016-11-09 18:51 | DS ---
CHIEF COMPLAINT: Shortness of breath, leg pain, fatigue, tired. HISTORY OF PRESENT ILLNESS: The patient is a 70-year-old lady with multiple medical problems of COPD, hypertension, hypercholesterolemia, pulmonary hypertension, paroxysmal atrial fibrillation, renal insufficiency. Was admitted on acute side for shortness of breath, generalized weakness, increased swelling of the legs. Cardiology consult called. Pulmonary consult called. The patient got better, transferred to TCU. In TCU, patient got rehab, physical therapy and had attack of gouty arthritis. Got treatment, better. Sent home with prescriptions. Follow up with primary care physician and scheme technician and speeder tender. PAST MEDICAL HISTORY: Significant for chronic renal insufficiency status post dialysis on the last admission, history of decompensated congestive heart failure, multiple times cardiomyopathy, mitral regurgitation, history of MVR, obstructive sleep apnea syndrome and COPD. MEDICATIONS: Reviewed by me. ALLERGIES: The patient is not allergic with any medication. FAMILY HISTORY: Father and mother noncontributory. HABITS: Never smoked, no drugs, no ethanol. REVIEW OF SYSTEMS: The patient was seen and examined on the bedside. Looks comfortable. No nausea, vomiting, diarrhea. No hematuria or hematochezia. No swelling of the leg. No chest pain, no palpitation, no headache, no dizziness. Feeling better. PHYSICAL EXAMINATION: VITAL SIGNS: Temperature 98.6, pulse 53, blood pressure 147/80 , respiratory rate 18. HEENT: Head normocephalic, atraumatic. Eyes PERRLA. Extraocular muscles intact. Conjunctivae clear. Nose patent. Mucous membranes moist. NECK: Supple. No carotid bruits, JVD, thyromegaly. CHEST: Bilaterally symmetrical. HEART: S1, S2 positive. LUNGS: Clear to auscultation. ABDOMEN: Soft. Bowel sounds positive. No organomegaly. EXTREMITIES: No edema, no cyanosis. NEUROLOGIC: The patient awake, alert, moving all 4 extremities. No focal deficit. LABORATORY DATA: White blood cells 8.5, hemoglobin 11, hematocrit 34.1, platelets 180. Sodium 130, potassium 4, chloride 93, BUN 67, creatinine 1.7. ASSESSMENT AND PLAN: The patient is a 70-year-old lady with paroxysmal atrial fibrillation, cardiomyopathy, pulmonary hypertension, nonischemic; congestive heart failure status post mitral valve repair, paroxysmal atrial fibrillation, obesity, chronic obstructive pulmonary disease, hypothyroidism, diabetes mellitus, gouty arthritis. Got rehab, did better. Gouty arthritis better. Continue hydralazine. Avoid nephrotoxic medication. The patient has borderline renal insufficiency. Continue Cardizem, Eliquis for atrial fibrillation. Continue supplemental of Lasix. We will continue adjustment of Eliquis. Gastrointestinal, deep venous thrombosis prophylaxis. Discharged home. If medicine will not work, consider automatic implanted cardiac defibrillator per Dr. Chicas. We will follow up. Sariah Luna MD cc: [id number] TT: 11/09/2016 18:50:18 sn MTDD
== END 2016-11-02 16:23 | disposition home or self-care (01) | DRG 291 ==
LOC: TRCU 15:07
PROVIDERS: ADMIT Internal Medicine; ATTEND Internal Medicine
PROC: F07Z9FZ Gait Training/Functional Ambulation Treatment using Assistive, Adaptive, Supportive or Protective Equipment (ICD-10-PCS; principal; 2016-10-27)
PROC: F07L6FZ Therapeutic Exercise Treatment of Musculoskeletal System - Lower Back / Lower Extremity using Assistive, Adaptive, Supportive or Protective Equipment (ICD-10-PCS; 2016-10-27)
PROC: F08Z2ZZ Grooming/Personal Hygiene Treatment (ICD-10-PCS; 2016-10-27)
DX: I13.0 Hypertensive heart and chronic kidney disease with heart failure and stage 1 through stage 4 chronic kidney disease, or unspecified chronic kidney disease (principal); I50.23 Acute on chronic systolic (congestive) heart failure; E11.22 Type 2 diabetes mellitus with diabetic chronic kidney disease; I42.9 Cardiomyopathy, unspecified; I27.2 Other secondary pulmonary hypertension; I48.0 Paroxysmal atrial fibrillation; J44.9 Chronic obstructive pulmonary disease, unspecified; E87.5 Hyperkalemia; E78.5 Hyperlipidemia, unspecified; M19.90 Unspecified osteoarthritis, unspecified site; N18.9 Chronic kidney disease, unspecified; G47.33 Obstructive sleep apnea (adult) (pediatric); D50.9 Iron deficiency anemia, unspecified; I25.10 Atherosclerotic heart disease of native coronary artery without angina pectoris; I34.0 Nonrheumatic mitral (valve) insufficiency; E05.90 Thyrotoxicosis, unspecified without thyrotoxic crisis or storm; E78.00 Pure hypercholesterolemia, unspecified; M10.00 Idiopathic gout, unspecified site; Z95.3 Presence of xenogenic heart valve; Z79.01 Long term (current) use of anticoagulants

== ENCOUNTER 2016-12-07 08:44 | Inpatient (IN) | payer MEDICARE, OTHER ==
[2016-12-07 08:45] VITALS: PULSE 71
--- NOTE | 2016-12-07 09:30 | ED PDOC ---
Arrival/HPI - General Chief Complaint: Lower Extremity Problem/Injury Time Seen by Provider: 12/07/16 09:03 Historian: Patient - History of Present Illness Narrative History of Present Illness (Text): 12/07/16 09:26 70yr old female presents today with weakness and difficulty with ambulation which started last night. Also last night the patient was having difficulty/ pain with urination. Today patient's son states that the patient feels warm and she hasn't been able to get up and walk around as much as she has been doing. The patient denies chest pain or shortness of breath. Son states occasionally the patient has a cough with mucus production. Patient denies abdominal pain. Denies back pain. Patient has swelling in both hands for which she states is from her gout. Patient with a history of CHF and atrial fibrillation. No vomiting or diarrhea. No dizziness. No headaches. No other complaints Time/Duration: Other (1 day) Symptom Course: Worsening Past Medical History - Provider Review Nursing Documentation Reviewed: Yes - Travel History Have you recently traveled outside [place] w/in the past 3 mons?: No - Infectious Disease Hx of Infectious Diseases: None - Tetanus Immunization Tetanus Immunization: Unknown - Reproductive Menopause: Yes - Past Medical History Past Medical History: Non-Contributing - Cardiac Hx Cardiac Disorders: Yes (Afib, CAD, Cardiomyopathy, MVR) Hx Congestive Heart Failure: Yes Hx Hypertension: Yes (and Pulmo HTN) Other/Comment: mitral valve replacement. - Pulmonary Hx Respiratory Disorders: Yes Hx Chronic Obstructive Pulmonary Disease (COPD): Yes - Neurological Hx Neurological Disorder: No - HEENT Hx HEENT Disorder: Yes Other/Comment: wears glasses - Renal Hx Renal Disorder: Yes Hx Renal Failure: Yes (not on hemodialysis) Other/Comment: pt was on dialysis for one week after CHF diagnosis - Endocrine/Metabolic Hx Endocrine Disorders: Yes Hx Diabetes Mellitus Type 2: Yes Hx Hypothyroidism: Yes - Hematological/Oncological Hx Blood Disorders: No - Integumentary Hx Dermatological Disorder: Yes Other/Comment: gout - Musculoskeletal/Rheumatological Hx Falls: No Hx Gout: Yes - Gastrointestinal Hx Gastroesophageal Reflux: Yes Other/Comment: umbilical hernia - Genitourinary/Gynecological Hx Genitourinary Disorders: No - Psychiatric Hx Psychophysiologic Disorder: No Hx Substance Use: No - Past Surgical History Past Surgical History: Non-Contributing - Surgical History Other/Comment: MV r/p, varicose veins b/l legs - Anesthesia Hx Anesthesia: Yes Hx Anesthesia Reactions: No Hx Malignant Hyperthermia: No - Suicidal Assessment Feels Threatened In Home Enviroment: No Family/Social History - Physician Review Nursing Documentation Reviewed: Yes Family/Social History: Unknown Family HX Smoking Status: Never Smoked Hx Alcohol Use: No Hx Substance Use: No Hx Substance Use Treatment: No Allergies/Home Meds Allergies/Adverse Reactions: Allergies No Known Allergies Allergy (Verified 12/07/16 09:06) Home Medications: Home Meds Medication Instructions Recorded Confirmed Famotidine [Pepcid] 20 mg PO DAILY 07/10/16 12/07/16 Ferrous Sulfate [Iron] 325 mg PO DAILY 07/10/16 12/07/16 Furosemide [Lasix] 40 mg PO BID 07/10/16 12/07/16 Spironolactone [Aldactone] 25 mg PO DAILY 07/10/16 12/07/16 Apixaban [Eliquis] 2.5 mg PO BID 10/20/16 12/07/16 hydrALAZINE [Apresoline] 10 mg PO QID 10/25/16 12/07/16 Colchicine [Colcrys] 0.6 mg PO DAILY 12/07/16 12/07/16 Diltiazem HCl [Cartia Xt] 120 mg PO DAILY 12/07/16 12/07/16 Gabapentin [Neurontin] 1 tab PO DAILY 12/07/16 12/07/16 Sulfamethoxazole/Trimethoprim 1 tab PO DAILY 12/07/16 12/07/16 [Bactrim 400-80 mg Tablet] Tadalafil [Adcirca] 20 mg PO DAILY 12/07/16 12/07/16 Review of Systems - Review of Systems Constitutional: Fevers ENT: absent: Sore Throat, Sinus Congestion Respiratory: Cough. absent: SOB Cardiovascular: absent: Chest Pain, Palpitations Gastrointestinal: absent: Abdominal Pain, Diarrhea, Nausea, Vomiting Genitourinary Female: Dysuria Musculoskeletal: Arthralgias, Other (b/l leg pain). absent: Back Pain Neurological: absent: Headache Physical Exam Vital Signs Reviewed: Yes Vital Signs Temp Pulse Resp BP Pulse Ox 12/07/16 11:44 89 18 101/54 L 97 12/07/16 09:14 100.4 F H 76 19 131/94 H 95 Temperature: Febrile Blood Pressure: Normal Pulse: Regular Respiratory Rate: Normal Appearance: Positive for: Well-Appearing, Non-Toxic, Comfortable Pain Distress: None Mental Status: Positive for: Alert and Oriented X 3 - Systems Exam Head: Present: Atraumatic Mouth: Present: Moist Mucous Membranes Respiratory/Chest: Present: Rales (slight rales noted at the bases bilaterally) . No: Respiratory Distress, Accessory Muscle Use, Tachypneic Abdomen: No: Tenderness, Distention, Rebound, Guarding Back: No: CVA Tenderness, Midline Tenderness, Paraspinal Tenderness Upper Extremity: Present: Swelling (+ bilateral swelling of the hands) Lower Extremity: Present: Edema (b/l lower leg edema), Swelling (+ b/l knee swelling, left greater than right.). No: CALF TENDERNESS Neurological: Present: GCS=15, Speech Normal Skin: Present: Warm, Dry, Normal Color Psychiatric: Present: Alert, Oriented x 3 Medical Decision Making ED Course and Treatment: 12/07/16 09:32 70yr old female with generalized weakness. low grade fever in er. tylenol given po cbc wnl cmp: bun 145/ cr 3.2 trop: 0.14 bnp: [id number] ekg; sinus rhythm with PVCs at [address] elevations cxr: + cardiomegaly and mild vascular congestion UA: + moderate leukocytes, 2-5wbc, 10-12 epithelial cells. blood and urine cultures pending case discussed with dr. luna; dr. palafox consult. Dr. Luna will order Rocephin IV. dr. luna and dr. palafox saw patient at bedside; case discussed in depth. dr. palafox advised gentle hydration of 1/2NS at 40cc/hr. Renal US. requesting add uric acid. and ortho consult. case discussed with dr. leigh who saw patient at bedside. impression; acute renal failure admit to tele. - Lab Interpretations Lab Results: 12/07/16 09:37 12/07/16 09:37 Lab Results 12/07/16 10:05: Urine Color Yellow, Urine Appearance Clear, Urine pH 6.0, Ur Specific [place] 1.010, Urine Protein Negative, Urine Glucose (UA) Negative, Urine Ketones Negative, Urine Blood Trace-lysed H, Urine Nitrate Negative, Urine Bilirubin Negative, Urine Urobilinogen 0.2, Ur Leukocyte Esterase Moderate H, Urine RBC 0 - 2, Urine WBC 2 - 5, Ur Epithelial Cells 10 - 12, Urine Bacteria Trace 12/07/16 09:37: WBC 9.6, RBC 3.19 L, Hgb 9.4 L, Hct 28.6 L, MCV 89.7, MCH 29.5, MCHC 32.9, RDW 15.2 H, Plt Count 148, MPV 9.6, Gran % 85.6 H, Lymph % (Auto) 4.0 L, [place] % (Auto) 9.3 H, Eos % (Auto) 1.0 L, Baso % (Auto) 0.1, Gran # 8.18 H , Lymph # 0.4 L, [place] # 0.9 H, Eos # 0.1, Baso # 0.01 12/07/16 09:37: Sodium 134, Potassium 4.5, Chloride 102, Carbon Dioxide 18 L, Anion Gap 19, BUN 145 H*, Creatinine 3.2 H, Est GFR ( Amer) 17, Est GFR ( Non-Af Amer) 14, Random Glucose 101, Calcium 9.2, Total Bilirubin 1.1, AST 37, ALT 26, Alkaline Phosphatase 248 H, Lactate Dehydrogenase 401, Total Creatine Kinase 37, Troponin I 0.14 H* D, NT-Pro-B Natriuret Pep 27991 H, Total Protein 7.2, Albumin 3.6, Globulin 3.5, Albumin/Globulin Ratio 1.0 L - RAD Interpretation Radiology Orders: 12/07/16 09:11 CHEST PORTABLE [RAD] Stat 12/07/16 11:02 RENAL [US] Stat - Medication Orders Current Medication Orders: Apixaban (Eliquis) 2.5 mg PO BID [facility] PRN Reason: Protocol Famotidine (Pepcid) 20 mg PO DAILY [facility] Ferrous Sulfate (Feosol) 324 mg PO DAILY [facility] Sodium Chloride (Sodium Chloride 0.45%) 500 mls @ 40 mls/hr IV .[id number] ONE Stop: 12/08/16 00:33 Last Admin: 12/07/16 12:25 Dose: 40 mls/hr Ceftriaxone Sodium (Rocephin 1 Gram Ivpb) 1 gm in 100 mls @ 100 mls/hr IVPB DAILY [facility] PRN Reason: Protocol Insulin Human Regular (Humulin R Low) 0 units SC ACHS [facility] PRN Reason: Protocol Methimazole (Tapazole) 5 mg PO DAILY [facility] Montelukast Sodium (Singulair) 10 mg PO HS [facility] Tadalafil [Adcirca] (20 Mg) 20 mg PO DAILY [facility] Discontinued Medications Acetaminophen (Tylenol 325mg Tab) 975 mg PO STAT [facility] Stop: 12/07/16 09:34 Last Admin: 12/07/16 09:44 Dose: 975 mg Disposition/Present on Arrival - Present on Arrival Any Indicators Present on Arrival: Yes History of DVT/PE: No History of Uncontrolled Diabetes: Yes Urinary Catheter: Yes History of Decub. Ulcer: No History Surgical Site Infection Following: None - Disposition Have Diagnosis and Disposition been Completed?: Yes Diagnosis: Acute renal failure Disposition: HOSPITALIZED Disposition Time: 11:00 Patient Plan: Admission Patient Problems: Current Active Problems Problem Status Onset Acute renal failure Acute Condition: FAIR
[2016-12-07 09:47] LABS: ADD MANUAL DIFF? NO
--- NOTE | 2016-12-07 09:50 | RAD ---
HISTORY: weakness COMPARISON: 10/20/2016 FINDINGS: LUNGS: No active pulmonary disease. PLEURA: No significant pleural effusion identified, no pneumothorax apparent. CARDIOVASCULAR: Moderate cardiomegaly and mild vascular congestion OSSEOUS STRUCTURES: No significant abnormalities. VISUALIZED UPPER ABDOMEN: Normal. OTHER FINDINGS: None. IMPRESSION: Moderate cardiomegaly and mild vascular congestion
[2016-12-07 09:58] LABS: BASO # 0.01 K/mm3 (0.0-2.0); BASO % 0.1 % (0.0-3.0); EOS # 0.1 (0.0-0.7); GRAN # 8.18 (1.4-6.5); GRAN % 85.6 % (50.0-68.0); HEMATOCRIT 28.6 % (36.0-48.0); LYMPH # 0.4 (1.2-3.4); MEAN CELL VOLUME 89.7 fL (80.0-105.0); MEAN CORPUSCULAR HEMOGLOBIN 29.5 pg (25.0-35.0); MEAN CORPUSCULAR HGB CONC 32.9 g/dl (31.0-37.0); MEAN PLATELET VOLUME 9.6 fl (7.0-11.0); MONO # 0.9 (0.1-0.6); MONO % 9.3 % (1.0-6.0); PLATELET COUNT 148 10^3/uL (120.0-450.0); RED CELL DISTRIBUTION WIDTH 15.2 % (11.5-14.5); WHITE BLOOD COUNT 9.6 10^3/ul (4.5-11.0)
[2016-12-07 10:04] LABS: BILIRUBIN,TOTAL 1.1 mg/dL (0.2-1.3); CALCIUM 9.2 mg/dL (8.4-10.5); POTASSIUM 4.5 mmol/L (3.6-5.0); TOTAL PROTEIN 7.2 g/dL (5.8-8.3)
[2016-12-07 10:15] LABS: URINE BILIRUBIN NEGATIVE (NEGATIVE); URINE BLOOD TRACE-LYSED (NEGATIVE); URINE GLUCOSE (UA) NEGATIVE (NEGATIVE); URINE KETONE NEGATIVE (NEGATIVE); URINE LEUKOCYTE ESTERASE MODERATE Leu/uL (NEGATIVE); URINE PROTEIN NEGATIVE mg/dL (<30 mg/dL); URINE UROBILINOGEN 0.2 E.U./dL (<1 E.U./dL)
[2016-12-07 10:17] LABS: URINE APPEARANCE CLEAR (CLEAR); URINE COLOR YELLOW (YELLOW)
[2016-12-07 10:28] LABS: URINE BACTERIA TRACE (NEG); URINE RBC 0 - 2 /hpf (0-2)
[2016-12-07 10:35] LABS: TROPONIN I 0.14 ng/mL
[2016-12-07] MEDS ORDERED: Sodium Chloride 0.45% 500 ML IV ONE (12:04)
--- NOTE | 2016-12-07 13:45 | US ---
PROCEDURE: Ultrasound of the Kidneys HISTORY: acute renal failure COMPARISON: None available. TECHNIQUE: Sonogram of the kidneys. FINDINGS: RIGHT KIDNEY: Measures: 10.8 x 4.1 x 3.9 cm. Normal in size, contour and echogenicity. No stone, solid mass lesion or hydronephrosis visualized. There is a small 1.4 cm cyst in the upper pole. LEFT KIDNEY: Measures: 11.8 x 4.3 x 3.9 cm. Normal in size, contour and echogenicity. 6 mm stone in the right kidney. No hydronephrosis OTHER FINDINGS: None. IMPRESSION: Unremarkable renal sonogram.
[2016-12-07 14:36] VITALS: BMI 26.5
--- NOTE | 2016-12-07 16:50 | CARD ---
APPROVED REPORT EKG Measurement Heart [id number] [id number] <Conclusion> Sinus rhythm with frequent and consecutive premature ventricular complexes and fusion complexes Left ventricular hypertrophy with repolarization abnormality Abnormal ECG
[2016-12-07] MEDS: Insulin Reg-LOW-Coverage SC SCH ×2 (17:19→22:06)
[2016-12-07] MEDS ORDERED: DOBUTamine 500mg/250ml D5W 500 MG/250 ML BAG IV PRN (17:37)
[2016-12-07] MEDS: methIMAzole 5 MG TAB PO SCH (17:54)
--- NOTE | 2016-12-07 18:21 | CON ---
DATE: 12/07/2016 LOCATION: The patient seen in room 271, bed 1. CHIEF COMPLAINT: Fever of 100.4 x 1 day. HISTORY OF PRESENT ILLNESS: This is a 70-year-old female with a history of congestive heart failure, cardiomyopathy with low ejection fraction of 34% and coronary artery disease, obstructive sleep apne a, chronic obstructive lung disease, pulmonary hypertension, diabetes mellitus, gout, hypothyroidism, history of mitral valve repair with coronary artery bypass graft, who has no known allergies, who wa s admitted with a diagnosis of congestive heart failure and acute renal failure. Infectious disease consultation requested because the patient had a temperature of 100.4. REVIEW OF SYSTEMS: Reveals the patient has mild shortness of breath, cough that is nonproductive. N o chest pain at this time and she also is complaining of lower extremity edema. Has no headaches or b lurred vision. No abdominal pain, diarrhea or constipation. No bright red blood per rectum. PAST MEDICAL HISTORY: Significant for congestive heart failure and cardiomyopathy, obstructive slee p apnea, coronary artery disease, chronic obstructive lung disease, pulmonary hypertension, diabetes mellitus, hypothyroidism, gout. PAST SURGICAL HISTORY: Significant for mitral valve repair, coronary artery bypass graft. ALLERGIES: The patient has no known allergies. MEDICATIONS AT HOME Reveals the patient to be on Cardia, , spironolactone, Tapazole, Lasix, Pe pcid, Eliquis and Neurontin. PHYSICAL EXAMINATION: GENERAL: The patient is in bed with a temperature of 98, T-max is 100.4, respiratory rate of 20, hea rt rate of 90. Blood pressure is 100/50. NECK: Supple. LUNGS: Have some bibasilar crackles. HEART: Normal S1, S2. ABDOMEN: Soft, nontender. CHEST: On examination of right-sided chest wall, in the vicinity of the right breast, there is a smal l abscess, approximately the size of a quarter, fluctuant, and no discharge. EXTREMITIES: Examination of lower extremity reveals the patient has edema. LABORATORY EXAMINATION: Reveals the patient to have a white count of 9.6, hemoglobin of 9, platelets of 148. BUN of 145, creatinine is 3.2. The patient's creatinine on the last admission was 1.4 and BUN of 145 and troponin is 0.14. Urinalysis is noted. Microbiology is noted. Chest x-ray is negati ve. EKG is noted. ASSESSMENT AND PLAN: This is a 70-year-old female with congestive heart failure, cardiomyopathy, obs tructive sleep apnea, coronary artery disease, chronic obstructive lung disease, pulmonary hypertensi on, diabetes, hypothyroidism, gout and with a fever of 100.4 and right chest wall abscess with acute renal failure, creatinine is changed from 1.4 on last admission to 3.2, presenting with acute systoli c reduced ejection fraction, congestive heart failure on top of chronic congestive heart failure. We will treat the patient with Teflaro and check on the blood cultures, urine cultures, and methicillin -resistant staphylococcus aureus screen and order a procalcitonin since the chest x-ray is reported t o be negative and we will discontinue ceftriaxone and surgical consultation for drainage of the abscess. We will follow closely with you. Rupesh Mcconnell MD cc: [id number] TT: 12/07/2016 18:20:27 Confirmation # [id number] Dictation # [id number]
[2016-12-07 21:54] LABS: URIC ACID 15.4 mg/dL (2.5-6.2)
--- NOTE | 2016-12-07 22:06 | CON ---
DATE: 12/07/2016 REASON FOR CONSULTATION: Acute kidney injury, fatigue, weakness. HISTORY OF PRESENTING ILLNESS: A 70-year-old lady brought to the Emergency Room by family members be cause of complaints of fatigue, weakness, inability to walk, inability to move. As per the son, the patient has a history of chronic obstructive pulmonary disease, hypertension, hyperlipidemia, chronic kidney disease stage III, pulmonary hypertension, paroxysmal atrial fibrillation, lower extremity ed dariela, gout. She was recently seen by PMD because of shortness of breath. Her Lasix was increased to 40 mg b.i.d., Aldactone was added. Also, she was started on Bactrim for urinary tract infection. The patient gives a history of weakness and inability to move, which has been progressive for the las t 2-3 days. The patient does have shortness of breath. She denies any chest pain. She denies any p alpitations. She denies any abdominal pain, nausea, vomiting, diarrhea, constipation. She denies an y urinary complaints. She complains of severe pain in her left knee, hands. In the Emergency Room, she was found to have a blood pressure 131/94, heart rate of 76, temperature 1 00.4. Her blood work shows BUN of 145 and a creatinine of 3.2. As per PMD, her creatinine was 1.4 t wo weeks ago. PAST MEDICAL AND SURGICAL HISTORY: Hypertension, congestive heart failure, paroxysmal atrial fibrill ation, COPD, gout, chronic kidney disease stage III/IV, hyperlipidemia, anemia, urinary tract infecti on. FAMILY HISTORY: Noncontributory. SOCIAL HISTORY: No smoking, no alcohol use, no IV drug abuse. ALLERGIES: No known drug allergies. MEDICATIONS AT HOME: 20 mg daily, Bactrim, Cardizem 120 mg daily, hydralazine 10 q.i.d., Aldac tone 25 daily, Singulair, Tapazole 5 mg daily, Lasix 40 b.i.d., iron 325 daily, Pepcid, Eliquis, Neur ontin, . REVIEW OF SYSTEMS: All systems are reviewed, pertinent positives as mentioned in the history of pres enting illness, rest unremarkable. PHYSICAL EXAMINATION: GENERAL: Elderly lady lying in bed. VITAL SIGNS: Blood pressure 134/81, heart rate 104, respiratory rate 18, temperature 100.4. HEENT: Normocephalic, atraumatic, positive pallor. NECK: Supple, no JVD. LUNGS: Bilateral rhonchi, distant breath sounds, scattered wheeze, minimal rales. CARDIAC: S1, S2, regular rate and rhythm, positive murmur, no rub. ABDOMEN: Soft, nondistended, nontender. Bowel sounds present. EXTREMITIES: Chronic stasis changes, hyperpigmentation of the skin of the lower legs, dry skin, swel ling of the left knee greater than the right, tenderness of the left knee, swelling of the small join ts of the hands, swelling of the dorsum of the hands. LABORATORY DATA: Urinalysis: Yellow, clear, pH 6.0, specific gravity 1.010, protein negative, keton es negative, blood trace lysed, leukocyte esterase moderate. Sodium 134, potassium 4.5, chloride 102 , CO2 of 18, BUN 145, creatinine 3.2, glucose 101, calcium 9.2, AST 37, ALT 26. Troponin 0.14, album in 3.6. WBC 9.6, hemoglobin 9.4, hematocrit 28.6, platelets 148. Renal ultrasound: Right kidney 10.8, left kidney 11.8, a 6 mm stone in the left kidney. No hydronep hrosis. CURRENT MEDICATIONS: , dobutamine, Eliquis, Feosol, insulin, Pepcid, Singulair, half normal derrek ine at 40, Adcirca, Tapazole. ASSESSMENT AND PLAN: A 70-year-old lady with history of [id number] diabetes mellitus, hyp ertension, hyperlipidemia, paroxysmal atrial fibrillation, chronic kidney disease stage III/IV, histo ry of acute kidney injury in the past, history of gout, congestive heart failure, pulmonary hypertens ion is presenting with complaints of weakness, fatigue. She is found to have acute kidney injury sup erimposed on her chronic kidney disease stage IV. The patient was recently seen in the PMD's office because of shortness of breath. Her diuretics were increased. She is on Lasix 40 b.i.d., Aldactone 25 daily. Also, she was found to have UTI and was started on Bactrim. At this time, she has: 1. Acute kidney injury superimposed on her chronic kidney disease stage IV. 2. Low grade fever. 3. ? Acute gout. 4. Non-insulin dependent diabetes mellitus. 5. Hypertension. 6. Pulmonary hypertension. 7. Anemia of chronic disease. PLAN: 1. The patient does not have any uremic signs or symptoms at this time, no indication for acute dial ysis. Suspect her acute kidney injury is multifactorial. Prerenal azotemia plus nephrotoxin plus [place] I plus ? gout. 2. Hold diuretics. 3. Cautious hydration. 4. [place] culture. 5. Check uric acid levels. 6. Monitor urine output closely. 7. Monitor daily electrolytes. 8. May require renal replacement therapy. Thank you for the courtesy of this consultation. We will follow this patient closely with you. Annetta Hammer MD cc: [phone] TT: 12/07/2016 22:04:54 Confirmation # [id number] Dictation # [id number] mn
--- NOTE | 2016-12-08 02:39 | CP.PCM.PN ---
Subjective - Date & Time of Evaluation Date of Evaluation: 12/08/16 Time of Evaluation: 02:36 - Subjective Subjective: Nurse calls and gives following information. Asymptomatic. Monitor changes into and out of afib to NSR. On dobutamine. Rx, observation. Later on, 04:40 RVR 150-160, afib for > 15 minutes.Asymptomatic. Patient was seen at bedside. Offers no complaints. Rx, Cardizem 20 mg iv now. 70 year old woman admitted weakness , difficulty in waking, dysuria,ARF. Has PMH of atrial fibrillation, CAD,CMP,anemia, MVR,COPD, DM II, pulmonary Hypertension,hypothyroidism, gout,CKD, umbilical hernia. Objective - Vital Signs/Intake and Output Vital Signs (last 24 hours): Temp Pulse Resp BP Pulse Ox 98.0 F 92 H 20 126/71 97 12/08/16 00:00 12/08/16 00:00 12/08/16 00:00 12/08/16 00:00 12/07/16 11:44 Intake and Output: 12/07/16 12/08/16 18:59 06:59 Intake Total 420 Output Total 750 Balance -330 - Medications Medications: Current Medications Apixaban (Eliquis) 2.5 mg PO BID [facility] PRN Reason: Protocol Last Admin: 12/07/16 17:54 Dose: 2.5 mg Famotidine (Pepcid) 20 mg PO DAILY [facility] Last Admin: 12/07/16 17:54 Dose: 20 mg Ferrous Sulfate (Feosol) 324 mg PO DAILY [facility] Dobutamine HCl/Dextrose (Dobutamine/Dextrose 5% 500mg/250ml) 500 mg in 250 mls @ 4.933 mls/hr IV .Q24H PRN; Protocol; 2.5 MCG/KG/MIN PRN Reason: TITRATE PER PROTOCOL Last Admin: 12/07/16 18:22 Dose: 4.933 mls/hr Ceftaroline Fosamil 200 mg/ (Sodium Chloride) 50 mls @ 50 mls/hr IVPB Q12H [facility] PRN Reason: Protocol Stop: 12/15/16 17:46 Last Admin: 12/07/16 18:59 Dose: 50 mls/hr Insulin Human Regular (Humulin R Low) 0 units SC ACHS [facility] PRN Reason: Protocol Last Admin: 12/07/16 22:06 Dose: Not Given Methimazole (Tapazole) 5 mg PO DAILY [facility] Last Admin: 12/07/16 17:54 Dose: 5 mg Montelukast Sodium (Singulair) 10 mg PO HS [facility] Last Admin: 12/07/16 22:15 Dose: 10 mg Tadalafil [Adcirca] (20 Mg) 20 mg PO DAILY [facility] - Constitutional Appears: Well, No Acute Distress - Head Exam Head Exam: ATRAUMATIC, NORMAL INSPECTION, NORMOCEPHALIC - Eye Exam Eye Exam: Normal appearance - ENT Exam ENT Exam: Normal External Ear Exam - Neck Exam Neck Exam: Normal Inspection - Respiratory Exam Respiratory Exam: NORMAL BREATHING PATTERN - Cardiovascular Exam Cardiovascular Exam: Irregular Rhythm. absent: JVD - GI/Abdominal Exam GI & Abdominal Exam: absent: Distended - Rectal Exam Rectal Exam: Deferred - Exam Additional comments: Above deferred. - Extremities Exam Extremities Exam: Normal Inspection - Back Exam Back Exam: NORMAL INSPECTION - Neurological Exam Neurological Exam: Alert, Oriented x3 - Psychiatric Exam Psychiatric exam: Normal Affect, Normal Mood - Skin Skin Exam: Normal Color Assessment and Plan - Assessment and Plan (Free Text) Assessment: Atrial fibrillation with RVR. CHF. Anemia. COPD. DM II. HTN. CKD. Plan: Cardizem 20 mg IV was given. Heart rate came down to 100-110 after that. Follow up electrolytes. Continue present management.
--- NOTE | 2016-12-08 06:09 | CP.PCM.CON ---
Addendum entered and electronically signed by Vidya Paul DO 12/08/16 07:13: R breast abscess aspirated -f/u wound Culture -Bactroban -Dressing change PRN -May resume anticoagulation -Cancel US DW Dr. Mayorga Original Note: <Vidya Paul - Last Filed: 12/08/16 06:00> History of Present Illness - History of Present Illness History of Present Illness: Surgery for Dr. Mayorga 70 F w PMH of CHF EF 35%, CAD, COPD, DM was admitted with CHF and ANDREA. Surgery is consulted for R chest wall abscess. Pt doesn't remember having lesion on her R chest. It was noticed by ID doctor. Pt had low grade fever of 100.4. Pt denies pain,chill, N,V,D, trauma, blurry vision, CP. PSH: CABG, Mitral valve repair Review of Systems - Review of Systems Review of Systems: See HPI Past Patient History - Infectious Disease Hx of Infectious Diseases: None - Tetanus Immunizations Tetanus Immunization: Unknown - Past Medical History & Family History Past Medical History?: Yes - Past Social History Smoking Status: Never Smoked - CARDIAC Hx Cardiac Disorders: Yes (Afib, CAD, Cardiomyopathy, MVR) Hx Congestive Heart Failure: Yes Hx Hypertension: Yes (and Pulmo HTN) Other/Comment: mitral valve replacement. - PULMONARY Hx Respiratory Disorders: Yes Hx Chronic Obstructive Pulmonary Disease (COPD): Yes - NEUROLOGICAL Hx Neurological Disorder: No - HEENT Hx HEENT Problems: Yes Other/Comment: wears glasses - RENAL Hx Chronic Kidney Disease: Yes Hx Renal Failure: Yes (not on hemodialysis) Other/Comment: pt was on dialysis for one week after CHF diagnosis - ENDOCRINE/METABOLIC Hx Endocrine Disorders: Yes Hx Diabetes Mellitus Type 2: Yes Hx Hypothyroidism: Yes - HEMATOLOGICAL/ONCOLOGICAL Hx Blood Disorders: No - INTEGUMENTARY Hx Dermatological Problems: Yes Other/Comment: gout - MUSCULOSKELETAL/RHEUMATOLOGICAL Hx Falls: No Hx Gout: Yes - GASTROINTESTINAL Hx Gastroesophageal Reflux: Yes Other/Comment: umbilical hernia - GENITOURINARY/GYNECOLOGICAL Hx Genitourinary Disorders: No - PSYCHIATRIC Hx Psychophysiologic Disorder: No Hx Substance Use: No - SURGICAL HISTORY Other/Comment: MV r/p, varicose veins b/l legs - ANESTHESIA Hx Anesthesia: Yes Hx Anesthesia Reactions: No Hx Malignant Hyperthermia: No Meds Allergies/Adverse Reactions: Allergies Allergy/AdvReac Type Severity Reaction Status Date / Time No Known Allergies Allergy Verified 12/07/16 09:06 - Medications Medications: Current Medications Apixaban (Eliquis) 2.5 mg PO BID [facility] PRN Reason: Protocol Last Admin: 12/07/16 17:54 Dose: 2.5 mg Famotidine (Pepcid) 20 mg PO DAILY [facility] Last Admin: 12/07/16 17:54 Dose: 20 mg Ferrous Sulfate (Feosol) 324 mg PO DAILY [facility] Dobutamine HCl/Dextrose (Dobutamine/Dextrose 5% 500mg/250ml) 500 mg in 250 mls @ 4.933 mls/hr IV .Q24H PRN; Protocol; 2.5 MCG/KG/MIN PRN Reason: TITRATE PER PROTOCOL Last Admin: 12/07/16 18:22 Dose: 4.933 mls/hr Ceftaroline Fosamil 200 mg/ (Sodium Chloride) 50 mls @ 50 mls/hr IVPB Q12H [facility] PRN Reason: Protocol Stop: 12/15/16 17:46 Last Admin: 12/07/16 18:59 Dose: 50 mls/hr Insulin Human Regular (Humulin R Low) 0 units SC ACHS [facility] PRN Reason: Protocol Last Admin: 12/07/16 22:06 Dose: Not Given Methimazole (Tapazole) 5 mg PO DAILY [facility] Last Admin: 12/07/16 17:54 Dose: 5 mg Montelukast Sodium (Singulair) 10 mg PO HS [facility] Last Admin: 12/07/16 22:15 Dose: 10 mg Tadalafil [Adcirca] (20 Mg) 20 mg PO DAILY [facility] Physical Exam - Constitutional Appears: Well, No Acute Distress - Head Exam Head Exam: ATRAUMATIC, NORMAL INSPECTION, NORMOCEPHALIC - Eye Exam Eye Exam: EOMI, Normal appearance, PERRL Pupil Exam: NORMAL ACCOMODATION, PERRL - ENT Exam ENT Exam: Mucous Membranes Moist, Normal Exam - Neck Exam Neck exam: Positive for: Normal Inspection - Respiratory Exam Respiratory Exam: Clear to Auscultation Bilateral, NORMAL BREATHING PATTERN - Cardiovascular Exam Cardiovascular Exam: REGULAR RHYTHM - GI/Abdominal Exam GI & Abdominal Exam: Normal Bowel Sounds, Soft. absent: Tenderness - Extremities Exam Extremities exam: Positive for: normal inspection - Back Exam Back exam: NORMAL INSPECTION - Neurological Exam Neurological exam: Alert, CN II-XII Intact, Normal Gait, Oriented x3, Reflexes Normal - Psychiatric Exam Psychiatric exam: Normal Affect, Normal Mood - Skin Skin Exam: Dry, Erythema, Intact, Normal Color, Warm Additional comments: R infra mammary fold area has 2cm raised lesion with erythema. Central excoriation. Soft, NT. Results - Vital Signs Recent Vital Signs: Last Vital Signs Temp 98.0 F 12/08/16 00:00 Pulse 158 H 12/08/16 04:29 Resp 20 12/08/16 00:00 BP 126/71 12/08/16 00:00 Pulse Ox 98 12/08/16 04:29 - Labs Result Diagrams: 12/07/16 09:37 12/07/16 09:37 Labs: Laboratory Results - last 24 hr 12/07/16 16:40 POC Glucose (mg/dL) 93 Assessment & Plan - Assessment and Plan (Free Text) Assessment: R inframammary fold lesion -f/u US of breast -May aspirate before incision and drainage -Medical management -ABX Will DW Dr. Mayorga <Rickie Mayorga - Last Filed: 12/09/16 10:46> Meds - Medications Medications: Current Medications Acetaminophen (Tylenol 325mg Tab) 650 mg PO Q6H PRN PRN Reason: Fever >100.4 F Last Admin: 12/08/16 09:34 Dose: 650 mg Apixaban (Eliquis) 2.5 mg PO BID [facility] PRN Reason: Protocol Last Admin: 12/09/16 09:36 Dose: 2.5 mg Diltiazem HCl (Cardizem Cd) 120 mg PO DAILY [facility] Last Admin: 12/09/16 09:36 Dose: 120 mg Famotidine (Pepcid) 20 mg PO DAILY [facility] Last Admin: 12/09/16 09:35 Dose: 20 mg Ferrous Sulfate (Feosol) 324 mg PO DAILY [facility] Last Admin: 12/09/16 09:35 Dose: 324 mg Hydralazine HCl (Apresoline) 10 mg PO QID [facility] Last Admin: 12/09/16 09:36 Dose: 10 mg Ceftaroline Fosamil 200 mg/ (Sodium Chloride) 50 mls @ 50 mls/hr IVPB Q12H [facility] PRN Reason: Protocol Stop: 12/15/16 17:46 Last Admin: 12/09/16 05:49 Dose: 50 mls/hr Insulin Human Regular (Humulin R Low) 0 units SC ACHS [facility] PRN Reason: Protocol Last Admin: 12/09/16 07:51 Dose: Not Given Methimazole (Tapazole) 5 mg PO DAILY [facility] Last Admin: 12/09/16 09:36 Dose: 5 mg Montelukast Sodium (Singulair) 10 mg PO HS [facility] Last Admin: 12/08/16 21:45 Dose: 10 mg Mupirocin (Bactroban Ointment) 0 gm TOP BID [facility] Last Admin: 12/09/16 09:36 Dose: 1 applic Tadalafil [Adcirca] (20 Mg (Home Med)) 20 mg PO DAILY [facility] Last Admin: 12/09/16 09:36 Dose: 20 mg Pantoprazole Sodium (Protonix Ec Tab) 20 mg PO 0600 [facility] Last Admin: 12/09/16 05:49 Dose: 20 mg Prednisone (Prednisone Tab) 20 mg PO DAILY [facility] Last Admin: 12/09/16 09:35 Dose: 20 mg Verapamil HCl (Verapamil Inj) 2.5 mg IVP ONCE PRN PRN Reason: FOR heart rate >120 Results - Vital Signs Recent Vital Signs: Last Vital Signs Temp 97.9 F 12/09/16 06:00 Pulse 77 12/09/16 10:00 Resp 19 12/09/16 06:00 BP 111/55 L 12/09/16 09:36 Pulse Ox 100 12/09/16 06:00 - Labs Result Diagrams: 12/09/16 07:45 12/09/16 07:45 Labs: Laboratory Results - last 24 hr 12/08/16 12/08/16 12/08/16 07:00 11:20 12:39 WBC RBC Hgb Hct MCV MCH MCHC RDW Plt Count MPV Sodium Potassium Chloride Carbon Dioxide Anion Gap BUN Creatinine Est GFR ( Amer) Est GFR (Non-Af Amer) POC Glucose (mg/dL) 141 H Random Glucose Calcium Triglycerides Cholesterol LDL Cholesterol Direct HDL Cholesterol Procalcitonin 4.26 H TSH 3rd Generation Ur Random Creatinine 57 12/09/16 12/09/16 12/09/16 07:45 07:45 07:45 WBC 7.8 RBC 3.26 L Hgb 9.6 L Hct 29.6 L MCV 90.8 MCH 29.4 MCHC 32.4 RDW 15.1 H Plt Count 227 MPV 9.8 Sodium 132 Potassium 4.7 Chloride 104 Carbon Dioxide 17 L Anion Gap 16 BUN 130 H* Creatinine 2.7 H Est GFR ( Amer) 21 Est GFR (Non-Af Amer) 17 POC Glucose (mg/dL) Random Glucose 109 Calcium 9.0 Triglycerides 130 Cholesterol 151 LDL Cholesterol Direct 86 HDL Cholesterol 25 L Procalcitonin TSH 3rd Generation 2.92 Ur Random Creatinine Assessment & Plan - Assessment and Plan (Free Text) Assessment: Dx Infected Breast fold Cyst-cellulitis Decompressed wirh manual compression/ c/s sent/ topical Mupirocin Rx Done under my direct supervision Aviva Mayorga MD FACS
[2016-12-08 06:21] LABS: HEMATOCRIT 28.8 % (36.0-48.0); MEAN CELL VOLUME 90.3 fL (80.0-105.0); MEAN CORPUSCULAR HEMOGLOBIN 30.1 pg (25.0-35.0); MEAN CORPUSCULAR HGB CONC 33.3 g/dl (31.0-37.0); MEAN PLATELET VOLUME 9.5 fl (7.0-11.0); RED CELL DISTRIBUTION WIDTH 15.3 % (11.5-14.5); WHITE BLOOD COUNT 9.3 10^3/ul (4.5-11.0)
[2016-12-08 06:34] LABS: BILIRUBIN,TOTAL 0.9 mg/dL (0.2-1.3); CALCIUM 9.1 mg/dL (8.4-10.5); POTASSIUM 4.8 mmol/L (3.6-5.0); TOTAL PROTEIN 6.8 g/dL (5.8-8.3); URIC ACID 14.2 mg/dL (2.5-6.2)
[2016-12-08 07:30] LABS: IRON 22 ug/dL (45-180)
[2016-12-08] MEDS: Insulin Reg-LOW-Coverage SC SCH ×4 (07:50→21:44)
[2016-12-08 09:10] LABS: MAGNESIUM 2.7 mg/dL (1.7-2.2)
[2016-12-08 09:21] LABS: TROPONIN I 0.09 ng/mL
[2016-12-08] MEDS: TADALAFIL 20 MG PO SCH (09:33)
[2016-12-08] MEDS: diltiaZEM 120 mg/24 Hours CD Cap PO SCH (09:33)
[2016-12-08] MEDS: methIMAzole 5 MG TAB PO SCH (09:33)
[2016-12-08] MEDS: Pantoprazole 20 mg EC Tab PO SCH (09:33)
[2016-12-08] MEDS ORDERED: FERROUS SULFATE 325 MG PO SCH (10:00)
[2016-12-08] MEDS ORDERED: cefTRIAXone 1 gm 1 GM/100 ML BAG IVPB SCH (10:00)
--- NOTE | 2016-12-08 10:46 | CP.PCM.PCO ---
Physician Communication Note - Physician Communication Note Physician Communication Note: Abscess drained/Rx Bactroban-c/s sent
--- NOTE | 2016-12-08 11:52 | CARD ---
APPROVED REPORT EKG Measurement Heart [id number] 128P [id number] <Conclusion> Normal sinus rhythm Left axis deviation Left bundle branch block Abnormal ECG
--- NOTE | 2016-12-08 17:59 | RAD ---
PROCEDURE: Left Knee Radiographs. HISTORY: Pain. COMPARISON: None. FINDINGS: BONES: Normal. No fracture. JOINTS: There is moderate joint space narrowing in the medial compartment with some bony sclerosis JOINT EFFUSION: Small joint effusion OTHER FINDINGS: None. IMPRESSION: There is moderate joint space narrowing in the medial compartment with some bony sclerosis
--- NOTE | 2016-12-08 22:40 | CP.PCM.CON ---
History of Present Illness - History of Present Illness History of Present Illness: 70 F w PMH of CHF EF 35%, CAD, COPD, DM was admitted with CHF and ANDREA. R chest wall abscess. Pt doesn't remember having lesion on her R chest. It was noticed by ID doctor. Pt had low grade fever of 100.4. Pt denies pain,chill, N,V,D, trauma, blurry vision, SOB with exertion, was placed on dobutamine end up with rapid heart rate now off dobutamine, and on cardiazem Past Patient History - Infectious Disease Hx of Infectious Diseases: None - Tetanus Immunizations Tetanus Immunization: Unknown - Past Medical History & Family History Past Medical History?: Yes - Past Social History Smoking Status: Never Smoked - CARDIAC Hx Cardiac Disorders: Yes (Afib, CAD, Cardiomyopathy, MVR) Hx Congestive Heart Failure: Yes Hx Hypertension: Yes (and Pulmo HTN) Other/Comment: mitral valve replacement. - PULMONARY Hx Respiratory Disorders: Yes Hx Chronic Obstructive Pulmonary Disease (COPD): Yes - NEUROLOGICAL Hx Neurological Disorder: No - HEENT Hx HEENT Problems: Yes Other/Comment: wears glasses - RENAL Hx Chronic Kidney Disease: Yes Hx Renal Failure: Yes (not on hemodialysis) Other/Comment: pt was on dialysis for one week after CHF diagnosis - ENDOCRINE/METABOLIC Hx Endocrine Disorders: Yes Hx Diabetes Mellitus Type 2: Yes Hx Hypothyroidism: Yes - HEMATOLOGICAL/ONCOLOGICAL Hx Blood Disorders: No - INTEGUMENTARY Hx Dermatological Problems: Yes Other/Comment: gout - MUSCULOSKELETAL/RHEUMATOLOGICAL Hx Falls: No Hx Gout: Yes - GASTROINTESTINAL Hx Gastroesophageal Reflux: Yes Other/Comment: umbilical hernia - GENITOURINARY/GYNECOLOGICAL Hx Genitourinary Disorders: No - PSYCHIATRIC Hx Psychophysiologic Disorder: No Hx Substance Use: No - SURGICAL HISTORY Other/Comment: MV r/p, varicose veins b/l legs - ANESTHESIA Hx Anesthesia: Yes Hx Anesthesia Reactions: No Hx Malignant Hyperthermia: No Meds Allergies/Adverse Reactions: Allergies Allergy/AdvReac Type Severity Reaction Status Date / Time No Known Allergies Allergy Verified 12/07/16 09:06 - Medications Medications: Current Medications Acetaminophen (Tylenol 325mg Tab) 650 mg PO Q6H PRN PRN Reason: Fever >100.4 F Last Admin: 12/08/16 09:34 Dose: 650 mg Apixaban (Eliquis) 2.5 mg PO BID [facility] PRN Reason: Protocol Last Admin: 12/08/16 17:00 Dose: 2.5 mg Diltiazem HCl (Cardizem Cd) 120 mg PO DAILY [facility] Last Admin: 12/08/16 09:33 Dose: 120 mg Famotidine (Pepcid) 20 mg PO DAILY [facility] Last Admin: 12/08/16 09:33 Dose: 20 mg Ferrous Sulfate (Feosol) 324 mg PO DAILY [facility] Last Admin: 12/08/16 09:33 Dose: 324 mg Hydralazine HCl (Apresoline) 10 mg PO QID [facility] Last Admin: 12/08/16 18:29 Dose: 10 mg Ceftaroline Fosamil 200 mg/ (Sodium Chloride) 50 mls @ 50 mls/hr IVPB Q12H [facility] PRN Reason: Protocol Stop: 12/15/16 17:46 Last Admin: 12/08/16 18:29 Dose: 50 mls/hr Insulin Human Regular (Humulin R Low) 0 units SC ACHS [facility] PRN Reason: Protocol Last Admin: 12/08/16 16:59 Dose: 2 units Methimazole (Tapazole) 5 mg PO DAILY [facility] Last Admin: 12/08/16 09:33 Dose: 5 mg Montelukast Sodium (Singulair) 10 mg PO HS [facility] Last Admin: 12/07/16 22:15 Dose: 10 mg Mupirocin (Bactroban Ointment) 0 gm TOP BID [facility] Last Admin: 12/08/16 17:00 Dose: 1 applic Tadalafil [Adcirca] (20 Mg (Home Med)) 20 mg PO DAILY [facility] Last Admin: 12/08/16 09:33 Dose: 20 mg Pantoprazole Sodium (Protonix Ec Tab) 20 mg PO 0600 [facility] Last Admin: 12/08/16 09:33 Dose: 20 mg Prednisone (Prednisone Tab) 20 mg PO DAILY [facility] Last Admin: 12/08/16 09:34 Dose: 20 mg Verapamil HCl (Verapamil Inj) 2.5 mg IVP ONCE PRN PRN Reason: FOR heart rate >120 Physical Exam - Constitutional Appears: Chronically Ill - Head Exam Head Exam: ATRAUMATIC, NORMAL INSPECTION - Eye Exam Eye Exam: EOMI, Normal appearance, PERRL - Neck Exam Neck exam: Positive for: Normal Inspection - Respiratory Exam Respiratory Exam: Chest Wall Tenderness, Prolonged Expiratory Phase, Rales, Wheezes - Cardiovascular Exam Cardiovascular Exam: Irregular Rhythm - Extremities Exam Extremities exam: Positive for: calf tenderness - Neurological Exam Neurological exam: Alert, CN II-XII Intact, Normal Gait, Oriented x3, Reflexes Normal - Psychiatric Exam Psychiatric exam: Anxious Results - Vital Signs Recent Vital Signs: Last Vital Signs Temp 97.1 F L 12/08/16 18:50 Pulse 96 H 12/08/16 18:50 Resp 19 12/08/16 18:50 BP 111/66 12/08/16 18:50 Pulse Ox 98 12/08/16 04:29 - Labs Result Diagrams: 12/08/16 06:00 12/08/16 06:00 Labs: Laboratory Results - last 24 hr 12/08/16 12/08/16 12/08/16 06:00 06:00 06:00 WBC 9.3 RBC 3.19 L Hgb 9.6 L Hct 28.8 L MCV 90.3 MCH 30.1 MCHC 33.3 RDW 15.3 H Plt Count 180 MPV 9.5 Sodium 136 Potassium 4.8 Chloride 105 Carbon Dioxide 19 L Anion Gap 17 BUN 126 H* Creatinine 2.6 H Est GFR ( Amer) 22 Est GFR (Non-Af Amer) 18 POC Glucose (mg/dL) Random Glucose 87 Uric Acid 14.2 H Calcium 9.1 Magnesium Iron 22 L TIBC 181 L % Saturation 12 L Total Bilirubin 0.9 AST 36 ALT 30 Alkaline Phosphatase 219 H Troponin I Total Protein 6.8 Albumin 3.3 Globulin 3.5 Albumin/Globulin Ratio 1.0 L Procalcitonin Ur Random Creatinine 12/08/16 12/08/16 12/08/16 06:30 07:00 07:30 WBC RBC Hgb Hct MCV MCH MCHC RDW Plt Count MPV Sodium Potassium Chloride Carbon Dioxide Anion Gap BUN Creatinine Est GFR ( Amer) Est GFR (Non-Af Amer) POC Glucose (mg/dL) 85 Random Glucose Uric Acid Calcium Magnesium 2.7 H Iron TIBC % Saturation Total Bilirubin AST ALT Alkaline Phosphatase Troponin I 0.09 D Total Protein Albumin Globulin Albumin/Globulin Ratio Procalcitonin 4.26 H Ur Random Creatinine 12/08/16 12/08/16 11:20 12:39 WBC RBC Hgb Hct MCV MCH MCHC RDW Plt Count MPV Sodium Potassium Chloride Carbon Dioxide Anion Gap BUN Creatinine Est GFR ( Amer) Est GFR (Non-Af Amer) POC Glucose (mg/dL) 141 H Random Glucose Uric Acid Calcium Magnesium Iron TIBC % Saturation Total Bilirubin AST ALT Alkaline Phosphatase Troponin I Total Protein Albumin Globulin Albumin/Globulin Ratio Procalcitonin Ur Random Creatinine 57 Assessment & Plan (1) Pulmonary arterial hypertension Status: Acute (2) Sleep apnea in adult Status: Acute - Assessment and Plan (Free Text) Plan: antibiotic, broncho dilators, surgical consult, C PAP while sleeping, anti coagulation,
--- NOTE | 2016-12-08 23:32 | CP.PCM.PN ---
Subjective - Date & Time of Evaluation Date of Evaluation: 12/08/16 Time of Evaluation: 08:00 - Subjective Subjective: WEAKNESS Objective - Vital Signs/Intake and Output Vital Signs (last 24 hours): Temp Pulse Resp BP Pulse Ox 97.1 F L 73 20 105/54 L 98 12/08/16 18:50 12/08/16 22:51 12/08/16 21:00 12/08/16 21:44 12/08/16 04:29 - Medications Medications: Current Medications Acetaminophen (Tylenol 325mg Tab) 650 mg PO Q6H PRN PRN Reason: Fever >100.4 F Last Admin: 12/08/16 09:34 Dose: 650 mg Apixaban (Eliquis) 2.5 mg PO BID [facility] PRN Reason: Protocol Last Admin: 12/08/16 17:00 Dose: 2.5 mg Diltiazem HCl (Cardizem Cd) 120 mg PO DAILY [facility] Last Admin: 12/08/16 09:33 Dose: 120 mg Famotidine (Pepcid) 20 mg PO DAILY [facility] Last Admin: 12/08/16 09:33 Dose: 20 mg Ferrous Sulfate (Feosol) 324 mg PO DAILY [facility] Last Admin: 12/08/16 09:33 Dose: 324 mg Hydralazine HCl (Apresoline) 10 mg PO QID [facility] Last Admin: 12/08/16 21:44 Dose: 10 mg Ceftaroline Fosamil 200 mg/ (Sodium Chloride) 50 mls @ 50 mls/hr IVPB Q12H [facility] PRN Reason: Protocol Stop: 12/15/16 17:46 Last Admin: 12/08/16 18:29 Dose: 50 mls/hr Insulin Human Regular (Humulin R Low) 0 units SC ACHS [facility] PRN Reason: Protocol Last Admin: 12/08/16 21:44 Dose: Not Given Methimazole (Tapazole) 5 mg PO DAILY [facility] Last Admin: 12/08/16 09:33 Dose: 5 mg Montelukast Sodium (Singulair) 10 mg PO HS [facility] Last Admin: 12/08/16 21:45 Dose: 10 mg Mupirocin (Bactroban Ointment) 0 gm TOP BID [facility] Last Admin: 12/08/16 17:00 Dose: 1 applic Tadalafil [Adcirca] (20 Mg (Home Med)) 20 mg PO DAILY [facility] Last Admin: 12/08/16 09:33 Dose: 20 mg Pantoprazole Sodium (Protonix Ec Tab) 20 mg PO 0600 [facility] Last Admin: 12/08/16 09:33 Dose: 20 mg Prednisone (Prednisone Tab) 20 mg PO DAILY [facility] Last Admin: 12/08/16 09:34 Dose: 20 mg Verapamil HCl (Verapamil Inj) 2.5 mg IVP ONCE PRN PRN Reason: FOR heart rate >120 - Labs Labs: 12/08/16 06:00 12/08/16 06:00 - Constitutional Appears: Well - Head Exam Head Exam: ATRAUMATIC, NORMAL INSPECTION, NORMOCEPHALIC - Eye Exam Eye Exam: EOMI, Normal appearance, PERRL Pupil Exam: NORMAL ACCOMODATION, PERRL - ENT Exam ENT Exam: Mucous Membranes Moist, Normal Exam - Neck Exam Neck Exam: Full ROM, Normal Inspection. absent: Lymphadenopathy - Respiratory Exam Respiratory Exam: Clear to Ausculation Bilateral, NORMAL BREATHING PATTERN - Cardiovascular Exam Cardiovascular Exam: REGULAR RHYTHM, +S1, +S2. absent: Murmur - GI/Abdominal Exam GI & Abdominal Exam: Soft, Normal Bowel Sounds. absent: Tenderness - Rectal Exam Rectal Exam: NORMAL INSPECTION - Exam Exam: Circumcision, NORMAL INSPECTION External exam: NORMAL EXTERNAL EXAM Speculum exam: NORMAL SPECULUM EXAM Bimanual exam: NORMAL BIMANUAL EXAM - Extremities Exam Extremities Exam: Full ROM, Normal Capillary Refill, Normal Inspection. absent : Joint Swelling, Pedal Edema - Back Exam Back Exam: NORMAL INSPECTION - Neurological Exam Neurological Exam: Alert, Awake, CN II-XII Intact, Normal Gait, Oriented x3 - Psychiatric Exam Psychiatric exam: Normal Affect, Normal Mood - Skin Skin Exam: Dry, Intact, Normal Color, Warm Assessment and Plan (1) Acute renal failure Status: Acute - Assessment and Plan (Free Text) Assessment: FEVER RESOLVED CHEST ABSCESS IS DRAINED ACUTE KIDNEY INJURY Plan: ON TEFL PENDING WORK UP
[2016-12-09] MEDS: Pantoprazole 20 mg EC Tab PO SCH (05:49)
[2016-12-09] MEDS: Insulin Reg-LOW-Coverage SC SCH ×4 (07:51→22:08)
[2016-12-09 08:02] LABS: HEMATOCRIT 29.6 % (36.0-48.0); MEAN CELL VOLUME 90.8 fL (80.0-105.0); MEAN CORPUSCULAR HEMOGLOBIN 29.4 pg (25.0-35.0); MEAN CORPUSCULAR HGB CONC 32.4 g/dl (31.0-37.0); MEAN PLATELET VOLUME 9.8 fl (7.0-11.0); RED CELL DISTRIBUTION WIDTH 15.1 % (11.5-14.5); WHITE BLOOD COUNT 7.8 10^3/ul (4.5-11.0)
[2016-12-09 08:12] LABS: POTASSIUM 4.7 mmol/L (3.6-5.0)
--- NOTE | 2016-12-09 09:31 | CP.PCM.PN ---
Subjective - Date & Time of Evaluation Date of Evaluation: 12/09/16 Time of Evaluation: 06:30 - Subjective Subjective: Sagar Tierney D.O. PGY-1, General Surgery Progress Note: Dr. Mukesh Wesley. 70 year old female with a PMH of CAD, COPD, CHF, and DM who presented originally for CHF exacerbation and ANDREA and was found to have swelling under right breast, found to have a right chest wall abscess s/p aspiration at bedside. Patient is doing well today, states that definitely the swelling around the area has gotten smaller and she feels somewhat better. No other complains elicited including no N/V/D/C/fevers/chills or otherwise. Objective - Vital Signs/Intake and Output Vital Signs (last 24 hours): Temp Pulse Resp BP Pulse Ox 97.9 F 63 19 106/57 L 100 12/09/16 06:00 12/09/16 06:00 12/09/16 06:00 12/09/16 06:00 12/09/16 06:00 Intake and Output: 12/09/16 12/09/16 06:59 18:59 Intake Total 0 Output Total 400 Balance -400 - Medications Medications: Current Medications Acetaminophen (Tylenol 325mg Tab) 650 mg PO Q6H PRN PRN Reason: Fever >100.4 F Last Admin: 12/08/16 09:34 Dose: 650 mg Apixaban (Eliquis) 2.5 mg PO BID [facility] PRN Reason: Protocol Last Admin: 12/08/16 17:00 Dose: 2.5 mg Diltiazem HCl (Cardizem Cd) 120 mg PO DAILY [facility] Last Admin: 12/08/16 09:33 Dose: 120 mg Famotidine (Pepcid) 20 mg PO DAILY [facility] Last Admin: 12/08/16 09:33 Dose: 20 mg Ferrous Sulfate (Feosol) 324 mg PO DAILY [facility] Last Admin: 12/08/16 09:33 Dose: 324 mg Hydralazine HCl (Apresoline) 10 mg PO QID [facility] Last Admin: 12/08/16 21:44 Dose: 10 mg Ceftaroline Fosamil 200 mg/ (Sodium Chloride) 50 mls @ 50 mls/hr IVPB Q12H [facility] PRN Reason: Protocol Stop: 12/15/16 17:46 Last Admin: 12/09/16 05:49 Dose: 50 mls/hr Insulin Human Regular (Humulin R Low) 0 units SC ACHS [facility] PRN Reason: Protocol Last Admin: 12/09/16 07:51 Dose: Not Given Methimazole (Tapazole) 5 mg PO DAILY [facility] Last Admin: 12/08/16 09:33 Dose: 5 mg Montelukast Sodium (Singulair) 10 mg PO HS [facility] Last Admin: 12/08/16 21:45 Dose: 10 mg Mupirocin (Bactroban Ointment) 0 gm TOP BID [facility] Last Admin: 12/08/16 17:00 Dose: 1 applic Tadalafil [Adcirca] (20 Mg (Home Med)) 20 mg PO DAILY [facility] Last Admin: 12/08/16 09:33 Dose: 20 mg Pantoprazole Sodium (Protonix Ec Tab) 20 mg PO 0600 [facility] Last Admin: 12/09/16 05:49 Dose: 20 mg Prednisone (Prednisone Tab) 20 mg PO DAILY [facility] Last Admin: 12/08/16 09:34 Dose: 20 mg Verapamil HCl (Verapamil Inj) 2.5 mg IVP ONCE PRN PRN Reason: FOR heart rate >120 - Labs Labs: 12/09/16 07:45 12/09/16 07:45 - Constitutional Appears: Well developed, Well nourished, No Acute Distress - Head Exam Head Exam: ATRAUMATIC, NORMOCEPHALIC - Eye Exam Eye Exam: EOMI, Normal appearance - ENT Exam ENT Exam: Mucous Membranes Moist - Neck Exam Neck exam: Positive for: Normal Inspection - Respiratory Exam Respiratory Exam: absent: Acute Respiratory Distress - Cardiovascular Exam Cardiovascular Exam: RRR - GI/Abdominal Exam GI & Abdominal Exam: Normal Bowel Sounds, Soft. absent: Tenderness - Neurological Exam Neurological exam: Alert, CN II-XII Intact, Normal Gait, Oriented x3, Reflexes Normal - Skin Skin Exam: right sub-inframammary fold area swelling and surrounding erythema improved, some central excoriation, only mild serous drainage expressed Assessment and Plan - Assessment and Plan (Free Text) Assessment: 70 year old female with a right chest wall abscess s/p aspiration at bedside. Plan: Pending wound cultures Cont bactroban and PRN dressing changes ID following, on ceftaroline, recs appreciated Improving overall Will continue to follow Will discuss with attending physician. Thank you for the pleasure of participating in the care of this patient.
[2016-12-09] MEDS: TADALAFIL 20 MG PO SCH (09:36)
[2016-12-09] MEDS: diltiaZEM 120 mg/24 Hours CD Cap PO SCH (09:36)
[2016-12-09] MEDS: methIMAzole 5 MG TAB PO SCH (09:36)
[2016-12-09] MEDS ORDERED: Sodium Chloride 0.45% 1,000 ML IV SCH ×2 (11:00→13:30)
--- NOTE | 2016-12-09 11:19 | CARD ---
APPROVED REPORT EKG Measurement Heart [id number] <Conclusion> Normal Sinus Rythm with Prolonged MO Interval and Non Specific ST_T Changes. Intermittent going into LBBB Pattern.
--- NOTE | 2016-12-09 13:47 | CP.PCM.PN ---
Subjective - Date & Time of Evaluation Date of Evaluation: 12/09/16 Time of Evaluation: 12:00 - Subjective Subjective: 70 F w PMH of CHF EF 35%, CAD, COPD, DM was admitted with CHF and ANDREA. R chest wall abscess. Pt doesn't remember having lesion on her R chest. It was noticed by ID doctor. Pt had low grade fever of 100.4. Pt denies pain,chill, N,V,D, trauma, blurry vision, SOB with exertion, son at bed side feel better, tolerated C pap well last night Objective - Vital Signs/Intake and Output Vital Signs (last 24 hours): Temp Pulse Resp BP Pulse Ox 97.3 F L 74 18 123/69 100 12/09/16 11:51 12/09/16 11:51 12/09/16 11:51 12/09/16 11:51 12/09/16 06:00 Intake and Output: 12/09/16 12/09/16 06:59 18:59 Intake Total 0 Output Total 400 Balance -400 - Medications Medications: Current Medications Acetaminophen (Tylenol 325mg Tab) 650 mg PO Q6H PRN PRN Reason: Fever >100.4 F Last Admin: 12/08/16 09:34 Dose: 650 mg Apixaban (Eliquis) 2.5 mg PO BID [facility] PRN Reason: Protocol Last Admin: 12/09/16 09:36 Dose: 2.5 mg Diltiazem HCl (Cardizem Cd) 120 mg PO DAILY [facility] Last Admin: 12/09/16 09:36 Dose: 120 mg Famotidine (Pepcid) 20 mg PO DAILY [facility] Last Admin: 12/09/16 09:35 Dose: 20 mg Ferrous Sulfate (Feosol) 324 mg PO DAILY [facility] Last Admin: 12/09/16 09:35 Dose: 324 mg Hydralazine HCl (Apresoline) 10 mg PO QID [facility] Last Admin: 12/09/16 09:36 Dose: 10 mg Ceftaroline Fosamil 200 mg/ (Sodium Chloride) 50 mls @ 50 mls/hr IVPB Q12H [facility] PRN Reason: Protocol Stop: 12/15/16 17:46 Last Admin: 12/09/16 05:49 Dose: 50 mls/hr Sodium Chloride (Sodium Chloride 0.45%) 1,000 mls @ 60 mls/hr IV .[id number] [facility] Insulin Human Regular (Humulin R Low) 0 units SC ACHS [facility] PRN Reason: Protocol Last Admin: 12/09/16 11:37 Dose: 1 units Methimazole (Tapazole) 5 mg PO DAILY [facility] Last Admin: 12/09/16 09:36 Dose: 5 mg Montelukast Sodium (Singulair) 10 mg PO HS [facility] Last Admin: 12/08/16 21:45 Dose: 10 mg Mupirocin (Bactroban Ointment) 0 gm TOP BID [facility] Last Admin: 12/09/16 09:36 Dose: 1 applic Tadalafil [Adcirca] (20 Mg (Home Med)) 20 mg PO DAILY [facility] Last Admin: 12/09/16 09:36 Dose: 20 mg Pantoprazole Sodium (Protonix Ec Tab) 20 mg PO 0600 [facility] Last Admin: 12/09/16 05:49 Dose: 20 mg Prednisone (Prednisone Tab) 20 mg PO DAILY [facility] Last Admin: 12/09/16 09:35 Dose: 20 mg Verapamil HCl (Verapamil Inj) 2.5 mg IVP ONCE PRN PRN Reason: FOR heart rate >120 - Labs Labs: 12/09/16 07:45 12/09/16 07:45 - Constitutional Appears: Well - Head Exam Head Exam: ATRAUMATIC, NORMAL INSPECTION, NORMOCEPHALIC - Eye Exam Eye Exam: EOMI, Normal appearance, PERRL - ENT Exam ENT Exam: Mucous Membranes Moist, Normal Exam - Neck Exam Neck Exam: Full ROM, Normal Inspection. absent: Lymphadenopathy - Respiratory Exam Respiratory Exam: Rales, Wheezes - Cardiovascular Exam Cardiovascular Exam: Irregular Rhythm - GI/Abdominal Exam GI & Abdominal Exam: Soft, Normal Bowel Sounds. absent: Tenderness - Extremities Exam Extremities Exam: Joint Swelling, Pedal Edema - Neurological Exam Neurological Exam: Alert, Awake, CN II-XII Intact, Normal Gait, Oriented x3 - Psychiatric Exam Psychiatric exam: Normal Affect, Normal Mood - Skin Additional comments: right under breast, wound with dressing Assessment and Plan (1) Pulmonary arterial hypertension Status: Acute (2) Sleep apnea in adult Assessment & Plan: on pulmonary vasodilator, supplement oxygen Status: Acute (3) Abscess Assessment & Plan: continue C PAP while sleeping, need sleep study as out patient Status: Acute (4) Acute renal failure Assessment & Plan: renal follow up Status: Acute (5) Atrial fibrillation Assessment & Plan: rate controle, anti coagulation Status: Acute - Assessment and Plan (Free Text) Plan: spoke to patient,s son at bed side Procedures Attestation:: I certify that I have explained the specified Operation(s) or Procedure(s), risks, benefits and reasonable alternatives to the Patient and/or other person responsible. The opportunity was given to ask questions and all questions answered - Phlebotomy Obtained Bloods via: Peripheral Vein Sick
--- NOTE | 2016-12-09 20:03 | CP.PCM.PN ---
Subjective - Date & Time of Evaluation Date of Evaluation: 12/09/16 Time of Evaluation: 20:00 - Subjective Subjective: DOING BETTER Objective - Vital Signs/Intake and Output Vital Signs (last 24 hours): Temp Pulse Resp BP Pulse Ox 97 F L 75 19 125/77 100 12/09/16 18:00 12/09/16 18:00 12/09/16 18:00 12/09/16 18:00 12/09/16 06:00 - Medications Medications: Current Medications Acetaminophen (Tylenol 325mg Tab) 650 mg PO Q6H PRN PRN Reason: Fever >100.4 F Last Admin: 12/08/16 09:34 Dose: 650 mg Apixaban (Eliquis) 2.5 mg PO BID [facility] PRN Reason: Protocol Last Admin: 12/09/16 17:33 Dose: 2.5 mg Diltiazem HCl (Cardizem Cd) 120 mg PO DAILY [facility] Last Admin: 12/09/16 09:36 Dose: 120 mg Doxycycline Hyclate (Doryx) 100 mg PO Q12 [facility] PRN Reason: Protocol Stop: 12/12/16 22:01 Famotidine (Pepcid) 20 mg PO DAILY [facility] Last Admin: 12/09/16 09:35 Dose: 20 mg Ferrous Sulfate (Feosol) 324 mg PO DAILY [facility] Last Admin: 12/09/16 09:35 Dose: 324 mg Hydralazine HCl (Apresoline) 10 mg PO QID [facility] Last Admin: 12/09/16 17:32 Dose: 10 mg Sodium Chloride (Sodium Chloride 0.45%) 1,000 mls @ 60 mls/hr IV .[id number] [facility] Last Admin: 12/09/16 14:06 Dose: 60 mls/hr Insulin Human Regular (Humulin R Low) 0 units SC ACHS [facility] PRN Reason: Protocol Last Admin: 12/09/16 16:48 Dose: Not Given Methimazole (Tapazole) 5 mg PO DAILY [facility] Last Admin: 12/09/16 09:36 Dose: 5 mg Montelukast Sodium (Singulair) 10 mg PO HS [facility] Last Admin: 12/08/16 21:45 Dose: 10 mg Mupirocin (Bactroban Ointment) 0 gm TOP BID [facility] Last Admin: 12/09/16 17:33 Dose: 1 applic Tadalafil [Adcirca] (20 Mg (Home Med)) 20 mg PO DAILY [facility] Last Admin: 12/09/16 09:36 Dose: 20 mg Pantoprazole Sodium (Protonix Ec Tab) 20 mg PO 0600 [facility] Last Admin: 12/09/16 05:49 Dose: 20 mg Prednisone (Prednisone Tab) 20 mg PO DAILY [facility] Last Admin: 12/09/16 09:35 Dose: 20 mg Sodium Bicarbonate (Sodium Bicarbonate Tab) 650 mg PO Q8 [facility] Last Admin: 12/09/16 17:32 Dose: 650 mg Verapamil HCl (Verapamil Inj) 2.5 mg IVP ONCE PRN PRN Reason: FOR heart rate >120 - Labs Labs: 12/09/16 07:45 12/09/16 07:45 - Constitutional Appears: Well - Head Exam Head Exam: ATRAUMATIC, NORMAL INSPECTION, NORMOCEPHALIC - Eye Exam Eye Exam: EOMI, Normal appearance, PERRL Pupil Exam: NORMAL ACCOMODATION, PERRL - ENT Exam ENT Exam: Mucous Membranes Moist, Normal Exam - Neck Exam Neck Exam: Full ROM, Normal Inspection. absent: Lymphadenopathy - Respiratory Exam Respiratory Exam: Clear to Ausculation Bilateral, NORMAL BREATHING PATTERN - Cardiovascular Exam Cardiovascular Exam: REGULAR RHYTHM, +S1, +S2. absent: Murmur - GI/Abdominal Exam GI & Abdominal Exam: Soft, Normal Bowel Sounds. absent: Tenderness - Rectal Exam Rectal Exam: NORMAL INSPECTION - Exam Exam: Circumcision, NORMAL INSPECTION External exam: NORMAL EXTERNAL EXAM Speculum exam: NORMAL SPECULUM EXAM Bimanual exam: NORMAL BIMANUAL EXAM - Extremities Exam Extremities Exam: Full ROM, Normal Capillary Refill, Normal Inspection. absent : Joint Swelling, Pedal Edema - Back Exam Back Exam: NORMAL INSPECTION - Neurological Exam Neurological Exam: Alert, Awake, CN II-XII Intact, Normal Gait, Oriented x3 - Psychiatric Exam Psychiatric exam: Normal Affect, Normal Mood - Skin Skin Exam: Dry, Intact, Normal Color, Warm Assessment and Plan (1) Acute renal failure Status: Acute (2) Fever Status: Acute (3) Chest wall abscess Status: Acute - Assessment and Plan (Free Text) Plan: D/C TEF PO DOXY 3 DAYS
[2016-12-09 23:41] VITALS: RESP 18
[2016-12-10] MEDS: Pantoprazole 20 mg EC Tab PO SCH (05:03)
[2016-12-10 06:05] VITALS: O2SAT 95
[2016-12-10 06:51] LABS: CALCIUM 8.8 mg/dL (8.4-10.5)
--- NOTE | 2016-12-10 08:17 | CP.PCM.PN ---
Subjective - Date & Time of Evaluation Date of Evaluation: 12/10/16 Time of Evaluation: 06:30 - Subjective Subjective: Sagar Tierney D.O. PGY-1, General Surgery Progress Note: Dr. Mukesh Wesley. 70 year old female with a right chest wall abscess s/p aspiration at bedside. Patient was seen and examined at bedside with surgical team. Patient is doing well, states that the swelling continues to go down and she does not have any discomfort anymore. No fevers/chills/N/V/D/C or other complaints elicited. Objective - Vital Signs/Intake and Output Vital Signs (last 24 hours): Temp Pulse Resp BP Pulse Ox 97.4 F L 98 H 18 110/68 95 12/10/16 06:00 12/10/16 06:00 12/10/16 06:00 12/10/16 06:00 12/10/16 06:00 Intake and Output: 12/10/16 12/10/16 06:59 18:59 Intake Total 360 Output Total 275 Balance 85 - Medications Medications: Current Medications Acetaminophen (Tylenol 325mg Tab) 650 mg PO Q6H PRN PRN Reason: Fever >100.4 F Last Admin: 12/08/16 09:34 Dose: 650 mg Apixaban (Eliquis) 2.5 mg PO BID [facility] PRN Reason: Protocol Last Admin: 12/09/16 17:33 Dose: 2.5 mg Diltiazem HCl (Cardizem Cd) 120 mg PO DAILY [facility] Last Admin: 12/09/16 09:36 Dose: 120 mg Doxycycline Hyclate (Doryx) 100 mg PO Q12 [facility] PRN Reason: Protocol Stop: 12/12/16 22:01 Last Admin: 12/09/16 22:06 Dose: 100 mg Famotidine (Pepcid) 20 mg PO DAILY [facility] Last Admin: 12/09/16 09:35 Dose: 20 mg Ferrous Sulfate (Feosol) 324 mg PO DAILY [facility] Last Admin: 12/09/16 09:35 Dose: 324 mg Hydralazine HCl (Apresoline) 10 mg PO QID [facility] Last Admin: 12/09/16 22:06 Dose: 10 mg Sodium Chloride (Sodium Chloride 0.45%) 1,000 mls @ 60 mls/hr IV .[id number] [facility] Last Admin: 12/09/16 14:06 Dose: 60 mls/hr Insulin Human Regular (Humulin R Low) 0 units SC ACHS [facility] PRN Reason: Protocol Last Admin: 12/09/16 22:08 Dose: Not Given Methimazole (Tapazole) 5 mg PO DAILY [facility] Last Admin: 12/09/16 09:36 Dose: 5 mg Montelukast Sodium (Singulair) 10 mg PO HS [facility] Last Admin: 12/09/16 22:07 Dose: 10 mg Mupirocin (Bactroban Ointment) 0 gm TOP BID [facility] Last Admin: 12/09/16 17:33 Dose: 1 applic Tadalafil [Adcirca] (20 Mg (Home Med)) 20 mg PO DAILY [facility] Last Admin: 12/09/16 09:36 Dose: 20 mg Pantoprazole Sodium (Protonix Ec Tab) 20 mg PO 0600 [facility] Last Admin: 12/10/16 05:03 Dose: 20 mg Prednisone (Prednisone Tab) 20 mg PO DAILY [facility] Last Admin: 12/09/16 09:35 Dose: 20 mg Sodium Bicarbonate (Sodium Bicarbonate Tab) 650 mg PO Q8 [facility] Last Admin: 12/10/16 05:03 Dose: 650 mg Verapamil HCl (Verapamil Inj) 2.5 mg IVP ONCE PRN PRN Reason: FOR heart rate >120 - Labs Labs: 12/09/16 07:45 12/10/16 05:30 - Constitutional Appears: Well, No Acute Distress - Head Exam Head Exam: ATRAUMATIC, NORMOCEPHALIC - Eye Exam Eye Exam: EOMI, Normal appearance - ENT Exam ENT Exam: Mucous Membranes Moist - Neck Exam Neck exam: Positive for: Normal Inspection - Respiratory Exam Respiratory Exam: absent: Acute Respiratory Distress - Cardiovascular Exam Cardiovascular Exam: RRR - GI/Abdominal Exam GI & Abdominal Exam: Normal Bowel Sounds, Soft. absent: Tenderness - Neurological Exam Neurological exam: Alert, Awake, Oriented x3 - Skin Skin Exam: decreased right sub-inframammary fold area swelling, re-dressed, no fluid expressed Assessment and Plan - Assessment and Plan (Free Text) Assessment: 70 year old female with a right chest wall abscess s/p aspiration at bedside. Plan: Awaiting WCx Cont bactroban and PRN dressing changes On doxycycline, ID recs appreciated Will continue to follow Will discuss with attending physician. Thank you for the pleasure of participating in the care of this patient.
[2016-12-10] MEDS: Insulin Reg-LOW-Coverage SC SCH ×2 (08:31→11:30)
--- NOTE | 2016-12-10 09:10 | CP.PCM.PN ---
Subjective - Date & Time of Evaluation Date of Evaluation: 12/10/16 Time of Evaluation: 08:30 - Subjective Subjective: Pt feels ok, No Chest pain, No SOB Objective - Vital Signs/Intake and Output Vital Signs (last 24 hours): Temp Pulse Resp BP Pulse Ox 97.4 F L 98 H 18 110/68 95 12/10/16 06:00 12/10/16 06:00 12/10/16 06:00 12/10/16 06:00 12/10/16 06:00 Intake and Output: 12/10/16 12/10/16 06:59 18:59 Intake Total 360 Output Total 275 Balance 85 - Medications Medications: Current Medications Acetaminophen (Tylenol 325mg Tab) 650 mg PO Q6H PRN PRN Reason: Fever >100.4 F Last Admin: 12/08/16 09:34 Dose: 650 mg Apixaban (Eliquis) 2.5 mg PO BID [facility] PRN Reason: Protocol Last Admin: 12/09/16 17:33 Dose: 2.5 mg Diltiazem HCl (Cardizem Cd) 120 mg PO DAILY [facility] Last Admin: 12/09/16 09:36 Dose: 120 mg Doxycycline Hyclate (Doryx) 100 mg PO Q12 [facility] PRN Reason: Protocol Stop: 12/12/16 22:01 Last Admin: 12/09/16 22:06 Dose: 100 mg Famotidine (Pepcid) 20 mg PO DAILY [facility] Last Admin: 12/09/16 09:35 Dose: 20 mg Ferrous Sulfate (Feosol) 324 mg PO DAILY [facility] Last Admin: 12/09/16 09:35 Dose: 324 mg Hydralazine HCl (Apresoline) 10 mg PO QID [facility] Last Admin: 12/09/16 22:06 Dose: 10 mg Sodium Chloride (Sodium Chloride 0.45%) 1,000 mls @ 60 mls/hr IV .[id number] [facility] Last Admin: 12/09/16 14:06 Dose: 60 mls/hr Insulin Human Regular (Humulin R Low) 0 units SC ACHS [facility] PRN Reason: Protocol Last Admin: 12/10/16 08:31 Dose: Not Given Methimazole (Tapazole) 5 mg PO DAILY [facility] Last Admin: 12/09/16 09:36 Dose: 5 mg Montelukast Sodium (Singulair) 10 mg PO HS [facility] Last Admin: 12/09/16 22:07 Dose: 10 mg Mupirocin (Bactroban Ointment) 0 gm TOP BID [facility] Last Admin: 12/09/16 17:33 Dose: 1 applic Tadalafil [Adcirca] (20 Mg (Home Med)) 20 mg PO DAILY [facility] Last Admin: 12/09/16 09:36 Dose: 20 mg Pantoprazole Sodium (Protonix Ec Tab) 20 mg PO 0600 [facility] Last Admin: 12/10/16 05:03 Dose: 20 mg Prednisone (Prednisone Tab) 20 mg PO DAILY [facility] Last Admin: 12/09/16 09:35 Dose: 20 mg Sodium Bicarbonate (Sodium Bicarbonate Tab) 650 mg PO Q8 [facility] Last Admin: 12/10/16 05:03 Dose: 650 mg Verapamil HCl (Verapamil Inj) 2.5 mg IVP ONCE PRN PRN Reason: FOR heart rate >120 - Labs Labs: 12/09/16 07:45 12/10/16 05:30 - Extremities Exam Extremities Exam: Pedal Edema Assessment and Plan - Assessment and Plan (Free Text) Assessment: 70 yr pld female with PAF, S/p MVR, CMP non Ischemic, Acute Kidney injury, on CKD, Sensitive to Dobutrex went into A Fib RVR... off Dobutrex, admiited with Genralized weakness leg edemal and Acute kidney injury. Plan: Continue gentle hydration, Continue renal adjusted dose eliquis . F/U lab
[2016-12-10] MEDS: diltiaZEM 120 mg/24 Hours CD Cap PO SCH (09:23)
[2016-12-10] MEDS: methIMAzole 5 MG TAB PO SCH (09:24)
[2016-12-10] MEDS: TADALAFIL 20 MG PO SCH (09:24)
--- NOTE | 2016-12-10 11:04 | CP.PCM.PN ---
Subjective - Date & Time of Evaluation Date of Evaluation: 12/10/16 Time of Evaluation: 07:00 - Subjective Subjective: DOING BETTER Objective - Vital Signs/Intake and Output Vital Signs (last 24 hours): Temp Pulse Resp BP Pulse Ox 97.4 F L 110 H 18 114/64 95 12/10/16 06:00 12/10/16 09:24 12/10/16 06:00 12/10/16 09:24 12/10/16 06:00 Intake and Output: 12/10/16 12/10/16 06:59 18:59 Intake Total 360 Output Total 275 Balance 85 - Medications Medications: Current Medications Acetaminophen (Tylenol 325mg Tab) 650 mg PO Q6H PRN PRN Reason: Fever >100.4 F Last Admin: 12/08/16 09:34 Dose: 650 mg Apixaban (Eliquis) 2.5 mg PO BID [facility] PRN Reason: Protocol Last Admin: 12/10/16 09:24 Dose: 2.5 mg Diltiazem HCl (Cardizem Cd) 120 mg PO DAILY [facility] Last Admin: 12/10/16 09:23 Dose: 120 mg Doxycycline Hyclate (Doryx) 100 mg PO Q12 [facility] PRN Reason: Protocol Stop: 12/12/16 22:01 Last Admin: 12/10/16 09:24 Dose: 100 mg Famotidine (Pepcid) 20 mg PO DAILY [facility] Last Admin: 12/10/16 09:24 Dose: 20 mg Ferrous Sulfate (Feosol) 324 mg PO DAILY [facility] Last Admin: 12/10/16 09:24 Dose: 324 mg Hydralazine HCl (Apresoline) 10 mg PO QID [facility] Last Admin: 12/10/16 09:24 Dose: 10 mg Sodium Chloride (Sodium Chloride 0.45%) 1,000 mls @ 60 mls/hr IV .[id number] [facility] Last Admin: 12/09/16 14:06 Dose: 60 mls/hr Insulin Human Regular (Humulin R Low) 0 units SC ACHS [facility] PRN Reason: Protocol Last Admin: 12/10/16 08:31 Dose: Not Given Methimazole (Tapazole) 5 mg PO DAILY [facility] Last Admin: 12/10/16 09:24 Dose: 5 mg Montelukast Sodium (Singulair) 10 mg PO HS [facility] Last Admin: 12/09/16 22:07 Dose: 10 mg Mupirocin (Bactroban Ointment) 0 gm TOP BID [facility] Last Admin: 12/10/16 09:30 Dose: Not Given Tadalafil [Adcirca] (20 Mg (Home Med)) 20 mg PO DAILY [facility] Last Admin: 12/10/16 09:24 Dose: 20 mg Pantoprazole Sodium (Protonix Ec Tab) 20 mg PO 0600 [facility] Last Admin: 12/10/16 05:03 Dose: 20 mg Prednisone (Prednisone Tab) 10 mg PO DAILY [facility] Sodium Bicarbonate (Sodium Bicarbonate Tab) 650 mg PO Q8 [facility] Last Admin: 12/10/16 05:03 Dose: 650 mg Verapamil HCl (Verapamil Inj) 2.5 mg IVP ONCE [facility] PRN Reason: FOR heart rate >120 - Labs Labs: 12/09/16 07:45 12/10/16 05:30 - Constitutional Appears: Well - Head Exam Head Exam: ATRAUMATIC, NORMAL INSPECTION, NORMOCEPHALIC - Eye Exam Eye Exam: EOMI, Normal appearance, PERRL Pupil Exam: NORMAL ACCOMODATION, PERRL - ENT Exam ENT Exam: Mucous Membranes Moist, Normal Exam - Neck Exam Neck Exam: Full ROM, Normal Inspection. absent: Lymphadenopathy - Respiratory Exam Respiratory Exam: Clear to Ausculation Bilateral, NORMAL BREATHING PATTERN - Cardiovascular Exam Cardiovascular Exam: REGULAR RHYTHM, +S1, +S2. absent: Murmur - GI/Abdominal Exam GI & Abdominal Exam: Soft, Normal Bowel Sounds. absent: Tenderness - Rectal Exam Rectal Exam: NORMAL INSPECTION - Exam Exam: Circumcision, NORMAL INSPECTION External exam: NORMAL EXTERNAL EXAM Speculum exam: NORMAL SPECULUM EXAM Bimanual exam: NORMAL BIMANUAL EXAM - Extremities Exam Extremities Exam: Full ROM, Normal Capillary Refill, Normal Inspection. absent : Joint Swelling, Pedal Edema - Back Exam Back Exam: NORMAL INSPECTION - Neurological Exam Neurological Exam: Alert, Awake, CN II-XII Intact, Normal Gait, Oriented x3 - Psychiatric Exam Psychiatric exam: Normal Affect, Normal Mood - Skin Skin Exam: Dry, Intact, Normal Color, Warm Assessment and Plan (1) Acute renal failure Status: Acute (2) Fever Status: Acute (3) Chest wall abscess Status: Acute - Assessment and Plan (Free Text) Plan: GRAM NEG IN [facility] NOT REQIURING TX ON PO DOX FOR THREE DAYS
[2016-12-10 12:13] VITALS: TEMP 98
--- NOTE | 2016-12-10 13:13 | CP.PCM.PN ---
Subjective - Date & Time of Evaluation Date of Evaluation: 12/10/16 Time of Evaluation: 12:05 - Subjective Subjective: awake, alert Denies CP/SOB C/o pain in feet and L knee Objective - Vital Signs/Intake and Output Vital Signs (last 24 hours): Temp Pulse Resp BP Pulse Ox 98 F 79 18 103/66 95 12/10/16 12:00 12/10/16 12:00 12/10/16 12:00 12/10/16 12:00 12/10/16 06:00 Intake and Output: 12/10/16 12/10/16 06:59 18:59 Intake Total 360 Output Total 275 Balance 85 - Medications Medications: Current Medications Acetaminophen (Tylenol 325mg Tab) 650 mg PO Q6H PRN PRN Reason: Fever >100.4 F Last Admin: 12/08/16 09:34 Dose: 650 mg Apixaban (Eliquis) 2.5 mg PO BID [facility] PRN Reason: Protocol Last Admin: 12/10/16 09:24 Dose: 2.5 mg Diltiazem HCl (Cardizem Cd) 120 mg PO DAILY [facility] Last Admin: 12/10/16 09:23 Dose: 120 mg Doxycycline Hyclate (Doryx) 100 mg PO Q12 [facility] PRN Reason: Protocol Stop: 12/12/16 22:01 Last Admin: 12/10/16 09:24 Dose: 100 mg Famotidine (Pepcid) 20 mg PO DAILY [facility] Last Admin: 12/10/16 09:24 Dose: 20 mg Ferrous Sulfate (Feosol) 324 mg PO DAILY [facility] Last Admin: 12/10/16 09:24 Dose: 324 mg Hydralazine HCl (Apresoline) 10 mg PO QID [facility] Last Admin: 12/10/16 09:24 Dose: 10 mg Sodium Chloride (Sodium Chloride 0.45%) 1,000 mls @ 60 mls/hr IV .[id number] [facility] Last Admin: 12/09/16 14:06 Dose: 60 mls/hr Insulin Human Regular (Humulin R Low) 0 units SC ACHS [facility] PRN Reason: Protocol Last Admin: 12/10/16 08:31 Dose: Not Given Methimazole (Tapazole) 5 mg PO DAILY [facility] Last Admin: 12/10/16 09:24 Dose: 5 mg Montelukast Sodium (Singulair) 10 mg PO HS [facility] Last Admin: 12/09/16 22:07 Dose: 10 mg Mupirocin (Bactroban Ointment) 0 gm TOP BID [facility] Last Admin: 12/10/16 09:30 Dose: Not Given Tadalafil [Adcirca] (20 Mg (Home Med)) 20 mg PO DAILY [facility] Last Admin: 12/10/16 09:24 Dose: 20 mg Pantoprazole Sodium (Protonix Ec Tab) 20 mg PO 0600 [facility] Last Admin: 12/10/16 05:03 Dose: 20 mg Prednisone (Prednisone Tab) 10 mg PO DAILY [facility] Sodium Bicarbonate (Sodium Bicarbonate Tab) 650 mg PO Q8 [facility] Last Admin: 12/10/16 05:03 Dose: 650 mg Verapamil HCl (Verapamil Inj) 2.5 mg IVP ONCE PRN PRN Reason: FOR heart rate >120 - Labs Labs: 12/09/16 07:45 12/10/16 05:30 - Constitutional Appears: Non-toxic - Head Exam Head Exam: NORMAL INSPECTION, NORMOCEPHALIC - Eye Exam Eye Exam: Normal appearance Pupil Exam: PERRL Additional comments: + PALLOR - ENT Exam ENT Exam: Mucous Membranes Moist - Respiratory Exam Respiratory Exam: Decreased Breath Sounds Additional comments: AT BASES - Cardiovascular Exam Cardiovascular Exam: Irregular Rhythm, +S1, +S2, Murmur - GI/Abdominal Exam GI & Abdominal Exam: Soft, Normal Bowel Sounds - Extremities Exam Extremities Exam: Pedal Edema Additional comments: SWELLING OF L KNEE, DORSUM OF HANDS - Skin Skin Exam: Normal Color, Warm Assessment and Plan (1) Acute renal failure Assessment & Plan: CREAT IMPROVING, bun HIGHER, NO UREMIC S/S NO PLANS FOR HD AT THIS TIME D/W DR ALVES, CON'T IVF CON'T TO HOLD DIURETICS Status: Acute (2) Atrial fibrillation Assessment & Plan: RATE CONTROLLED Status: Acute (3) Congestive heart failure (CHF) Assessment & Plan: COMPENSATED Status: Acute (4) Gout Assessment & Plan: STILL WITH PAIN, UNFORTUNATELY CANNOT GIVE COLCHICINE AT PRESENT CON'T PREDNISONE Status: Acute (5) Weakness Assessment & Plan: PHYSICAL THERAPY Status: Acute
[2016-12-10 14:14] VITALS: BP 110/70; PULSE 108
[2016-12-10] MEDS ORDERED: MethylPREDNISolone Depo 40 mg/ml Inj IM ONE (16:53)
[2016-12-10] MEDS ORDERED: Bupivacaine 0.5% Inj(30mL) IJ ONE (16:53)
--- NOTE | 2016-12-10 21:35 | CP.PCM.PN ---
Subjective - Date & Time of Evaluation Date of Evaluation: 12/10/16 Time of Evaluation: 17:00 - Subjective Subjective: 70 F w PMH of CHF EF 35%, CAD, COPD, DM was admitted with CHF and ANDREA. R chest wall abscess. Pt doesn't remember having lesion on her R chest. It was noticed by ID doctor. Pt had low grade fever of 100.4. Pt denies pain,chill, N,V,D, trauma, blurry vision, SOB with exertion, son at bed side feel better, tolerated C pap well last night being transfer to [facility] and feel better Objective - Vital Signs/Intake and Output Vital Signs (last 24 hours): Temp Pulse Resp BP Pulse Ox 98 F 108 H 18 110/70 95 12/10/16 12:00 12/10/16 14:08 12/10/16 12:00 12/10/16 14:08 12/10/16 06:00 Intake and Output: 12/10/16 12/11/16 18:59 06:59 Intake Total 1080 Output Total 1040 Balance 40 - Labs Labs: 12/09/16 07:45 12/10/16 05:30 - Constitutional Appears: No Acute Distress - Head Exam Head Exam: ATRAUMATIC, NORMAL INSPECTION, NORMOCEPHALIC - Eye Exam Eye Exam: EOMI, Normal appearance, PERRL - ENT Exam ENT Exam: Mucous Membranes Moist, Normal Exam - Neck Exam Neck Exam: Full ROM, Normal Inspection. absent: Lymphadenopathy - Respiratory Exam Respiratory Exam: Rales, Wheezes - Cardiovascular Exam Cardiovascular Exam: Irregular Rhythm, REGULAR RHYTHM, +S1, +S2. absent: Murmur - GI/Abdominal Exam GI & Abdominal Exam: Soft, Normal Bowel Sounds. absent: Tenderness - Extremities Exam Extremities Exam: Pedal Edema - Neurological Exam Neurological Exam: Alert, Awake, CN II-XII Intact, Normal Gait, Oriented x3 - Skin Skin Exam: Erythema Assessment and Plan (1) Pulmonary arterial hypertension Status: Chronic (2) Sleep apnea in adult Assessment & Plan: continue encourage B PAP use, sleep apnea precaution, avoid sedation Status: Chronic (3) Abscess Assessment & Plan: anti biotic and surgical follow up Status: Acute (4) Acute renal failure Assessment & Plan: follow up bun and creatine Status: Chronic (5) Atrial fibrillation Assessment & Plan: anti arrythymic and anti coagulation Status: Acute - Assessment and Plan (Free Text) Assessment: physical therapy, fall precaution
--- NOTE | 2016-12-11 23:35 | CP.PCM.PN ---
Subjective - Date & Time of Evaluation Date of Evaluation: 12/09/16 Time of Evaluation: 09:00 - Subjective Subjective: pt is seen in room , looking better , no n/v . gerd , dyspepsea , no fatigue , no fever , chills . garcia . abdominal pain .no swelling of legs Objective - Vital Signs/Intake and Output Vital Signs (last 24 hours): Temp Pulse Resp BP Pulse Ox 97 F L 75 19 125/77 100 12/09/16 18:00 12/09/16 18:00 12/09/16 18:00 12/09/16 18:00 12/09/16 06:00 - Medications Medications: Current Medications Acetaminophen (Tylenol 325mg Tab) 650 mg PO Q6H PRN PRN Reason: Fever >100.4 F Last Admin: 12/08/16 09:34 Dose: 650 mg Apixaban (Eliquis) 2.5 mg PO BID [facility] PRN Reason: Protocol Last Admin: 12/09/16 17:33 Dose: 2.5 mg Diltiazem HCl (Cardizem Cd) 120 mg PO DAILY [facility] Last Admin: 12/09/16 09:36 Dose: 120 mg Famotidine (Pepcid) 20 mg PO DAILY [facility] Last Admin: 12/09/16 09:35 Dose: 20 mg Ferrous Sulfate (Feosol) 324 mg PO DAILY [facility] Last Admin: 12/09/16 09:35 Dose: 324 mg Hydralazine HCl (Apresoline) 10 mg PO QID [facility] Last Admin: 12/09/16 17:32 Dose: 10 mg Ceftaroline Fosamil 200 mg/ (Sodium Chloride) 50 mls @ 50 mls/hr IVPB Q12H [facility] PRN Reason: Protocol Stop: 12/15/16 17:46 Last Admin: 12/09/16 17:10 Dose: 50 mls/hr Sodium Chloride (Sodium Chloride 0.45%) 1,000 mls @ 60 mls/hr IV .[id number] [facility] Last Admin: 12/09/16 14:06 Dose: 60 mls/hr Insulin Human Regular (Humulin R Low) 0 units SC ACHS [facility] PRN Reason: Protocol Last Admin: 12/09/16 16:48 Dose: Not Given Methimazole (Tapazole) 5 mg PO DAILY [facility] Last Admin: 12/09/16 09:36 Dose: 5 mg Montelukast Sodium (Singulair) 10 mg PO HS [facility] Last Admin: 12/08/16 21:45 Dose: 10 mg Mupirocin (Bactroban Ointment) 0 gm TOP BID [facility] Last Admin: 12/09/16 17:33 Dose: 1 applic Tadalafil [Adcirca] (20 Mg (Home Med)) 20 mg PO DAILY [facility] Last Admin: 12/09/16 09:36 Dose: 20 mg Pantoprazole Sodium (Protonix Ec Tab) 20 mg PO 0600 [facility] Last Admin: 12/09/16 05:49 Dose: 20 mg Prednisone (Prednisone Tab) 20 mg PO DAILY [facility] Last Admin: 12/09/16 09:35 Dose: 20 mg Sodium Bicarbonate (Sodium Bicarbonate Tab) 650 mg PO Q8 [facility] Last Admin: 12/09/16 17:32 Dose: 650 mg Verapamil HCl (Verapamil Inj) 2.5 mg IVP ONCE PRN PRN Reason: FOR heart rate >120 - Labs Labs: 12/09/16 07:45 12/09/16 07:45 - Constitutional Appears: Well, Non-toxic, No Acute Distress - Head Exam Head Exam: ATRAUMATIC, NORMAL INSPECTION, NORMOCEPHALIC - Eye Exam Eye Exam: EOMI, Normal appearance, PERRL Pupil Exam: NORMAL ACCOMODATION, PERRL - ENT Exam ENT Exam: Mucous Membranes Moist, Normal Exam, Normal External Ear Exam, Normal Oropharynx, TM's Normal Bilaterally - Respiratory Exam Respiratory Exam: Clear to Ausculation Bilateral, NORMAL BREATHING PATTERN - Cardiovascular Exam Cardiovascular Exam: REGULAR RHYTHM, +S1, +S2. absent: Murmur - Exam Exam: Circumcision, NORMAL INSPECTION, Scrotal Swelling, Testicular Tenderness, Uretheral Discharge, Testicular Vertical Lie, Bladder Distension - Extremities Exam Extremities Exam: Full ROM, Normal Inspection - Back Exam Back Exam: Full ROM - Neurological Exam Neurological Exam: Alert, Awake, CN II-XII Intact, Normal Gait, Oriented x3, Reflexes Normal - Psychiatric Exam Psychiatric exam: Normal Affect, Normal Mood - Skin Skin Exam: Dry, Normal Color Assessment and Plan - Assessment and Plan (Free Text) Assessment: 70 years lady with many problems had breast abcess , renal failfre , improving , dm , hypothyradism , obesity , cad , cardic stenting , pul. htn . htn , getting treatment with anb. by dr Sanchez cardiology and pul . on the case , cot. present teatment , repeat labs . oob , pt . d/d with n, staff
== END 2016-12-10 17:13 | DRG 682 ==
LOC: ED 08:44 → ERH 11:58 → 2RSO 12:47
PROVIDERS: ADMIT Internal Medicine; ATTEND Internal Medicine
PROC: 0H95XZX Drainage of Chest Skin, External Approach, Diagnostic (ICD-10-PCS; principal; 2016-12-08)
DX: N17.9 Acute kidney failure, unspecified (principal); I50.23 Acute on chronic systolic (congestive) heart failure; I13.0 Hypertensive heart and chronic kidney disease with heart failure and stage 1 through stage 4 chronic kidney disease, or unspecified chronic kidney disease; L02.213 Cutaneous abscess of chest wall; E11.22 Type 2 diabetes mellitus with diabetic chronic kidney disease; I42.9 Cardiomyopathy, unspecified; N39.0 Urinary tract infection, site not specified; N18.4 Chronic kidney disease, stage 4 (severe); I27.2 Other secondary pulmonary hypertension; J44.9 Chronic obstructive pulmonary disease, unspecified; I48.0 Paroxysmal atrial fibrillation; M10.9 Gout, unspecified; I25.10 Atherosclerotic heart disease of native coronary artery without angina pectoris; D63.8 Anemia in other chronic diseases classified elsewhere; G47.33 Obstructive sleep apnea (adult) (pediatric); K42.9 Umbilical hernia without obstruction or gangrene; E78.5 Hyperlipidemia, unspecified; E03.9 Hypothyroidism, unspecified; Z95.1 Presence of aortocoronary bypass graft; Z79.84 Long term (current) use of oral hypoglycemic drugs

== ENCOUNTER 2016-12-10 17:30 | Inpatient (IN) | payer OTHER ==
[2016-12-10 18:53] VITALS: BMI 28.6
[2016-12-10] MEDS: Insulin Reg-LOW-Coverage SC SCH (21:48)
[2016-12-10] MEDS: Sodium Chloride 0.45% 1,000 ML IV SCH (23:13)
[2016-12-11] MEDS: Pantoprazole 20 mg EC Tab PO SCH (05:23)
[2016-12-11] MEDS: Insulin Reg-LOW-Coverage SC SCH ×4 (06:37→21:26)
[2016-12-11 06:52] LABS: ALB/GLOB RATIO 0.9 (1.1-1.8); CALCIUM 8.9 mg/dL (8.4-10.5)
--- NOTE | 2016-12-11 07:59 | CP.PCM.CON ---
History of Present Illness - History of Present Illness History of Present Illness: DOING WELL Review of Systems - Constitutional Constitutional: Weakness Past Patient History - Infectious Disease Hx of Infectious Diseases: None - Tetanus Immunizations Tetanus Immunization: Unknown - Past Medical History & Family History Past Medical History?: Yes - Past Social History Smoking Status: Never Smoked - CARDIAC Hx Cardiac Disorders: Yes (Afib, CAD, Cardiomyopathy, MVR) Hx Congestive Heart Failure: Yes Hx Hypertension: Yes (and Pulmo HTN) - PULMONARY Hx Chronic Obstructive Pulmonary Disease (COPD): Yes - NEUROLOGICAL Hx Neurological Disorder: No - HEENT Hx HEENT Problems: Yes Other/Comment: wears glasses - RENAL Hx Renal Failure: Yes (not on hemodialysis) - ENDOCRINE/METABOLIC Hx Diabetes Mellitus Type 2: Yes Hx Hypothyroidism: Yes - HEMATOLOGICAL/ONCOLOGICAL Hx Blood Disorders: No - INTEGUMENTARY Hx Dermatological Problems: Yes Other/Comment: gout - MUSCULOSKELETAL/RHEUMATOLOGICAL Hx Falls: No Hx Gout: Yes - GASTROINTESTINAL Hx Gastrointestinal Disorders: Yes (umbilical hernia, GERD) Hx Gastroesophageal Reflux: Yes Other/Comment: umbilical hernia - GENITOURINARY/GYNECOLOGICAL Hx Genitourinary Disorders: No Hx Reproductive Disorders: No - PSYCHIATRIC Hx Psychophysiologic Disorder: No - SURGICAL HISTORY Other/Comment: MV r/p, varicose veins b/l legs - ANESTHESIA Hx Anesthesia: Yes Hx Anesthesia Reactions: No Hx Malignant Hyperthermia: No Meds Allergies/Adverse Reactions: Allergies Allergy/AdvReac Type Severity Reaction Status Date / Time No Known Allergies Allergy Verified 12/07/16 09:06 - Medications Medications: Current Medications Acetaminophen (Tylenol 325mg Tab) 650 mg PO Q6H PRN; Protocol PRN Reason: Fever >100.4 F Apixaban (Eliquis) 2.5 mg PO BID [facility] PRN Reason: Protocol Diltiazem HCl (Cardizem Cd) 120 mg PO DAILY [facility] PRN Reason: Protocol Doxycycline Hyclate (Doryx) 100 mg PO Q12 [facility] PRN Reason: Protocol Last Admin: 12/10/16 23:13 Dose: 100 mg Famotidine (Pepcid) 20 mg PO DAILY [facility] PRN Reason: Protocol Ferrous Sulfate (Feosol) 324 mg PO DAILY [facility] PRN Reason: Protocol Hydralazine HCl (Apresoline) 10 mg PO QID [facility] PRN Reason: Protocol Last Admin: 12/10/16 23:11 Dose: 10 mg Sodium Chloride (Sodium Chloride 0.45%) 1,000 mls @ 60 mls/hr IV .[id number] [facility] PRN Reason: Protocol Last Admin: 12/10/16 23:13 Dose: 60 mls/hr Insulin Human Regular (Humulin R Low) 0 units SC ACHS [facility] PRN Reason: Protocol Last Admin: 12/11/16 06:37 Dose: Not Given Methimazole (Tapazole) 5 mg PO DAILY [facility] PRN Reason: Protocol Montelukast Sodium (Singulair) 10 mg PO HS [facility] PRN Reason: Protocol Last Admin: 12/10/16 23:12 Dose: 10 mg Mupirocin (Bactroban Ointment) 0 gm TOP BID [facility] PRN Reason: Protocol Non-Formulary Medication (Tadalafil [Adcirca]) 20 mg PO DAILY [facility] Pantoprazole Sodium (Protonix Ec Tab) 20 mg PO 0600 [facility] PRN Reason: Protocol Last Admin: 12/11/16 05:23 Dose: 20 mg Prednisone (Prednisone Tab) 10 mg PO DAILY [facility] PRN Reason: Protocol Sodium Bicarbonate (Sodium Bicarbonate Tab) 650 mg PO Q8 [facility] PRN Reason: Protocol Last Admin: 12/11/16 05:23 Dose: 650 mg Physical Exam - Constitutional Appears: Well - Head Exam Head Exam: ATRAUMATIC, NORMAL INSPECTION, NORMOCEPHALIC - Eye Exam Eye Exam: EOMI, Normal appearance, PERRL Pupil Exam: NORMAL ACCOMODATION, PERRL - ENT Exam ENT Exam: Mucous Membranes Moist, Normal Exam - Neck Exam Neck exam: Positive for: Normal Inspection - Respiratory Exam Respiratory Exam: Clear to Auscultation Bilateral, NORMAL BREATHING PATTERN - Cardiovascular Exam Cardiovascular Exam: REGULAR RHYTHM - GI/Abdominal Exam GI & Abdominal Exam: Normal Bowel Sounds, Soft. absent: Tenderness - Rectal Exam Rectal Exam: NORMAL INSPECTION - Exam Exam: Circumcision, NORMAL INSPECTION External exam: NORMAL EXTERNAL EXAM Speculum exam: NORMAL SPECULUM EXAM Bimanual exam: NORMAL BIMANUAL EXAM - Extremities Exam Extremities exam: Positive for: normal inspection - Back Exam Back exam: NORMAL INSPECTION - Neurological Exam Neurological exam: Alert, CN II-XII Intact, Normal Gait, Oriented x3, Reflexes Normal - Psychiatric Exam Psychiatric exam: Normal Affect, Normal Mood - Skin Skin Exam: Dry, Intact, Normal Color, Warm Results - Vital Signs Recent Vital Signs: Last Vital Signs Temp 97.4 F L 12/10/16 21:27 Pulse 109 H 12/10/16 23:11 Resp 18 12/10/16 21:27 BP 119/72 12/10/16 23:11 Pulse Ox - Labs Result Diagrams: 12/11/16 06:30 Labs: Laboratory Results - last 24 hr 12/10/16 12/11/16 21:27 06:30 Sodium 132 Potassium 5.1 H Chloride 105 Carbon Dioxide 18 L Anion Gap 14 BUN 128 H* Creatinine 2.2 H Est GFR ( Amer) 27 Est GFR (Non-Af Amer) 22 POC Glucose (mg/dL) 156 H Random Glucose 101 Calcium 8.9 Total Bilirubin 0.5 AST 34 ALT 28 Alkaline Phosphatase 192 H Total Protein 6.4 Albumin 3.0 Globulin 3.4 Albumin/Globulin Ratio 0.9 L Assessment & Plan (1) Fever Status: Acute (2) Abscess Status: Acute (3) Acute on chronic renal failure Status: Acute (4) Chest wall abscess Status: Acute (5) Congestive heart failure (CHF) Status: Acute - Assessment and Plan (Free Text) Plan: S/P ASPIRATION OF CHEST WALL ABSCESS HAD FEVER RESOLVED COMPLETE WITH PO DOXY - Date & Time Date: 12/11/16 Time: 07:00
[2016-12-11 08:11] LABS: GRAN # 4.52 (1.4-6.5); GRAN % 85.1 % (50.0-68.0); HEMOGLOBIN 9.3 gm/dL (12.0-16.0); LYMPH # 0.5 (1.2-3.4); LYMPH % 9.8 % (22.0-35.0); MEAN CELL VOLUME 91.7 fL (80.0-105.0); MEAN CORPUSCULAR HEMOGLOBIN 29.7 pg (25.0-35.0); MEAN CORPUSCULAR HGB CONC 32.4 g/dl (31.0-37.0); MEAN PLATELET VOLUME 9.2 fl (7.0-11.0); MONO # 0.3 (0.1-0.6); MONO % 5.1 % (1.0-6.0); PLATELET COUNT 252 10^3/uL (120.0-450.0); RBC 3.13 10^6/uL (3.5-6.1); RED CELL DISTRIBUTION WIDTH 15.2 % (11.5-14.5); WHITE BLOOD COUNT 5.3 10^3/ul (4.5-11.0)
--- NOTE | 2016-12-11 09:00 | CP.PCM.CON ---
History of Present Illness - History of Present Illness History of Present Illness: 70 year old female with Hc of CKD, S/p MVR. PAF , Non ischemic CMP admitted with Acute Kidney injury and gen weakness to acute Med Floor and now tx to TCU for conituity of care., denies chest pain, SOB omn IVF. Past Patient History - Infectious Disease Hx of Infectious Diseases: None - Tetanus Immunizations Tetanus Immunization: Unknown - Past Medical History & Family History Pertinent Family History: CMP, S/P MVR. PAF. - Past Social History Smoking Status: Never Smoked - CARDIAC Hx Cardiac Disorders: Yes (Afib, CAD, Cardiomyopathy, MVR) Hx Congestive Heart Failure: Yes Hx Hypertension: Yes (and Pulmo HTN) - PULMONARY Hx Chronic Obstructive Pulmonary Disease (COPD): Yes - NEUROLOGICAL Hx Neurological Disorder: No - HEENT Hx HEENT Problems: Yes Other/Comment: wears glasses - RENAL Hx Renal Failure: Yes (not on hemodialysis) - ENDOCRINE/METABOLIC Hx Diabetes Mellitus Type 2: Yes Hx Hypothyroidism: Yes - HEMATOLOGICAL/ONCOLOGICAL Hx Blood Disorders: No - INTEGUMENTARY Hx Dermatological Problems: Yes Other/Comment: gout - MUSCULOSKELETAL/RHEUMATOLOGICAL Hx Falls: No Hx Gout: Yes - GASTROINTESTINAL Hx Gastrointestinal Disorders: Yes (umbilical hernia, GERD) Hx Gastroesophageal Reflux: Yes Other/Comment: umbilical hernia - GENITOURINARY/GYNECOLOGICAL Hx Genitourinary Disorders: No Hx Reproductive Disorders: No - PSYCHIATRIC Hx Psychophysiologic Disorder: No - SURGICAL HISTORY Other/Comment: MV r/p, varicose veins b/l legs - ANESTHESIA Hx Anesthesia: Yes Hx Anesthesia Reactions: No Hx Malignant Hyperthermia: No Meds Allergies/Adverse Reactions: Allergies Allergy/AdvReac Type Severity Reaction Status Date / Time No Known Allergies Allergy Verified 12/07/16 09:06 - Medications Medications: Current Medications Acetaminophen (Tylenol 325mg Tab) 650 mg PO Q6H PRN; Protocol PRN Reason: Fever >100.4 F Apixaban (Eliquis) 2.5 mg PO BID [facility] PRN Reason: Protocol Diltiazem HCl (Cardizem Cd) 120 mg PO DAILY [facility] PRN Reason: Protocol Doxycycline Hyclate (Doryx) 100 mg PO Q12 [facility] PRN Reason: Protocol Last Admin: 12/10/16 23:13 Dose: 100 mg Famotidine (Pepcid) 20 mg PO DAILY [facility] PRN Reason: Protocol Ferrous Sulfate (Feosol) 324 mg PO DAILY [facility] PRN Reason: Protocol Hydralazine HCl (Apresoline) 10 mg PO QID [facility] PRN Reason: Protocol Last Admin: 12/10/16 23:11 Dose: 10 mg Sodium Chloride (Sodium Chloride 0.45%) 1,000 mls @ 60 mls/hr IV .[id number] [facility] PRN Reason: Protocol Last Admin: 12/10/16 23:13 Dose: 60 mls/hr Insulin Human Regular (Humulin R Low) 0 units SC ACHS [facility] PRN Reason: Protocol Last Admin: 12/11/16 06:37 Dose: Not Given Methimazole (Tapazole) 5 mg PO DAILY [facility] PRN Reason: Protocol Montelukast Sodium (Singulair) 10 mg PO HS [facility] PRN Reason: Protocol Last Admin: 12/10/16 23:12 Dose: 10 mg Mupirocin (Bactroban Ointment) 0 gm TOP BID [facility] PRN Reason: Protocol Non-Formulary Medication (Tadalafil [Adcirca]) 20 mg PO DAILY [facility] Pantoprazole Sodium (Protonix Ec Tab) 20 mg PO 0600 [facility] PRN Reason: Protocol Last Admin: 12/11/16 05:23 Dose: 20 mg Prednisone (Prednisone Tab) 10 mg PO DAILY [facility] PRN Reason: Protocol Sodium Bicarbonate (Sodium Bicarbonate Tab) 650 mg PO Q8 [facility] PRN Reason: Protocol Last Admin: 12/11/16 05:23 Dose: 650 mg Results - Vital Signs Recent Vital Signs: Last Vital Signs Temp 97.4 F L 12/10/16 21:27 Pulse 109 H 12/10/16 23:11 Resp 18 12/10/16 21:27 BP 119/72 12/10/16 23:11 Pulse Ox - Labs Result Diagrams: 12/11/16 07:00 12/11/16 06:30 Labs: Laboratory Results - last 24 hr 12/10/16 12/11/16 12/11/16 21:27 06:30 07:00 WBC 5.3 D RBC 3.13 L Hgb 9.3 L Hct 28.7 L MCV 91.7 MCH 29.7 MCHC 32.4 RDW 15.2 H Plt Count 252 MPV 9.2 Gran % 85.1 H Lymph % (Auto) 9.8 L [place] % (Auto) 5.1 Eos % (Auto) 0.0 L Baso % (Auto) 0.0 Gran # 4.52 Lymph # 0.5 L [place] # 0.3 Eos # 0.0 Baso # 0.00 Sodium 132 Potassium 5.1 H Chloride 105 Carbon Dioxide 18 L Anion Gap 14 BUN 128 H* Creatinine 2.2 H Est GFR ( Amer) 27 Est GFR (Non-Af Amer) 22 POC Glucose (mg/dL) 156 H Random Glucose 101 Calcium 8.9 Total Bilirubin 0.5 AST 34 ALT 28 Alkaline Phosphatase 192 H Total Protein 6.4 Albumin 3.0 Globulin 3.4 Albumin/Globulin Ratio 0.9 L Assessment & Plan - Assessment and Plan (Free Text) Assessment: 70 year old Female with PAF, CMP non Ischemic acute kidney injury on CKD gen weakness Plan: trehab gentle hyration monitor lytes continue antocoag. - Date & Time Date: 12/11/16 Time: 07:45
[2016-12-11] MEDS: diltiaZEM 120 mg/24 Hours CD Cap PO SCH (11:00)
[2016-12-11] MEDS: methIMAzole 5 MG TAB PO SCH (11:02)
--- NOTE | 2016-12-11 12:26 | CP.PCM.PCO ---
Physician Communication Note - Physician Communication Note Physician Communication Note: Cellulitis-Cyst chest wall/Resolving now-No surgery needed!
[2016-12-11 16:45] VITALS: O2SAT 98
--- NOTE | 2016-12-11 18:11 | CP.PCM.CON ---
History of Present Illness - History of Present Illness History of Present Illness: 70 F w PMH of CHF EF 35%, CAD, COPD, DM was admitted with CHF and ANDREA. R chest wall abscess. Pt doesn't remember having lesion on her R chest. It was noticed by ID doctor. Pt had low grade fever of 100.4. Pt denies pain,chill, N,V,D, trauma, blurry vision, SOB with exertion, now admitted to [facility] for continue care, out of bed to chair, tolerated B PAP well. complaining about multiple joint pain Review of Systems - Constitutional Constitutional: Daytime Sleepiness, Fatigue, Lethargy, Snoring, Sleep Apnea - EENT Eyes: absent: Blurred Vision, Diplopia, Discharge Ears: absent: Ear Discharge, Ear Pain Nose/Mouth/Throat: absent: Epistaxis, Nasal Congestion, Nasal Discharge - Cardiovascular Cardiovascular: Dyspnea, Edema, Leg Edema. absent: Chest Pain, Claudication, Diaphoresis - Respiratory Respiratory: Cough, Dyspnea, Dyspnea on Exertion, Wheezing, Snoring, Chest Congestion. absent: Hemoptysis - Gastrointestinal Gastrointestinal: absent: Diarrhea, Dyspepsia, Dysphagia, Excessive Flatus - Genitourinary Genitourinary: absent: Hematuria, Pyuria, Nocturia - Musculoskeletal Musculoskeletal: Deformity, Joint Swelling, Limited Range of Motion, Muscle Weakness, Myalgias. absent: Arthralgias, Atrophy, Back Pain, Muscle Cramps - Integumentary Integumentary: absent: Rash, Skin Pain - Neurological Neurological: absent: Headaches, Lack of Coordination, Loss of Vision, Radicular Pain - Psychiatric Psychiatric: absent: Hopelessness, Irritability, Panic Attacks, Paranoia - Endocrine Endocrine: absent: Change in Body Appearance, Change in Libido Past Patient History - Infectious Disease Hx of Infectious Diseases: None - Tetanus Immunizations Tetanus Immunization: Unknown - Past Medical History & Family History Past Medical History?: Yes - Past Social History Smoking Status: Never Smoked - CARDIAC Hx Cardiac Disorders: Yes Hx Congestive Heart Failure: Yes Hx Hypertension: Yes - PULMONARY Hx Chronic Obstructive Pulmonary Disease (COPD): Yes - NEUROLOGICAL Hx Neurological Disorder: No - HEENT Hx HEENT Problems: Yes Other/Comment: wears glasses - RENAL Hx Renal Failure: Yes - ENDOCRINE/METABOLIC Hx Diabetes Mellitus Type 2: Yes Hx Hypothyroidism: Yes - HEMATOLOGICAL/ONCOLOGICAL Hx Blood Disorders: No - INTEGUMENTARY Hx Dermatological Problems: Yes Other/Comment: gout - MUSCULOSKELETAL/RHEUMATOLOGICAL Hx Falls: No Hx Gout: Yes - GASTROINTESTINAL Hx Gastrointestinal Disorders: Yes (umbilical hernia, GERD) Hx Gastroesophageal Reflux: Yes Other/Comment: umbilical hernia - GENITOURINARY/GYNECOLOGICAL Hx Genitourinary Disorders: No Hx Reproductive Disorders: No - PSYCHIATRIC Hx Psychophysiologic Disorder: No - SURGICAL HISTORY Other/Comment: MV r/p, varicose veins b/l legs - ANESTHESIA Hx Anesthesia: Yes Hx Anesthesia Reactions: No Hx Malignant Hyperthermia: No Meds Allergies/Adverse Reactions: Allergies Allergy/AdvReac Type Severity Reaction Status Date / Time No Known Allergies Allergy Verified 12/07/16 09:06 - Medications Medications: Current Medications Acetaminophen (Tylenol 325mg Tab) 650 mg PO Q6H PRN; Protocol PRN Reason: Fever >100.4 F Apixaban (Eliquis) 2.5 mg PO BID [facility] PRN Reason: Protocol Last Admin: 12/11/16 11:01 Dose: 2.5 mg Diltiazem HCl (Cardizem Cd) 120 mg PO DAILY [facility] PRN Reason: Protocol Last Admin: 12/11/16 11:00 Dose: 120 mg Doxycycline Hyclate (Doryx) 100 mg PO Q12 [facility] PRN Reason: Protocol Last Admin: 12/11/16 11:01 Dose: 100 mg Famotidine (Pepcid) 20 mg PO DAILY [facility] PRN Reason: Protocol Last Admin: 12/11/16 11:02 Dose: 20 mg Ferrous Sulfate (Feosol) 324 mg PO DAILY [facility] PRN Reason: Protocol Last Admin: 12/11/16 11:01 Dose: 324 mg Hydralazine HCl (Apresoline) 10 mg PO QID [facility] PRN Reason: Protocol Last Admin: 12/11/16 13:59 Dose: 10 mg Sodium Chloride (Sodium Chloride 0.45%) 1,000 mls @ 60 mls/hr IV .[id number] [facility] PRN Reason: Protocol Last Admin: 12/10/16 23:13 Dose: 60 mls/hr Insulin Human Regular (Humulin R Low) 0 units SC ACHS [facility] PRN Reason: Protocol Last Admin: 12/11/16 12:03 Dose: Not Given Methimazole (Tapazole) 5 mg PO DAILY [facility] PRN Reason: Protocol Last Admin: 06/30/17 11:02 Dose: 5 mg Montelukast Sodium (Singulair) 10 mg PO HS [facility] PRN Reason: Protocol Last Admin: 12/10/16 23:12 Dose: 10 mg Mupirocin (Bactroban Ointment) 0 gm TOP BID [facility] PRN Reason: Protocol Last Admin: 12/11/16 10:59 Dose: 1 units Non-Formulary Medication (Tadalafil [Adcirca]) 20 mg PO DAILY [facility] Last Admin: 12/11/16 11:02 Dose: 20 mg Pantoprazole Sodium (Protonix Ec Tab) 20 mg PO 0600 [facility] PRN Reason: Protocol Last Admin: 12/11/16 05:23 Dose: 20 mg Prednisone (Prednisone Tab) 10 mg PO DAILY [facility] PRN Reason: Protocol Last Admin: 12/11/16 11:02 Dose: 10 mg Sodium Bicarbonate (Sodium Bicarbonate Tab) 650 mg PO Q8 [facility] PRN Reason: Protocol Last Admin: 12/11/16 14:04 Dose: 650 mg Physical Exam - Constitutional Appears: In Acute Distress - Head Exam Head Exam: ATRAUMATIC, NORMAL INSPECTION, NORMOCEPHALIC - Eye Exam Eye Exam: EOMI, Normal appearance, PERRL Pupil Exam: NORMAL ACCOMODATION, PERRL - ENT Exam ENT Exam: Mucous Membranes Moist, Normal Exam - Neck Exam Neck exam: Positive for: Normal Inspection - Respiratory Exam Respiratory Exam: Rales, Rhonchi - Cardiovascular Exam Cardiovascular Exam: Irregular Rhythm - GI/Abdominal Exam GI & Abdominal Exam: absent: Distended, Firm, Guarding - Exam Exam: Circumcision, NORMAL INSPECTION External exam: NORMAL EXTERNAL EXAM Speculum exam: NORMAL SPECULUM EXAM Bimanual exam: NORMAL BIMANUAL EXAM - Extremities Exam Extremities exam: Positive for: joint swelling, normal capillary refill, tenderness - Neurological Exam Neurological exam: Alert, CN II-XII Intact, Normal Gait, Oriented x3, Reflexes Normal Results - Vital Signs Recent Vital Signs: Last Vital Signs Temp 97.5 F L 12/11/16 16:00 Pulse 113 H 12/11/16 16:00 Resp 20 12/11/16 16:00 BP 123/75 12/11/16 16:00 Pulse Ox 98 12/11/16 16:00 - Labs Result Diagrams: 12/11/16 07:00 12/11/16 06:30 Labs: Laboratory Results - last 24 hr 12/10/16 12/11/16 12/11/16 21:27 06:30 07:00 WBC 5.3 D RBC 3.13 L Hgb 9.3 L Hct 28.7 L MCV 91.7 MCH 29.7 MCHC 32.4 RDW 15.2 H Plt Count 252 MPV 9.2 Gran % 85.1 H Lymph % (Auto) 9.8 L [place] % (Auto) 5.1 Eos % (Auto) 0.0 L Baso % (Auto) 0.0 Gran # 4.52 Lymph # 0.5 L [place] # 0.3 Eos # 0.0 Baso # 0.00 Sodium 132 Potassium 5.1 H Chloride 105 Carbon Dioxide 18 L Anion Gap 14 BUN 128 H* Creatinine 2.2 H Est GFR ( Amer) 27 Est GFR (Non-Af Amer) 22 POC Glucose (mg/dL) 156 H Random Glucose 101 Calcium 8.9 Total Bilirubin 0.5 AST 34 ALT 28 Alkaline Phosphatase 192 H Total Protein 6.4 Albumin 3.0 Globulin 3.4 Albumin/Globulin Ratio 0.9 L Assessment & Plan (1) Pulmonary hypertension Assessment and Plan: c pap while sleeping, letaris, diuretic Status: Acute (2) Abscess Assessment and Plan: s/p drainage and antibiotics Status: Acute (3) Acute on chronic renal failure Assessment and Plan: follow bun/creatinin, avoid nephro toxic drugs Status: Acute (4) Atrial fibrillation Assessment and Plan: on cardiazem and anti coagulation Status: Acute (5) SALLY (obstructive sleep apnea) Assessment and Plan: c pap while sleeping, avoid sedation Status: Acute (6) Cardiomyopathy Assessment and Plan: diuretic after load Status: Acute (7) Arthritis, multiple joint involvement Assessment and Plan: add prednoson 10 mg daily Status: Acute
[2016-12-12] MEDS: Pantoprazole 20 mg EC Tab PO SCH (05:50)
[2016-12-12] MEDS: Insulin Reg-LOW-Coverage SC SCH ×3 (06:46→22:00)
[2016-12-12 07:12] LABS: CALCIUM 8.8 mg/dL (8.4-10.5); MAGNESIUM 2.6 mg/dL (1.7-2.2)
[2016-12-12] MEDS: diltiaZEM 120 mg/24 Hours CD Cap PO SCH (10:02)
[2016-12-12] MEDS: methIMAzole 5 MG TAB PO SCH (10:04)
--- NOTE | 2016-12-12 10:48 | CP.PCM.PN ---
Subjective - Date & Time of Evaluation Date of Evaluation: 12/12/16 Time of Evaluation: 07:40 - Subjective Subjective: WEAK Objective - Vital Signs/Intake and Output Vital Signs (last 24 hours): Temp Pulse Resp BP Pulse Ox 97.6 F 81 18 110/56 L 98 12/12/16 05:46 12/12/16 10:02 12/12/16 05:46 12/12/16 10:02 12/12/16 05:46 - Medications Medications: Current Medications Acetaminophen (Tylenol 325mg Tab) 650 mg PO Q6H PRN; Protocol PRN Reason: Fever >100.4 F Apixaban (Eliquis) 2.5 mg PO BID [facility] PRN Reason: Protocol Last Admin: 12/12/16 10:02 Dose: 2.5 mg Diltiazem HCl (Cardizem Cd) 120 mg PO DAILY [facility] PRN Reason: Protocol Last Admin: 12/12/16 10:02 Dose: 120 mg Doxycycline Hyclate (Doryx) 100 mg PO Q12 [facility] PRN Reason: Protocol Last Admin: 12/12/16 10:01 Dose: 100 mg Famotidine (Pepcid) 20 mg PO DAILY [facility] PRN Reason: Protocol Last Admin: 12/12/16 10:03 Dose: 20 mg Ferrous Sulfate (Feosol) 324 mg PO DAILY [facility] PRN Reason: Protocol Last Admin: 12/12/16 10:03 Dose: 324 mg Hydralazine HCl (Apresoline) 10 mg PO QID [facility] PRN Reason: Protocol Last Admin: 12/12/16 10:01 Dose: 10 mg Sodium Chloride (Sodium Chloride 0.45%) 1,000 mls @ 60 mls/hr IV .[id number] [facility] PRN Reason: Protocol Last Admin: 12/10/16 23:13 Dose: 60 mls/hr Insulin Human Regular (Humulin R Low) 0 units SC ACHS [facility] PRN Reason: Protocol Last Admin: 12/12/16 06:46 Dose: Not Given Methimazole (Tapazole) 5 mg PO DAILY [facility] PRN Reason: Protocol Last Admin: 12/12/16 10:04 Dose: 5 mg Montelukast Sodium (Singulair) 10 mg PO HS [facility] PRN Reason: Protocol Last Admin: 12/11/16 21:26 Dose: 10 mg Mupirocin (Bactroban Ointment) 0 gm TOP BID [facility] PRN Reason: Protocol Last Admin: 12/12/16 10:00 Dose: 1 units Non-Formulary Medication (Tadalafil [Adcirca]) 20 mg PO DAILY [facility] Last Admin: 12/12/16 10:06 Dose: 20 mg Pantoprazole Sodium (Protonix Ec Tab) 20 mg PO 0600 [facility] PRN Reason: Protocol Last Admin: 12/12/16 05:50 Dose: 20 mg Prednisone (Prednisone Tab) 10 mg PO DAILY [facility] PRN Reason: Protocol Last Admin: 12/12/16 10:03 Dose: 10 mg Sodium Bicarbonate (Sodium Bicarbonate Tab) 650 mg PO Q8 [facility] PRN Reason: Protocol Last Admin: 12/11/16 21:27 Dose: 650 mg - Labs Labs: 12/11/16 07:00 12/12/16 06:40 - Constitutional Appears: Well - Head Exam Head Exam: ATRAUMATIC, NORMAL INSPECTION, NORMOCEPHALIC - Eye Exam Eye Exam: EOMI, Normal appearance, PERRL Pupil Exam: NORMAL ACCOMODATION, PERRL - ENT Exam ENT Exam: Mucous Membranes Moist, Normal Exam - Neck Exam Neck Exam: Full ROM, Normal Inspection. absent: Lymphadenopathy - Respiratory Exam Respiratory Exam: Clear to Ausculation Bilateral, NORMAL BREATHING PATTERN - Cardiovascular Exam Cardiovascular Exam: REGULAR RHYTHM, +S1, +S2. absent: Murmur - GI/Abdominal Exam GI & Abdominal Exam: Soft, Normal Bowel Sounds. absent: Tenderness - Rectal Exam Rectal Exam: NORMAL INSPECTION - Exam Exam: Circumcision, NORMAL INSPECTION External exam: NORMAL EXTERNAL EXAM Speculum exam: NORMAL SPECULUM EXAM Bimanual exam: NORMAL BIMANUAL EXAM - Extremities Exam Extremities Exam: Full ROM, Normal Capillary Refill, Normal Inspection. absent : Joint Swelling, Pedal Edema - Back Exam Back Exam: NORMAL INSPECTION - Neurological Exam Neurological Exam: Alert, Awake, CN II-XII Intact, Normal Gait, Oriented x3 - Psychiatric Exam Psychiatric exam: Normal Affect, Normal Mood - Skin Skin Exam: Dry, Intact, Normal Color, Warm Assessment and Plan (1) Fever Status: Acute (2) Abscess Status: Acute (3) Acute on chronic renal failure Status: Acute (4) Chest wall abscess Status: Acute (5) Congestive heart failure (CHF) Status: Acute - Assessment and Plan (Free Text) Plan: PO DOXY
[2016-12-12] MEDS: Sodium Chloride 0.45% 1,000 ML IV SCH (23:30)
--- NOTE | 2016-12-13 00:01 | CP.PCM.HP ---
History of Present Illness - History of Present Illness History of Present Illness: 12/11/16. cc knee pains , fatigue . 70 years old lady with pmh of multiple medical problems , was admitted in [facility] [place], acute site for ri , improved , transfer to [facility]cu for decond . looking comfortable . patria is beter . Present on Admission - Present on Admission Any Indicators Present on Admission: No Past Patient History - Infectious Disease Hx of Infectious Diseases: None - Tetanus Immunizations Tetanus Immunization: Unknown - Past Medical History & Family History Past Medical History?: Yes - Past Social History Smoking Status: Never Smoked - CARDIAC Hx Cardiac Disorders: Yes Hx Congestive Heart Failure: Yes Hx Hypertension: Yes - PULMONARY Hx Chronic Obstructive Pulmonary Disease (COPD): Yes - NEUROLOGICAL Hx Neurological Disorder: No - HEENT Hx HEENT Problems: Yes Other/Comment: wears glasses - RENAL Hx Renal Failure: Yes - ENDOCRINE/METABOLIC Hx Diabetes Mellitus Type 2: Yes Hx Hypothyroidism: Yes - HEMATOLOGICAL/ONCOLOGICAL Hx Blood Disorders: No - INTEGUMENTARY Hx Dermatological Problems: Yes Other/Comment: gout - MUSCULOSKELETAL/RHEUMATOLOGICAL Hx Falls: No Hx Gout: Yes - GASTROINTESTINAL Hx Gastrointestinal Disorders: Yes (umbilical hernia, GERD) Hx Gastroesophageal Reflux: Yes Other/Comment: umbilical hernia - GENITOURINARY/GYNECOLOGICAL Hx Genitourinary Disorders: No Hx Reproductive Disorders: No - PSYCHIATRIC Hx Psychophysiologic Disorder: No - SURGICAL HISTORY Other/Comment: MV r/p, varicose veins b/l legs - ANESTHESIA Hx Anesthesia: Yes Hx Anesthesia Reactions: No Hx Malignant Hyperthermia: No Meds Allergies/Adverse Reactions: Allergies Allergy/AdvReac Type Severity Reaction Status Date / Time No Known Allergies Allergy Verified 12/07/16 09:06 Results - Vital Signs Recent Vital Signs: Last Vital Signs Temp 98.3 F 12/11/16 10:00 Pulse 100 H 12/11/16 13:59 Resp 20 12/11/16 10:00 BP 119/77 12/11/16 13:59 Pulse Ox 100 12/11/16 10:00 - Labs Result Diagrams: 12/11/16 07:00 12/12/16 06:40 Labs: Laboratory Results - last 24 hr 12/10/16 12/11/16 12/11/16 21:27 06:30 07:00 WBC 5.3 D RBC 3.13 L Hgb 9.3 L Hct 28.7 L MCV 91.7 MCH 29.7 MCHC 32.4 RDW 15.2 H Plt Count 252 MPV 9.2 Gran % 85.1 H Lymph % (Auto) 9.8 L [place] % (Auto) 5.1 Eos % (Auto) 0.0 L Baso % (Auto) 0.0 Gran # 4.52 Lymph # 0.5 L [place] # 0.3 Eos # 0.0 Baso # 0.00 Sodium 132 Potassium 5.1 H Chloride 105 Carbon Dioxide 18 L Anion Gap 14 BUN 128 H* Creatinine 2.2 H Est GFR ( Amer) 27 Est GFR (Non-Af Amer) 22 POC Glucose (mg/dL) 156 H Random Glucose 101 Calcium 8.9 Total Bilirubin 0.5 AST 34 ALT 28 Alkaline Phosphatase 192 H Total Protein 6.4 Albumin 3.0 Globulin 3.4 Albumin/Globulin Ratio 0.9 L Assessment & Plan - Assessment and Plan (Free Text) Assessment: 70 years lady with multiple problems had cmp, pul htn , copd [place] , ri decond. htn . gouty artritis . getting pt , ot
--- NOTE | 2016-12-13 00:18 | CP.PCM.PN ---
Subjective - Date & Time of Evaluation Date of Evaluation: 12/12/16 Time of Evaluation: 01:00 - Subjective Subjective: 70 years old lady , with h/o multiple medical problems , [place] [facility] [place] . got better transfer to [facility]cu , getting pt ,ot . no n. v. d. , no sob . no garcia . c/o of b/l knee pain , orho is on the case Objective - Vital Signs/Intake and Output Vital Signs (last 24 hours): Temp Pulse Resp BP Pulse Ox 97.6 F 80 18 142/81 98 12/12/16 05:46 12/12/16 21:48 12/12/16 05:46 12/12/16 21:48 12/12/16 05:46 - Medications Medications: Current Medications Acetaminophen (Tylenol 325mg Tab) 650 mg PO Q6H PRN; Protocol PRN Reason: Fever >100.4 F Apixaban (Eliquis) 2.5 mg PO BID [facility] PRN Reason: Protocol Last Admin: 12/12/16 10:02 Dose: 2.5 mg Diltiazem HCl (Cardizem Cd) 120 mg PO DAILY [facility] PRN Reason: Protocol Last Admin: 12/12/16 10:02 Dose: 120 mg Doxycycline Hyclate (Doryx) 100 mg PO Q12 [facility] PRN Reason: Protocol Last Admin: 12/12/16 21:48 Dose: 100 mg Famotidine (Pepcid) 20 mg PO DAILY [facility] PRN Reason: Protocol Last Admin: 12/12/16 10:03 Dose: 20 mg Ferrous Sulfate (Feosol) 324 mg PO DAILY [facility] PRN Reason: Protocol Last Admin: 12/12/16 10:03 Dose: 324 mg Hydralazine HCl (Apresoline) 10 mg PO QID [facility] PRN Reason: Protocol Last Admin: 12/12/16 21:48 Dose: 10 mg Sodium Chloride (Sodium Chloride 0.45%) 1,000 mls @ 60 mls/hr IV .[id number] [facility] PRN Reason: Protocol Last Admin: 12/10/16 23:13 Dose: 60 mls/hr Insulin Human Regular (Humulin R Low) 0 units SC ACHS [facility] PRN Reason: Protocol Last Admin: 12/12/16 12:08 Dose: Not Given Methimazole (Tapazole) 5 mg PO DAILY [facility] PRN Reason: Protocol Last Admin: 12/12/16 10:04 Dose: 5 mg Montelukast Sodium (Singulair) 10 mg PO HS [facility] PRN Reason: Protocol Last Admin: 12/12/16 21:48 Dose: 10 mg Mupirocin (Bactroban Ointment) 0 gm TOP BID [facility] PRN Reason: Protocol Last Admin: 12/12/16 10:00 Dose: 1 units Non-Formulary Medication (Tadalafil [Adcirca]) 20 mg PO DAILY [facility] Last Admin: 12/12/16 10:06 Dose: 20 mg Pantoprazole Sodium (Protonix Ec Tab) 20 mg PO 0600 [facility] PRN Reason: Protocol Last Admin: 12/12/16 05:50 Dose: 20 mg Prednisone (Prednisone Tab) 10 mg PO DAILY [facility] PRN Reason: Protocol Last Admin: 12/12/16 10:03 Dose: 10 mg Sodium Bicarbonate (Sodium Bicarbonate Tab) 650 mg PO Q8 [facility] PRN Reason: Protocol Last Admin: 12/12/16 21:48 Dose: 650 mg - Labs Labs: 12/11/16 07:00 12/12/16 06:40 - Constitutional Appears: Well - Head Exam Head Exam: ATRAUMATIC, NORMAL INSPECTION, NORMOCEPHALIC - Eye Exam Eye Exam: EOMI, Normal appearance, PERRL Pupil Exam: NORMAL ACCOMODATION, PERRL - ENT Exam ENT Exam: Mucous Membranes Moist, Normal Exam - Neck Exam Neck Exam: Full ROM, Normal Inspection. absent: Lymphadenopathy - Respiratory Exam Respiratory Exam: Clear to Ausculation Bilateral, NORMAL BREATHING PATTERN - Cardiovascular Exam Cardiovascular Exam: REGULAR RHYTHM, +S1, +S2. absent: Murmur - GI/Abdominal Exam GI & Abdominal Exam: Soft, Normal Bowel Sounds. absent: Tenderness - Rectal Exam Rectal Exam: Deferred - Extremities Exam Extremities Exam: Full ROM, Normal Capillary Refill, Normal Inspection. absent : Joint Swelling, Pedal Edema - Back Exam Back Exam: NORMAL INSPECTION - Neurological Exam Neurological Exam: Alert, Awake, CN II-XII Intact, Normal Gait, Oriented x3 - Psychiatric Exam Psychiatric exam: Normal Affect, Normal Mood - Skin Skin Exam: Dry, Intact, Normal Color, Warm Assessment and Plan (1) Arthritis, multiple joint involvement Status: Acute (2) Cardiomyopathy Status: Acute (3) Fever Assessment & Plan: improved Status: Acute (4) SALLY (obstructive sleep apnea) Status: Acute (5) Pulmonary hypertension Status: Acute (6) Abscess Status: Acute (7) Acute coronary syndrome Status: Acute (8) Acute on chronic renal failure Status: Acute - Assessment and Plan (Free Text) Assessment: as above . ortho . pul. and cardiology is on the case , getting pt . ot
--- NOTE | 2016-12-13 00:52 | CP.PCM.PN ---
Subjective - Date & Time of Evaluation Date of Evaluation: 12/12/16 Time of Evaluation: 15:00 - Subjective Subjective: 70 F w PMH of CHF EF 35%, CAD, COPD, DM was admitted with CHF and ANDREA. R chest wall abscess. Pt doesn't remember having lesion on her R chest. It was noticed by ID doctor. Pt had low grade fever of 100.4. Pt denies pain,chill, N,V,D, trauma, blurry vision, SOB with exertion, now admitted to [facility] for continue care, out of bed to chair, tolerated B PAP well. joint pain better Objective - Vital Signs/Intake and Output Vital Signs (last 24 hours): Temp Pulse Resp BP Pulse Ox 97.6 F 80 18 142/81 98 12/12/16 05:46 12/12/16 21:48 12/12/16 05:46 12/12/16 21:48 12/12/16 05:46 - Medications Medications: Current Medications Acetaminophen (Tylenol 325mg Tab) 650 mg PO Q6H PRN; Protocol PRN Reason: Fever >100.4 F Apixaban (Eliquis) 2.5 mg PO BID [facility] PRN Reason: Protocol Last Admin: 12/12/16 10:02 Dose: 2.5 mg Diltiazem HCl (Cardizem Cd) 120 mg PO DAILY [facility] PRN Reason: Protocol Last Admin: 12/12/16 10:02 Dose: 120 mg Doxycycline Hyclate (Doryx) 100 mg PO Q12 [facility] PRN Reason: Protocol Last Admin: 12/12/16 21:48 Dose: 100 mg Famotidine (Pepcid) 20 mg PO DAILY [facility] PRN Reason: Protocol Last Admin: 12/12/16 10:03 Dose: 20 mg Ferrous Sulfate (Feosol) 324 mg PO DAILY [facility] PRN Reason: Protocol Last Admin: 12/12/16 10:03 Dose: 324 mg Hydralazine HCl (Apresoline) 10 mg PO QID [facility] PRN Reason: Protocol Last Admin: 12/12/16 21:48 Dose: 10 mg Sodium Chloride (Sodium Chloride 0.45%) 1,000 mls @ 60 mls/hr IV .[id number] [facility] PRN Reason: Protocol Last Admin: 12/10/16 23:13 Dose: 60 mls/hr Insulin Human Regular (Humulin R Low) 0 units SC ACHS [facility] PRN Reason: Protocol Last Admin: 12/12/16 12:08 Dose: Not Given Methimazole (Tapazole) 5 mg PO DAILY [facility] PRN Reason: Protocol Last Admin: 12/12/16 10:04 Dose: 5 mg Montelukast Sodium (Singulair) 10 mg PO HS [facility] PRN Reason: Protocol Last Admin: 12/12/16 21:48 Dose: 10 mg Mupirocin (Bactroban Ointment) 0 gm TOP BID [facility] PRN Reason: Protocol Last Admin: 12/12/16 10:00 Dose: 1 units Non-Formulary Medication (Tadalafil [Adcirca]) 20 mg PO DAILY [facility] Last Admin: 12/12/16 10:06 Dose: 20 mg Pantoprazole Sodium (Protonix Ec Tab) 20 mg PO 0600 [facility] PRN Reason: Protocol Last Admin: 12/12/16 05:50 Dose: 20 mg Prednisone (Prednisone Tab) 10 mg PO DAILY [facility] PRN Reason: Protocol Last Admin: 12/12/16 10:03 Dose: 10 mg Sodium Bicarbonate (Sodium Bicarbonate Tab) 650 mg PO Q8 [facility] PRN Reason: Protocol Last Admin: 12/12/16 21:48 Dose: 650 mg - Labs Labs: 12/11/16 07:00 12/12/16 06:40 - Constitutional Appears: In Acute Distress - Head Exam Head Exam: ATRAUMATIC, NORMAL INSPECTION, NORMOCEPHALIC - Eye Exam Eye Exam: EOMI, Normal appearance, PERRL Pupil Exam: NORMAL ACCOMODATION, PERRL - ENT Exam ENT Exam: Mucous Membranes Moist, Normal Exam - Neck Exam Neck Exam: Full ROM, Normal Inspection. absent: Lymphadenopathy - Respiratory Exam Respiratory Exam: Rales, Rhonchi - Cardiovascular Exam Cardiovascular Exam: Irregular Rhythm - GI/Abdominal Exam GI & Abdominal Exam: Soft, Normal Bowel Sounds. absent: Tenderness - Extremities Exam Extremities Exam: Joint Swelling, Normal Capillary Refill, Pedal Edema, Tenderness - Neurological Exam Neurological Exam: Alert, Awake, CN II-XII Intact, Normal Gait, Oriented x3 - Psychiatric Exam Psychiatric exam: Anxious - Skin Skin Exam: Erythema Assessment and Plan (1) Pulmonary hypertension Assessment & Plan: pulmonary vasodilators, oxygen, c pap Status: Acute (2) Abscess Assessment & Plan: improve Status: Acute (3) Acute on chronic renal failure Assessment & Plan: follow up bun and creatinin Status: Acute (4) Atrial fibrillation Assessment & Plan: anticoagulation, with controle rate Status: Acute (5) SALLY (obstructive sleep apnea) Assessment & Plan: c pap Status: Acute (6) Cardiomyopathy Assessment & Plan: 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
[2016-12-13] MEDS: Pantoprazole 20 mg EC Tab PO SCH (05:37)
[2016-12-13] MEDS: Sodium Chloride 0.45% 1,000 ML IV SCH ×2 (05:38→21:37)
[2016-12-13] MEDS: Insulin Reg-LOW-Coverage SC SCH ×4 (06:39→22:00)
[2016-12-13 07:25] LABS: MAGNESIUM 2.5 mg/dL (1.7-2.2)
[2016-12-13] MEDS ORDERED: Oxycodone/Acetaminophen 5/325 mg Tab PO PRN (08:42)
[2016-12-13] MEDS: diltiaZEM 120 mg/24 Hours CD Cap PO SCH (09:39)
[2016-12-13] MEDS: methIMAzole 5 MG TAB PO SCH (09:41)
--- NOTE | 2016-12-13 10:41 | CP.PCM.PN ---
Subjective - Date & Time of Evaluation Date of Evaluation: 12/13/16 Time of Evaluation: 15:00 - Subjective Subjective: DOING WELL Objective - Vital Signs/Intake and Output Vital Signs (last 24 hours): Temp Pulse Resp BP Pulse Ox 98.3 F 79 20 134/68 98 12/13/16 08:35 12/13/16 08:35 12/13/16 08:35 12/13/16 09:39 12/12/16 05:46 - Medications Medications: Current Medications Acetaminophen (Tylenol 325mg Tab) 650 mg PO Q6H PRN; Protocol PRN Reason: Fever >100.4 F Apixaban (Eliquis) 2.5 mg PO BID [facility] PRN Reason: Protocol Last Admin: 12/13/16 09:40 Dose: 2.5 mg Diltiazem HCl (Cardizem Cd) 120 mg PO DAILY [facility] PRN Reason: Protocol Last Admin: 12/13/16 09:39 Dose: 120 mg Famotidine (Pepcid) 20 mg PO DAILY [facility] PRN Reason: Protocol Last Admin: 12/13/16 09:40 Dose: 20 mg Ferrous Sulfate (Feosol) 324 mg PO DAILY [facility] PRN Reason: Protocol Last Admin: 12/13/16 09:40 Dose: 324 mg Hydralazine HCl (Apresoline) 10 mg PO QID [facility] PRN Reason: Protocol Last Admin: 12/13/16 09:38 Dose: 10 mg Sodium Chloride (Sodium Chloride 0.45%) 1,000 mls @ 60 mls/hr IV .[id number] [facility] PRN Reason: Protocol Last Admin: 12/13/16 05:38 Dose: 60 mls/hr Insulin Human Regular (Humulin R Low) 0 units SC ACHS [facility] PRN Reason: Protocol Last Admin: 12/13/16 06:39 Dose: Not Given Methimazole (Tapazole) 5 mg PO DAILY [facility] PRN Reason: Protocol Last Admin: 12/13/16 09:41 Dose: 5 mg Montelukast Sodium (Singulair) 10 mg PO HS [facility] PRN Reason: Protocol Last Admin: 12/12/16 21:48 Dose: 10 mg Mupirocin (Bactroban Ointment) 0 gm TOP BID [facility] PRN Reason: Protocol Last Admin: 12/13/16 09:38 Dose: 1 applic Non-Formulary Medication (Tadalafil [Adcirca]) 20 mg PO DAILY [facility] Last Admin: 12/13/16 09:41 Dose: 20 mg Oxycodone/Acetaminophen (Percocet 5/325 Mg Tab) 1 tab PO TID PRN PRN Reason: Pain, moderate (4-7) Stop: 12/16/16 10:01 Pantoprazole Sodium (Protonix Ec Tab) 20 mg PO 0600 [facility] PRN Reason: Protocol Last Admin: 12/13/16 05:37 Dose: 20 mg Prednisone (Prednisone Tab) 10 mg PO DAILY [facility] PRN Reason: Protocol Last Admin: 12/13/16 09:40 Dose: 10 mg Sodium Bicarbonate (Sodium Bicarbonate Tab) 650 mg PO Q8 [facility] PRN Reason: Protocol Last Admin: 12/13/16 05:37 Dose: 650 mg - Labs Labs: 12/11/16 07:00 12/13/16 06:45 - Constitutional Appears: Well - Head Exam Head Exam: ATRAUMATIC, NORMAL INSPECTION, NORMOCEPHALIC - Eye Exam Eye Exam: EOMI, Normal appearance, PERRL Pupil Exam: NORMAL ACCOMODATION, PERRL - ENT Exam ENT Exam: Mucous Membranes Moist, Normal Exam - Neck Exam Neck Exam: Full ROM, Normal Inspection. absent: Lymphadenopathy - Respiratory Exam Respiratory Exam: Clear to Ausculation Bilateral, NORMAL BREATHING PATTERN - Cardiovascular Exam Cardiovascular Exam: REGULAR RHYTHM, +S1, +S2. absent: Murmur - GI/Abdominal Exam GI & Abdominal Exam: Soft, Normal Bowel Sounds. absent: Tenderness - Rectal Exam Rectal Exam: NORMAL INSPECTION - Exam Exam: Circumcision, NORMAL INSPECTION External exam: NORMAL EXTERNAL EXAM Speculum exam: NORMAL SPECULUM EXAM Bimanual exam: NORMAL BIMANUAL EXAM - Extremities Exam Extremities Exam: Full ROM, Normal Capillary Refill, Normal Inspection. absent : Joint Swelling, Pedal Edema - Back Exam Back Exam: NORMAL INSPECTION - Neurological Exam Neurological Exam: Alert, Awake, CN II-XII Intact, Normal Gait, Oriented x3 - Psychiatric Exam Psychiatric exam: Normal Affect, Normal Mood - Skin Skin Exam: Dry, Intact, Normal Color, Warm Assessment and Plan (1) Fever Status: Acute (2) Abscess Status: Acute (3) Acute on chronic renal failure Status: Acute (4) Chest wall abscess Status: Acute (5) Congestive heart failure (CHF) Status: Acute - Assessment and Plan (Free Text) Plan: D/ DOXY
--- NOTE | 2016-12-13 13:47 | CP.PCM.PN ---
Subjective - Date & Time of Evaluation Date of Evaluation: 12/13/16 Time of Evaluation: 13:45 - Subjective Subjective: Awkw, alert Comfortable IVF d/c this morning Objective - Vital Signs/Intake and Output Vital Signs (last 24 hours): Temp Pulse Resp BP Pulse Ox 98.3 F 79 20 134/68 98 12/13/16 08:35 12/13/16 08:35 12/13/16 08:35 12/13/16 09:39 12/12/16 05:46 - Medications Medications: Current Medications Acetaminophen (Tylenol 325mg Tab) 650 mg PO Q6H PRN; Protocol PRN Reason: Fever >100.4 F Apixaban (Eliquis) 2.5 mg PO BID [facility] PRN Reason: Protocol Last Admin: 12/13/16 09:40 Dose: 2.5 mg Diltiazem HCl (Cardizem Cd) 120 mg PO DAILY [facility] PRN Reason: Protocol Last Admin: 12/13/16 09:39 Dose: 120 mg Famotidine (Pepcid) 20 mg PO DAILY [facility] PRN Reason: Protocol Last Admin: 12/13/16 09:40 Dose: 20 mg Ferrous Sulfate (Feosol) 324 mg PO DAILY [facility] PRN Reason: Protocol Last Admin: 12/13/16 09:40 Dose: 324 mg Hydralazine HCl (Apresoline) 10 mg PO QID [facility] PRN Reason: Protocol Last Admin: 12/13/16 09:38 Dose: 10 mg Sodium Chloride (Sodium Chloride 0.45%) 1,000 mls @ 60 mls/hr IV .[id number] [facility] PRN Reason: Protocol Last Admin: 12/13/16 05:38 Dose: 60 mls/hr Insulin Human Regular (Humulin R Low) 0 units SC ACHS [facility] PRN Reason: Protocol Last Admin: 12/13/16 12:04 Dose: 3 units Methimazole (Tapazole) 5 mg PO DAILY [facility] PRN Reason: Protocol Last Admin: 12/13/16 09:41 Dose: 5 mg Montelukast Sodium (Singulair) 10 mg PO HS [facility] PRN Reason: Protocol Last Admin: 12/12/16 21:48 Dose: 10 mg Mupirocin (Bactroban Ointment) 0 gm TOP BID [facility] PRN Reason: Protocol Last Admin: 12/13/16 09:38 Dose: 1 applic Non-Formulary Medication (Tadalafil [Adcirca]) 20 mg PO DAILY [facility] Last Admin: 12/13/16 09:41 Dose: 20 mg Oxycodone/Acetaminophen (Percocet 5/325 Mg Tab) 1 tab PO TID PRN PRN Reason: Pain, moderate (4-7) Stop: 12/16/16 10:01 Pantoprazole Sodium (Protonix Ec Tab) 20 mg PO 0600 [facility] PRN Reason: Protocol Last Admin: 12/13/16 05:37 Dose: 20 mg Prednisone (Prednisone Tab) 10 mg PO DAILY [facility] PRN Reason: Protocol Last Admin: 12/13/16 09:40 Dose: 10 mg Sodium Bicarbonate (Sodium Bicarbonate Tab) 650 mg PO Q8 [facility] PRN Reason: Protocol Last Admin: 12/13/16 05:37 Dose: 650 mg - Labs Labs: 12/11/16 07:00 12/13/16 06:45 - Constitutional Appears: Non-toxic - Head Exam Head Exam: ATRAUMATIC, NORMAL INSPECTION - ENT Exam ENT Exam: Mucous Membranes Moist - Neck Exam Neck Exam: Normal Inspection - Respiratory Exam Respiratory Exam: Rhonchi, NORMAL BREATHING PATTERN - Cardiovascular Exam Cardiovascular Exam: Irregular Rhythm, +S1, +S2 - GI/Abdominal Exam GI & Abdominal Exam: Soft, Normal Bowel Sounds - Extremities Exam Extremities Exam: Joint Swelling, Pedal Edema Assessment and Plan (1) Acute on chronic renal failure Assessment & Plan: Resolving ANDREA, push PO fluids No more IVF Status: Acute (2) Cardiomyopathy Assessment & Plan: Compensated Status: Acute (3) Pulmonary hypertension Assessment & Plan: Stable Status: Acute (4) Physical deconditioning Assessment & Plan: Con't PT Status: Acute
--- NOTE | 2016-12-13 22:11 | CP.PCM.PN ---
Subjective - Date & Time of Evaluation Date of Evaluation: 12/13/16 Time of Evaluation: 11:00 - Subjective Subjective: 70 years old lady with multiple medicle problems . had acute on ch ,ri . db. still having b/l knee pain . getting pain meds . pt . looking better Objective - Vital Signs/Intake and Output Vital Signs (last 24 hours): Temp Pulse Resp BP Pulse Ox 98.3 F 80 20 149/81 98 12/13/16 08:35 12/13/16 21:35 12/13/16 08:35 12/13/16 21:35 12/12/16 05:46 - Medications Medications: Current Medications Acetaminophen (Tylenol 325mg Tab) 650 mg PO Q6H PRN; Protocol PRN Reason: Fever >100.4 F Apixaban (Eliquis) 2.5 mg PO BID [facility] PRN Reason: Protocol Last Admin: 12/13/16 18:09 Dose: 2.5 mg Diltiazem HCl (Cardizem Cd) 120 mg PO DAILY [facility] PRN Reason: Protocol Last Admin: 12/13/16 09:39 Dose: 120 mg Famotidine (Pepcid) 20 mg PO DAILY [facility] PRN Reason: Protocol Last Admin: 12/13/16 09:40 Dose: 20 mg Ferrous Sulfate (Feosol) 324 mg PO DAILY [facility] PRN Reason: Protocol Last Admin: 12/13/16 09:40 Dose: 324 mg Hydralazine HCl (Apresoline) 10 mg PO QID [facility] PRN Reason: Protocol Last Admin: 12/13/16 21:35 Dose: 10 mg Sodium Chloride (Sodium Chloride 0.45%) 1,000 mls @ 60 mls/hr IV .[id number] [facility] PRN Reason: Protocol Last Admin: 12/13/16 21:37 Dose: 60 mls/hr Insulin Human Regular (Humulin R Low) 0 units SC ACHS [facility] PRN Reason: Protocol Last Admin: 12/13/16 16:30 Dose: Not Given Methimazole (Tapazole) 5 mg PO DAILY [facility] PRN Reason: Protocol Last Admin: 12/13/16 09:41 Dose: 5 mg Montelukast Sodium (Singulair) 10 mg PO HS [facility] PRN Reason: Protocol Last Admin: 12/13/16 21:35 Dose: 10 mg Mupirocin (Bactroban Ointment) 0 gm TOP BID [facility] PRN Reason: Protocol Last Admin: 12/13/16 18:08 Dose: 1 applic Non-Formulary Medication (Tadalafil [Adcirca]) 20 mg PO DAILY [facility] Last Admin: 12/13/16 09:41 Dose: 20 mg Oxycodone/Acetaminophen (Percocet 5/325 Mg Tab) 1 tab PO TID PRN PRN Reason: Pain, moderate (4-7) Stop: 12/16/16 10:01 Pantoprazole Sodium (Protonix Ec Tab) 20 mg PO 0600 [facility] PRN Reason: Protocol Last Admin: 12/13/16 05:37 Dose: 20 mg Prednisone (Prednisone Tab) 10 mg PO DAILY [facility] PRN Reason: Protocol Last Admin: 12/13/16 09:40 Dose: 10 mg Sodium Bicarbonate (Sodium Bicarbonate Tab) 650 mg PO Q8 [facility] PRN Reason: Protocol Last Admin: 12/13/16 21:35 Dose: 650 mg - Labs Labs: 12/11/16 07:00 12/13/16 06:45 - Constitutional Appears: Well - Head Exam Head Exam: ATRAUMATIC, NORMAL INSPECTION, NORMOCEPHALIC - Eye Exam Eye Exam: EOMI, Normal appearance, PERRL Pupil Exam: NORMAL ACCOMODATION, PERRL - ENT Exam ENT Exam: Mucous Membranes Moist, Normal Exam - Neck Exam Neck Exam: Full ROM, Normal Inspection. absent: Lymphadenopathy - Respiratory Exam Respiratory Exam: Clear to Ausculation Bilateral, NORMAL BREATHING PATTERN - Cardiovascular Exam Cardiovascular Exam: REGULAR RHYTHM, +S1, +S2. absent: Murmur - GI/Abdominal Exam GI & Abdominal Exam: Soft, Normal Bowel Sounds. absent: Tenderness - Back Exam Back Exam: NORMAL INSPECTION - Neurological Exam Neurological Exam: Alert, Awake, CN II-XII Intact, Normal Gait, Oriented x3 - Psychiatric Exam Psychiatric exam: Normal Affect, Normal Mood - Skin Skin Exam: Dry, Intact, Normal Color, Warm Assessment and Plan (1) Arthritis, multiple joint involvement Status: Acute (2) Cardiomyopathy Status: Acute (3) Fever Status: Acute (4) SYDNEY (obstructive sleep apnea) Status: Acute (5) Pulmonary hypertension Status: Acute (6) Abscess Status: Acute (7) Acute coronary syndrome Status: Acute (8) Acute on chronic renal failure Status: Acute - Assessment and Plan (Free Text) Assessment: 70 years old lady wit , many problems had acute on ch [place] . . goyt arthritis , cad , chf , sydney . obesity , djd . ataxia . cont. present treatment , gi dvt prophyl
--- NOTE | 2016-12-13 23:23 | CP.PCM.PN ---
Subjective - Date & Time of Evaluation Date of Evaluation: 12/13/16 Time of Evaluation: 11:00 - Subjective Subjective: 70 F w PMH of CHF EF 35%, CAD, COPD, DM was admitted with CHF and ANDREA. R chest wall abscess. Pt doesn't remember having lesion on her R chest. It was noticed by ID doctor. Pt had low grade fever of 100.4. Pt denies pain,chill, N,V,D, trauma, blurry vision, SOB with exertion, now admitted to [facility] for continue care, out of bed to chair, tolerated B PAP well. joint pain better, doing well in therapy Objective - Vital Signs/Intake and Output Vital Signs (last 24 hours): Temp Pulse Resp BP Pulse Ox 98.3 F 80 20 149/81 98 12/13/16 08:35 12/13/16 21:35 12/13/16 08:35 12/13/16 21:35 12/12/16 05:46 - Medications Medications: Current Medications Acetaminophen (Tylenol 325mg Tab) 650 mg PO Q6H PRN; Protocol PRN Reason: Fever >100.4 F Apixaban (Eliquis) 2.5 mg PO BID [facility] PRN Reason: Protocol Last Admin: 12/13/16 18:09 Dose: 2.5 mg Diltiazem HCl (Cardizem Cd) 120 mg PO DAILY [facility] PRN Reason: Protocol Last Admin: 12/13/16 09:39 Dose: 120 mg Famotidine (Pepcid) 20 mg PO DAILY [facility] PRN Reason: Protocol Last Admin: 12/13/16 09:40 Dose: 20 mg Ferrous Sulfate (Feosol) 324 mg PO DAILY [facility] PRN Reason: Protocol Last Admin: 12/13/16 09:40 Dose: 324 mg Hydralazine HCl (Apresoline) 10 mg PO QID [facility] PRN Reason: Protocol Last Admin: 12/13/16 21:35 Dose: 10 mg Sodium Chloride (Sodium Chloride 0.45%) 1,000 mls @ 60 mls/hr IV .[id number] [facility] PRN Reason: Protocol Last Admin: 12/13/16 21:37 Dose: 60 mls/hr Insulin Human Regular (Humulin R Low) 0 units SC ACHS [facility] PRN Reason: Protocol Last Admin: 12/13/16 16:30 Dose: Not Given Methimazole (Tapazole) 5 mg PO DAILY [facility] PRN Reason: Protocol Last Admin: 12/13/16 09:41 Dose: 5 mg Montelukast Sodium (Singulair) 10 mg PO HS [facility] PRN Reason: Protocol Last Admin: 12/13/16 21:35 Dose: 10 mg Mupirocin (Bactroban Ointment) 0 gm TOP BID [facility] PRN Reason: Protocol Last Admin: 12/13/16 18:08 Dose: 1 applic Non-Formulary Medication (Tadalafil [Adcirca]) 20 mg PO DAILY [facility] Last Admin: 12/13/16 09:41 Dose: 20 mg Oxycodone/Acetaminophen (Percocet 5/325 Mg Tab) 1 tab PO TID PRN PRN Reason: Pain, moderate (4-7) Stop: 12/16/16 10:01 Pantoprazole Sodium (Protonix Ec Tab) 20 mg PO 0600 [facility] PRN Reason: Protocol Last Admin: 12/13/16 05:37 Dose: 20 mg Prednisone (Prednisone Tab) 10 mg PO DAILY [facility] PRN Reason: Protocol Last Admin: 12/13/16 09:40 Dose: 10 mg Sodium Bicarbonate (Sodium Bicarbonate Tab) 650 mg PO Q8 [facility] PRN Reason: Protocol Last Admin: 12/13/16 21:35 Dose: 650 mg - Labs Labs: 12/11/16 07:00 12/13/16 06:45 - Constitutional Appears: In Acute Distress - Head Exam Head Exam: ATRAUMATIC, NORMAL INSPECTION, NORMOCEPHALIC - ENT Exam ENT Exam: Mucous Membranes Moist, Normal Exam - Neck Exam Neck Exam: Full ROM, Normal Inspection. absent: Lymphadenopathy - Respiratory Exam Respiratory Exam: Rales, Rhonchi - Cardiovascular Exam Cardiovascular Exam: REGULAR RHYTHM, +S1, +S2. absent: Murmur - GI/Abdominal Exam GI & Abdominal Exam: Soft, Normal Bowel Sounds. absent: Tenderness - Extremities Exam Extremities Exam: Joint Swelling Assessment and Plan (1) Pulmonary hypertension Assessment & Plan: diuretics pul. vasodilators Status: Acute (2) Abscess Assessment & Plan: improve Status: Acute (3) Acute on chronic renal failure Assessment & Plan: avoid nephro toxic drugs Status: Acute (4) Atrial fibrillation Assessment & Plan: anti coagulatin and rate control Status: Acute (5) SALLY (obstructive sleep apnea) Assessment & Plan: con C PAP, sleep apnea precaution Status: Acute (6) Cardiomyopathy Assessment & Plan: diuretics and cardiology follow up Status: Acute (7) Arthritis, multiple joint involvement Assessment & Plan: on prednison Status: Acute
[2016-12-14] MEDS: Pantoprazole 20 mg EC Tab PO SCH (05:29)
[2016-12-14] MEDS: Insulin Reg-LOW-Coverage SC SCH ×4 (06:47→22:10)
[2016-12-14 07:23] LABS: CALCIUM 9.3 mg/dL (8.4-10.5); MAGNESIUM 2.4 mg/dL (1.7-2.2)
[2016-12-14] MEDS: methIMAzole 5 MG TAB PO SCH (10:09)
[2016-12-14] MEDS: diltiaZEM 120 mg/24 Hours CD Cap PO SCH (10:10)
--- NOTE | 2016-12-14 10:25 | CP.PCM.PN ---
Subjective - Date & Time of Evaluation Date of Evaluation: 12/14/16 Time of Evaluation: 07:15 - Subjective Subjective: Feels ok, no Chest pain, No SOB Objective - Vital Signs/Intake and Output Vital Signs (last 24 hours): Temp Pulse Resp BP Pulse Ox 98.3 F 81 20 136/77 98 12/13/16 08:35 12/14/16 10:10 12/13/16 08:35 12/14/16 10:10 12/12/16 05:46 - Medications Medications: Current Medications Acetaminophen (Tylenol 325mg Tab) 650 mg PO Q6H PRN; Protocol PRN Reason: Fever >100.4 F Apixaban (Eliquis) 2.5 mg PO BID [facility] PRN Reason: Protocol Last Admin: 12/14/16 10:09 Dose: 2.5 mg Diltiazem HCl (Cardizem Cd) 120 mg PO DAILY [facility] PRN Reason: Protocol Last Admin: 12/14/16 10:10 Dose: 120 mg Famotidine (Pepcid) 20 mg PO DAILY [facility] PRN Reason: Protocol Last Admin: 12/14/16 10:08 Dose: 20 mg Ferrous Sulfate (Feosol) 324 mg PO DAILY [facility] PRN Reason: Protocol Last Admin: 12/14/16 10:10 Dose: 324 mg Hydralazine HCl (Apresoline) 10 mg PO QID [facility] PRN Reason: Protocol Last Admin: 12/14/16 10:09 Dose: 10 mg Sodium Chloride (Sodium Chloride 0.45%) 1,000 mls @ 60 mls/hr IV .[id number] [facility] PRN Reason: Protocol Last Admin: 12/13/16 21:37 Dose: 60 mls/hr Insulin Human Regular (Humulin R Low) 0 units SC ACHS [facility] PRN Reason: Protocol Last Admin: 12/14/16 06:47 Dose: Not Given Methimazole (Tapazole) 5 mg PO DAILY [facility] PRN Reason: Protocol Last Admin: 12/14/16 10:09 Dose: 5 mg Montelukast Sodium (Singulair) 10 mg PO HS [facility] PRN Reason: Protocol Last Admin: 12/13/16 21:35 Dose: 10 mg Mupirocin (Bactroban Ointment) 0 gm TOP BID [facility] PRN Reason: Protocol Last Admin: 12/14/16 10:11 Dose: 1 applic Non-Formulary Medication (Tadalafil [Adcirca]) 20 mg PO DAILY [facility] Last Admin: 12/14/16 10:12 Dose: 20 mg Oxycodone/Acetaminophen (Percocet 5/325 Mg Tab) 1 tab PO TID PRN PRN Reason: Pain, moderate (4-7) Stop: 12/16/16 10:01 Pantoprazole Sodium (Protonix Ec Tab) 20 mg PO 0600 [facility] PRN Reason: Protocol Last Admin: 12/14/16 05:29 Dose: 20 mg Prednisone (Prednisone Tab) 10 mg PO DAILY [facility] PRN Reason: Protocol Last Admin: 12/14/16 10:08 Dose: 10 mg Sodium Bicarbonate (Sodium Bicarbonate Tab) 650 mg PO Q8 [facility] PRN Reason: Protocol Last Admin: 12/14/16 05:29 Dose: 650 mg - Labs Labs: 12/11/16 07:00 12/14/16 06:25 Assessment and Plan - Assessment and Plan (Free Text) Assessment: CMP, Compensated CHF secondary to Sys Dys Fx Non ischemic CMP S/p MVR ( repair) PAF Acute kidney Injury on CKD Ch. venous stasis of leg. deconditioning of body leg weakness. Plan: Contionue Anti coag resume gentle diuretics Continue Rehab Reassess LV Fx in 3-6 months for AICD eval( being f/u with Dr. Hernandez at [facility]).
[2016-12-14 10:33] VITALS: RESP 18
--- NOTE | 2016-12-14 10:46 | CP.PCM.PN ---
Subjective - Date & Time of Evaluation Date of Evaluation: 12/14/16 Time of Evaluation: 09:00 - Subjective Subjective: WEAK BUT BETTER Objective - Vital Signs/Intake and Output Vital Signs (last 24 hours): Temp Pulse Resp BP Pulse Ox 97.4 F L 81 18 136/77 98 12/14/16 10:33 12/14/16 10:33 12/14/16 10:33 12/14/16 10:33 12/14/16 10:33 - Medications Medications: Current Medications Acetaminophen (Tylenol 325mg Tab) 650 mg PO Q6H PRN; Protocol PRN Reason: Fever >100.4 F Apixaban (Eliquis) 2.5 mg PO BID [facility] PRN Reason: Protocol Last Admin: 12/14/16 10:09 Dose: 2.5 mg Diltiazem HCl (Cardizem Cd) 120 mg PO DAILY [facility] PRN Reason: Protocol Last Admin: 12/14/16 10:10 Dose: 120 mg Famotidine (Pepcid) 20 mg PO DAILY [facility] PRN Reason: Protocol Last Admin: 12/14/16 10:08 Dose: 20 mg Ferrous Sulfate (Feosol) 324 mg PO DAILY [facility] PRN Reason: Protocol Last Admin: 12/14/16 10:10 Dose: 324 mg Furosemide (Lasix) 40 mg PO DAILY [facility] Hydralazine HCl (Apresoline) 10 mg PO QID [facility] PRN Reason: Protocol Last Admin: 12/14/16 10:09 Dose: 10 mg Insulin Human Regular (Humulin R Low) 0 units SC ACHS [facility] PRN Reason: Protocol Last Admin: 12/14/16 06:47 Dose: Not Given Methimazole (Tapazole) 5 mg PO DAILY [facility] PRN Reason: Protocol Last Admin: 12/14/16 10:09 Dose: 5 mg Montelukast Sodium (Singulair) 10 mg PO HS [facility] PRN Reason: Protocol Last Admin: 12/13/16 21:35 Dose: 10 mg Mupirocin (Bactroban Ointment) 0 gm TOP BID [facility] PRN Reason: Protocol Last Admin: 12/14/16 10:11 Dose: 1 applic Non-Formulary Medication (Tadalafil [Adcirca]) 20 mg PO DAILY [facility] Last Admin: 12/14/16 10:12 Dose: 20 mg Oxycodone/Acetaminophen (Percocet 5/325 Mg Tab) 1 tab PO TID PRN PRN Reason: Pain, moderate (4-7) Stop: 12/16/16 10:01 Pantoprazole Sodium (Protonix Ec Tab) 20 mg PO 0600 [facility] PRN Reason: Protocol Last Admin: 12/14/16 05:29 Dose: 20 mg Prednisone (Prednisone Tab) 10 mg PO DAILY [facility] PRN Reason: Protocol Last Admin: 12/14/16 10:08 Dose: 10 mg Sodium Bicarbonate (Sodium Bicarbonate Tab) 650 mg PO Q8 [facility] PRN Reason: Protocol Last Admin: 12/14/16 05:29 Dose: 650 mg - Labs Labs: 12/11/16 07:00 12/14/16 06:25 - Constitutional Appears: Well - Head Exam Head Exam: ATRAUMATIC, NORMAL INSPECTION, NORMOCEPHALIC - Eye Exam Eye Exam: EOMI, Normal appearance, PERRL Pupil Exam: NORMAL ACCOMODATION, PERRL - ENT Exam ENT Exam: Mucous Membranes Moist, Normal Exam - Neck Exam Neck Exam: Full ROM, Normal Inspection. absent: Lymphadenopathy - Respiratory Exam Respiratory Exam: Clear to Ausculation Bilateral, NORMAL BREATHING PATTERN - Cardiovascular Exam Cardiovascular Exam: REGULAR RHYTHM, +S1, +S2. absent: Murmur - GI/Abdominal Exam GI & Abdominal Exam: Soft, Normal Bowel Sounds. absent: Tenderness - Rectal Exam Rectal Exam: NORMAL INSPECTION - Exam Exam: Circumcision, NORMAL INSPECTION External exam: NORMAL EXTERNAL EXAM Speculum exam: NORMAL SPECULUM EXAM Bimanual exam: NORMAL BIMANUAL EXAM - Extremities Exam Extremities Exam: Full ROM, Normal Capillary Refill, Normal Inspection. absent : Joint Swelling, Pedal Edema - Back Exam Back Exam: NORMAL INSPECTION - Neurological Exam Neurological Exam: Alert, Awake, CN II-XII Intact, Normal Gait, Oriented x3 - Psychiatric Exam Psychiatric exam: Normal Affect, Normal Mood - Skin Skin Exam: Dry, Intact, Normal Color, Warm Assessment and Plan (1) Fever Status: Acute (2) Abscess Status: Acute (3) Acute on chronic renal failure Status: Acute (4) Chest wall abscess Status: Acute (5) Congestive heart failure (CHF) Status: Acute - Assessment and Plan (Free Text) Plan: OFF OF ABX
--- NOTE | 2016-12-14 15:43 | CP.PCM.PN ---
Subjective - Date & Time of Evaluation Date of Evaluation: 12/14/16 Time of Evaluation: 15:30 - Subjective Subjective: Sitting in chair, reports that her heartrate was elevated earlier Also complains of pain in left knee and hands Objective - Vital Signs/Intake and Output Vital Signs (last 24 hours): Temp Pulse Resp BP Pulse Ox 97.4 F L 153 H 18 108/78 98 12/14/16 10:33 12/14/16 13:10 12/14/16 10:33 12/14/16 13:10 12/14/16 10:33 - Medications Medications: Current Medications Acetaminophen (Tylenol 325mg Tab) 650 mg PO Q6H PRN; Protocol PRN Reason: Fever >100.4 F Apixaban (Eliquis) 2.5 mg PO BID [facility] PRN Reason: Protocol Last Admin: 12/14/16 10:09 Dose: 2.5 mg Diltiazem HCl (Cardizem Cd) 120 mg PO DAILY [facility] PRN Reason: Protocol Last Admin: 12/14/16 10:10 Dose: 120 mg Famotidine (Pepcid) 20 mg PO DAILY [facility] PRN Reason: Protocol Last Admin: 12/14/16 10:08 Dose: 20 mg Ferrous Sulfate (Feosol) 324 mg PO DAILY [facility] PRN Reason: Protocol Last Admin: 12/14/16 10:10 Dose: 324 mg Furosemide (Lasix) 40 mg PO DAILY [facility] Hydralazine HCl (Apresoline) 10 mg PO QID [facility] PRN Reason: Protocol Last Admin: 12/14/16 13:10 Dose: 10 mg Insulin Human Regular (Humulin R Low) 0 units SC ACHS [facility] PRN Reason: Protocol Last Admin: 12/14/16 12:30 Dose: Not Given Methimazole (Tapazole) 5 mg PO DAILY [facility] PRN Reason: Protocol Last Admin: 12/14/16 10:09 Dose: 5 mg Montelukast Sodium (Singulair) 10 mg PO HS [facility] PRN Reason: Protocol Last Admin: 12/13/16 21:35 Dose: 10 mg Mupirocin (Bactroban Ointment) 0 gm TOP BID [facility] PRN Reason: Protocol Last Admin: 12/14/16 10:11 Dose: 1 applic Non-Formulary Medication (Tadalafil [Adcirca]) 20 mg PO DAILY [facility] Last Admin: 12/14/16 10:12 Dose: 20 mg Oxycodone/Acetaminophen (Percocet 5/325 Mg Tab) 1 tab PO TID PRN PRN Reason: Pain, moderate (4-7) Stop: 12/16/16 10:01 Pantoprazole Sodium (Protonix Ec Tab) 20 mg PO 0600 [facility] PRN Reason: Protocol Last Admin: 12/14/16 05:29 Dose: 20 mg Prednisone (Prednisone Tab) 10 mg PO DAILY [facility] PRN Reason: Protocol Last Admin: 12/14/16 10:08 Dose: 10 mg Sodium Bicarbonate (Sodium Bicarbonate Tab) 650 mg PO Q8 [facility] PRN Reason: Protocol Last Admin: 12/14/16 13:07 Dose: 650 mg - Labs Labs: 12/11/16 07:00 12/14/16 06:25 - Constitutional Appears: Non-toxic - Head Exam Head Exam: NORMAL INSPECTION, NORMOCEPHALIC - Eye Exam Eye Exam: Normal appearance - Neck Exam Neck Exam: Normal Inspection - Respiratory Exam Respiratory Exam: NORMAL BREATHING PATTERN - Cardiovascular Exam Cardiovascular Exam: REGULAR RHYTHM, +S1, +S2 - GI/Abdominal Exam GI & Abdominal Exam: Soft, Normal Bowel Sounds - Extremities Exam Extremities Exam: Pedal Edema Assessment and Plan (1) Acute on chronic renal failure Status: Acute (2) Cardiomyopathy Status: Acute (3) Pulmonary hypertension Status: Acute (4) Physical deconditioning Status: Acute - Assessment and Plan (Free Text) Assessment: (1) Acute on chronic renal failure Assessment & Plan: Resolving ANDREA, push PO fluids No more IVF Status: Acute (2) Cardiomyopathy Assessment & Plan: Compensated Status: Acute (3) Pulmonary hypertension Assessment & Plan: Stable Status: Acute (4) Physical deconditioning Assessment & Plan: Con't PT Status: Acute (5) Gout: knee was tapped, but fluid results are not available change prednisone to 5mg daily start colchicine 0.3mg daily uloric 40mg daily as outpatient
--- NOTE | 2016-12-14 19:03 | CP.PCM.PN ---
Subjective - Date & Time of Evaluation Date of Evaluation: 12/14/16 Time of Evaluation: 16:00 - Subjective Subjective: 70 F w PMH of CHF EF 35%, CAD, COPD, DM was admitted with CHF and ANDREA. R chest wall abscess. Pt doesn't remember having lesion on her R chest. It was noticed by ID doctor. Pt had low grade fever of 100.4. Pt denies pain,chill, N,V,D, trauma, blurry vision, SOB with exertion, now admitted to [facility] for continue care, out of bed to chair, tolerated B PAP well. joint pain better, doing well in therapy family at bed side Objective - Vital Signs/Intake and Output Vital Signs (last 24 hours): Temp Pulse Resp BP Pulse Ox 97.4 F L 104 H 18 119/61 98 12/14/16 10:33 12/14/16 17:16 12/14/16 10:33 12/14/16 17:16 12/14/16 10:33 - Medications Medications: Current Medications Acetaminophen (Tylenol 325mg Tab) 650 mg PO Q6H PRN; Protocol PRN Reason: Fever >100.4 F Apixaban (Eliquis) 2.5 mg PO BID [facility] PRN Reason: Protocol Last Admin: 12/14/16 17:16 Dose: 2.5 mg Colchicine (Colocrys) 0.3 mg PO DAILY [facility] Last Admin: 12/14/16 16:22 Dose: 0.3 mg Diltiazem HCl (Cardizem Cd) 120 mg PO DAILY [facility] PRN Reason: Protocol Last Admin: 12/14/16 10:10 Dose: 120 mg Famotidine (Pepcid) 20 mg PO DAILY [facility] PRN Reason: Protocol Last Admin: 12/14/16 10:08 Dose: 20 mg Ferrous Sulfate (Feosol) 324 mg PO DAILY [facility] PRN Reason: Protocol Last Admin: 12/14/16 10:10 Dose: 324 mg Furosemide (Lasix) 40 mg PO DAILY [facility] Hydralazine HCl (Apresoline) 10 mg PO QID [facility] PRN Reason: Protocol Last Admin: 12/14/16 17:16 Dose: 10 mg Insulin Human Regular (Humulin R Low) 0 units SC ACHS [facility] PRN Reason: Protocol Last Admin: 12/14/16 17:17 Dose: 1 units Methimazole (Tapazole) 5 mg PO DAILY [facility] PRN Reason: Protocol Last Admin: 12/14/16 10:09 Dose: 5 mg Montelukast Sodium (Singulair) 10 mg PO HS [facility] PRN Reason: Protocol Last Admin: 12/13/16 21:35 Dose: 10 mg Mupirocin (Bactroban Ointment) 0 gm TOP BID [facility] PRN Reason: Protocol Last Admin: 12/14/16 17:17 Dose: 1 applic Non-Formulary Medication (Tadalafil [Adcirca]) 20 mg PO DAILY [facility] Last Admin: 12/14/16 10:12 Dose: 20 mg Oxycodone/Acetaminophen (Percocet 5/325 Mg Tab) 1 tab PO TID PRN PRN Reason: Pain, moderate (4-7) Stop: 12/16/16 10:01 Pantoprazole Sodium (Protonix Ec Tab) 20 mg PO 0600 [facility] PRN Reason: Protocol Last Admin: 12/14/16 05:29 Dose: 20 mg Prednisone (Prednisone Tab) 5 mg PO DAILY [facility] PRN Reason: Protocol Sodium Bicarbonate (Sodium Bicarbonate Tab) 650 mg PO Q8 [facility] PRN Reason: Protocol Last Admin: 12/14/16 13:07 Dose: 650 mg - Labs Labs: 12/11/16 07:00 12/14/16 06:25 - Constitutional Appears: No Acute Distress - Head Exam Head Exam: ATRAUMATIC, NORMAL INSPECTION, NORMOCEPHALIC - Neck Exam Neck Exam: Full ROM, Normal Inspection. absent: Lymphadenopathy - Respiratory Exam Respiratory Exam: Rales, Rhonchi - Cardiovascular Exam Cardiovascular Exam: Irregular Rhythm - GI/Abdominal Exam GI & Abdominal Exam: Soft, Normal Bowel Sounds. absent: Tenderness - Extremities Exam Extremities Exam: Joint Swelling, Pedal Edema, Tenderness - Neurological Exam Neurological Exam: Alert, Awake, CN II-XII Intact, Normal Gait, Oriented x3 Assessment and Plan (1) Pulmonary hypertension Assessment & Plan: pulmonary vasodilators, supplement oxygen, encourage B PAP use Status: Acute (2) Abscess Assessment & Plan: better Status: Acute (3) Acute on chronic renal failure Assessment & Plan: follow up renal function, avoide nephrotoxic meds Status: Acute (4) Atrial fibrillation Assessment & Plan: anti coagulation, cardiazem Status: Acute (5) SALLY (obstructive sleep apnea) Assessment & Plan: c pap while sleeping Status: Acute (6) Cardiomyopathy Assessment & Plan: diuretic and after load stripper preliminary Status: Acute (7) Arthritis, multiple joint involvement Assessment & Plan: continue prednisone Status: Acute
--- NOTE | 2016-12-14 22:44 | CP.PCM.PN ---
Subjective - Date & Time of Evaluation Date of Evaluation: 12/14/16 Time of Evaluation: 06:30 - Subjective Subjective: 70 years old lady with acute on ch . [place] , is getting better slowly , seen by dr Hammer , getting pt ,ot , sitting on the chair , feeling better , no n.v.d , no garcia , want to go home , Objective - Vital Signs/Intake and Output Vital Signs (last 24 hours): Temp Pulse Resp BP Pulse Ox 97.4 F L 98 H 18 115/78 98 12/14/16 10:33 12/14/16 21:53 12/14/16 10:33 12/14/16 21:53 12/14/16 10:33 - Medications Medications: Current Medications Acetaminophen (Tylenol 325mg Tab) 650 mg PO Q6H PRN; Protocol PRN Reason: Fever >100.4 F Apixaban (Eliquis) 2.5 mg PO BID VINI PRN Reason: Protocol Last Admin: 12/14/16 17:16 Dose: 2.5 mg Colchicine (Colocrys) 0.3 mg PO DAILY VINI Last Admin: 12/14/16 16:22 Dose: 0.3 mg Diltiazem HCl (Cardizem Cd) 120 mg PO DAILY VINI PRN Reason: Protocol Last Admin: 12/14/16 10:10 Dose: 120 mg Famotidine (Pepcid) 20 mg PO DAILY [facility]INI PRN Reason: Protocol Last Admin: 12/14/16 10:08 Dose: 20 mg Ferrous Sulfate (Feosol) 324 mg PO DAILY VINI PRN Reason: Protocol Last Admin: 12/14/16 10:10 Dose: 324 mg Furosemide (Lasix) 40 mg PO DAILY VINI Hydralazine HCl (Apresoline) 10 mg PO QID VINI PRN Reason: Protocol Last Admin: 12/14/16 21:53 Dose: 10 mg Insulin Human Regular (Humulin R Low) 0 units SC ACHS VINI PRN Reason: Protocol Last Admin: 12/14/16 22:10 Dose: Not Given Methimazole (Tapazole) 5 mg PO DAILY VINI PRN Reason: Protocol Last Admin: 12/14/16 10:09 Dose: 5 mg Montelukast Sodium (Singulair) 10 mg PO HS VINI PRN Reason: Protocol Last Admin: 12/14/16 21:54 Dose: 10 mg Mupirocin (Bactroban Ointment) 0 gm TOP BID ON LICENSE OF [facility] PRN Reason: Protocol Last Admin: 12/14/16 17:17 Dose: 1 applic Non-Formulary Medication (Tadalafil [Adcirca]) 20 mg PO DAILY ON LICENSE OF [facility] Last Admin: 12/14/16 10:12 Dose: 20 mg Oxycodone/Acetaminophen (Percocet 5/325 Mg Tab) 1 tab PO TID PRN PRN Reason: Pain, moderate (4-7) Stop: 12/16/16 10:01 Pantoprazole Sodium (Protonix Ec Tab) 20 mg PO 0600 ON LICENSE OF [facility] PRN Reason: Protocol Last Admin: 12/14/16 05:29 Dose: 20 mg Prednisone (Prednisone Tab) 5 mg PO DAILY ON LICENSE OF [facility] PRN Reason: Protocol Sodium Bicarbonate (Sodium Bicarbonate Tab) 650 mg PO Q8 ON LICENSE OF [facility] PRN Reason: Protocol Last Admin: 12/14/16 21:54 Dose: 650 mg - Labs Labs: 12/11/16 07:00 12/14/16 06:25 - Constitutional Appears: Well - Head Exam Head Exam: ATRAUMATIC, NORMAL INSPECTION, NORMOCEPHALIC - Eye Exam Eye Exam: EOMI, Normal appearance, PERRL Pupil Exam: NORMAL ACCOMODATION, PERRL - ENT Exam ENT Exam: Mucous Membranes Moist, Normal Exam - Neck Exam Neck Exam: Full ROM, Normal Inspection. absent: Lymphadenopathy - Respiratory Exam Respiratory Exam: Clear to Ausculation Bilateral, NORMAL BREATHING PATTERN - Cardiovascular Exam Cardiovascular Exam: REGULAR RHYTHM, +S1, +S2. absent: Murmur - GI/Abdominal Exam GI & Abdominal Exam: Soft, Normal Bowel Sounds. absent: Tenderness - Back Exam Back Exam: NORMAL INSPECTION - Neurological Exam Neurological Exam: Alert, Awake, CN II-XII Intact, Normal Gait, Oriented x3 - Psychiatric Exam Psychiatric exam: Normal Affect, Normal Mood - Skin Skin Exam: Dry, Intact, Normal Color, Warm Assessment and Plan (1) Arthritis, multiple joint involvement Status: Acute (2) Cardiomyopathy Status: Acute (3) Fever Status: Acute (4) SALLY (obstructive sleep apnea) Status: Acute (5) Pulmonary hypertension Status: Acute (6) Abscess Status: Acute (7) Acute coronary syndrome Status: Acute (8) Acute on chronic renal failure Status: Acute - Assessment and Plan (Free Text) Assessment: 70 years old lady with all above problems , s/p orthopoedic procedure . getting pt . will repeat lab and f/u
[2016-12-15] MEDS: Pantoprazole 20 mg EC Tab PO SCH (05:42)
[2016-12-15] MEDS: Insulin Reg-LOW-Coverage SC SCH ×2 (07:35→11:11)
[2016-12-15 07:39] LABS: HEMOGLOBIN 9.3 gm/dL (12.0-16.0); MEAN CELL VOLUME 93.3 fL (80.0-105.0); MEAN CORPUSCULAR HEMOGLOBIN 29.7 pg (25.0-35.0); MEAN CORPUSCULAR HGB CONC 31.8 g/dl (31.0-37.0); MEAN PLATELET VOLUME 8.6 fl (7.0-11.0); RBC 3.13 10^6/uL (3.5-6.1); RED CELL DISTRIBUTION WIDTH 15.8 % (11.5-14.5); WHITE BLOOD COUNT 7.1 10^3/ul (4.5-11.0)
[2016-12-15 07:48] LABS: CALCIUM 9.1 mg/dL (8.4-10.5)
[2016-12-15] MEDS: diltiaZEM 120 mg/24 Hours CD Cap PO SCH (10:07)
[2016-12-15] MEDS: methIMAzole 5 MG TAB PO SCH (10:18)
[2016-12-15 10:19] VITALS: BP 130/90; PULSE 42
--- NOTE | 2016-12-15 10:55 | CP.PCM.PN ---
Subjective - Date & Time of Evaluation Date of Evaluation: 12/15/16 Time of Evaluation: 08:00 - Subjective Subjective: DOING WELL Objective - Vital Signs/Intake and Output Vital Signs (last 24 hours): Temp Pulse Resp BP Pulse Ox 97.4 F L 42 L 18 130/90 98 12/14/16 10:33 12/15/16 10:07 12/14/16 10:33 12/15/16 10:12 12/14/16 10:33 - Medications Medications: Current Medications Acetaminophen (Tylenol 325mg Tab) 650 mg PO Q6H PRN; Protocol PRN Reason: Fever >100.4 F Apixaban (Eliquis) 2.5 mg PO BID VINI PRN Reason: Protocol Last Admin: 12/15/16 10:12 Dose: 2.5 mg Colchicine (Colocrys) 0.3 mg PO DAILY VINI Last Admin: 12/15/16 10:14 Dose: 0.3 mg Diltiazem HCl (Cardizem Cd) 120 mg PO DAILY VINI PRN Reason: Protocol Last Admin: 12/15/16 10:07 Dose: Not Given Famotidine (Pepcid) 20 mg PO DAILY VINI PRN Reason: Protocol Last Admin: 12/15/16 10:12 Dose: 20 mg Ferrous Sulfate (Feosol) 324 mg PO DAILY VINI PRN Reason: Protocol Last Admin: 12/15/16 10:12 Dose: 324 mg Furosemide (Lasix) 40 mg PO DAILY VINI Last Admin: 12/15/16 10:12 Dose: 40 mg Hydralazine HCl (Apresoline) 10 mg PO QID VINI PRN Reason: Protocol Last Admin: 12/15/16 10:16 Dose: 10 mg Insulin Human Regular (Humulin R Low) 0 units SC ACHS VINI PRN Reason: Protocol Last Admin: 12/15/16 07:35 Dose: Not Given Methimazole (Tapazole) 5 mg PO DAILY VINI PRN Reason: Protocol Last Admin: 12/15/16 10:18 Dose: 5 mg Montelukast Sodium (Singulair) 10 mg PO HS VINI PRN Reason: Protocol Last Admin: 12/14/16 21:54 Dose: 10 mg Mupirocin (Bactroban Ointment) 0 gm TOP BID VINI PRN Reason: Protocol Last Admin: 12/15/16 10:07 Dose: Not Given Non-Formulary Medication (Tadalafil [Adcirca]) 20 mg PO DAILY [facility] Last Admin: 12/15/16 10:18 Dose: 20 mg Oxycodone/Acetaminophen (Percocet 5/325 Mg Tab) 1 tab PO TID PRN PRN Reason: Pain, moderate (4-7) Stop: 12/16/16 10:01 Pantoprazole Sodium (Protonix Ec Tab) 20 mg PO 0600 [facility] PRN Reason: Protocol Last Admin: 12/15/16 05:42 Dose: 20 mg Prednisone (Prednisone Tab) 5 mg PO DAILY [facility]INI PRN Reason: Protocol Last Admin: 12/15/16 10:17 Dose: 5 mg Sodium Bicarbonate (Sodium Bicarbonate Tab) 650 mg PO Q8 [facility] PRN Reason: Protocol Last Admin: 12/15/16 05:42 Dose: 650 mg - Labs Labs: 12/15/16 07:00 12/15/16 07:35 - Constitutional Appears: Well - Head Exam Head Exam: ATRAUMATIC, NORMAL INSPECTION, NORMOCEPHALIC - Eye Exam Eye Exam: EOMI, Normal appearance, PERRL Pupil Exam: NORMAL ACCOMODATION, PERRL - ENT Exam ENT Exam: Mucous Membranes Moist, Normal Exam - Neck Exam Neck Exam: Full ROM, Normal Inspection. absent: Lymphadenopathy - Respiratory Exam Respiratory Exam: Clear to Ausculation Bilateral, NORMAL BREATHING PATTERN - Cardiovascular Exam Cardiovascular Exam: REGULAR RHYTHM, +S1, +S2. absent: Murmur - GI/Abdominal Exam GI & Abdominal Exam: Soft, Normal Bowel Sounds. absent: Tenderness - Rectal Exam Rectal Exam: NORMAL INSPECTION - Exam Exam: Circumcision, NORMAL INSPECTION External exam: NORMAL EXTERNAL EXAM Speculum exam: NORMAL SPECULUM EXAM Bimanual exam: NORMAL BIMANUAL EXAM - Extremities Exam Extremities Exam: Full ROM, Normal Capillary Refill, Normal Inspection. absent : Joint Swelling, Pedal Edema - Back Exam Back Exam: NORMAL INSPECTION - Neurological Exam Neurological Exam: Alert, Awake, CN II-XII Intact, Normal Gait, Oriented x3 - Psychiatric Exam Psychiatric exam: Normal Affect, Normal Mood - Skin Skin Exam: Dry, Intact, Normal Color, Warm Assessment and Plan (1) Fever Status: Acute (2) Abscess Status: Acute (3) Acute on chronic renal failure Status: Acute (4) Chest wall abscess Status: Acute (5) Congestive heart failure (CHF) Status: Acute - Assessment and Plan (Free Text) Plan: OFF OF ABX
[2016-12-15 11:23] VITALS: TEMP 98.2
--- NOTE | 2016-12-15 12:06 | CP.PCM.PN ---
Subjective - Date & Time of Evaluation Date of Evaluation: 12/15/16 Time of Evaluation: 09:15 - Subjective Subjective: no new complain Objective - Vital Signs/Intake and Output Vital Signs (last 24 hours): Temp Pulse Resp BP Pulse Ox 98.2 F 42 L 18 130/90 98 12/15/16 10:00 12/15/16 10:07 12/15/16 10:00 12/15/16 10:12 12/15/16 10:00 - Medications Medications: Current Medications Acetaminophen (Tylenol 325mg Tab) 650 mg PO Q6H PRN; Protocol PRN Reason: Fever >100.4 F Apixaban (Eliquis) 2.5 mg PO BID VINI PRN Reason: Protocol Last Admin: 12/15/16 10:12 Dose: 2.5 mg Colchicine (Colocrys) 0.3 mg PO DAILY VINI Last Admin: 12/15/16 10:14 Dose: 0.3 mg Diltiazem HCl (Cardizem Cd) 120 mg PO DAILY [facility]I PRN Reason: Protocol Last Admin: 12/15/16 10:07 Dose: Not Given Famotidine (Pepcid) 20 mg PO DAILY [facility]I PRN Reason: Protocol Last Admin: 12/15/16 10:12 Dose: 20 mg Ferrous Sulfate (Feosol) 324 mg PO DAILY [facility]I PRN Reason: Protocol Last Admin: 12/15/16 10:12 Dose: 324 mg Furosemide (Lasix) 40 mg PO DAILY [facility]I Last Admin: 12/15/16 10:12 Dose: 40 mg Hydralazine HCl (Apresoline) 10 mg PO QID [facility]I PRN Reason: Protocol Last Admin: 12/15/16 10:16 Dose: 10 mg Insulin Human Regular (Humulin R Low) 0 units SC ACHS [facility]I PRN Reason: Protocol Last Admin: 12/15/16 11:11 Dose: Not Given Methimazole (Tapazole) 5 mg PO DAILY [facility]I PRN Reason: Protocol Last Admin: 12/15/16 10:18 Dose: 5 mg Montelukast Sodium (Singulair) 10 mg PO HS [facility]INI PRN Reason: Protocol Last Admin: 12/14/16 21:54 Dose: 10 mg Mupirocin (Bactroban Ointment) 0 gm TOP BID [facility]I PRN Reason: Protocol Last Admin: 07/04/17 10:07 Dose: Not Given Non-Formulary Medication (Tadalafil [Adcirca]) 20 mg PO DAILY [facility] Last Admin: 12/15/16 10:18 Dose: 20 mg Oxycodone/Acetaminophen (Percocet 5/325 Mg Tab) 1 tab PO TID PRN PRN Reason: Pain, moderate (4-7) Stop: 12/16/16 10:01 Pantoprazole Sodium (Protonix Ec Tab) 20 mg PO 0600 [facility] PRN Reason: Protocol Last Admin: 12/15/16 05:42 Dose: 20 mg Prednisone (Prednisone Tab) 5 mg PO DAILY [facility]I PRN Reason: Protocol Last Admin: 12/15/16 10:17 Dose: 5 mg Sodium Bicarbonate (Sodium Bicarbonate Tab) 650 mg PO Q8 [facility] PRN Reason: Protocol Last Admin: 12/15/16 05:42 Dose: 650 mg - Labs Labs: 12/15/16 07:00 12/15/16 07:35 Assessment and Plan - Assessment and Plan (Free Text) Assessment: Acute kidney injury on CKD CMP Non ischemic S/p MV repair PAF Obesity Ch Venous Stasis of lower exteremities Plan: Continue Anti coag resume Diuretics Dc IVF monitor Lyes continue Rehab.
--- NOTE | 2016-12-15 23:52 | CP.PCM.PN ---
Subjective - Date & Time of Evaluation Date of Evaluation: 12/15/16 Time of Evaluation: 14:45 - Subjective Subjective: Subjective: Seen in TRCU VS stable Labs reviewed Meds reviewed 1) Acute on chronic renal failure Assessment & Plan: Resolving ANDREA, push PO fluids No more IVF Status: Acute (2) Cardiomyopathy Assessment & Plan: Compensated Status: Acute (3) Pulmonary hypertension Assessment & Plan: Stable Status: Acute (4) Physical deconditioning Assessment & Plan: Con't PT Status: Acute (5) Gout: knee was tapped, but fluid results are not available changed prednisone to 5mg daily started colchicine 0.3mg daily uloric 40mg daily as outpatient Objective - Vital Signs/Intake and Output Vital Signs (last 24 hours): Temp Pulse Resp BP Pulse Ox 98.2 F 42 L 18 130/90 98 12/15/16 10:00 12/15/16 10:07 12/15/16 10:00 12/15/16 10:12 12/15/16 10:00 - Labs Labs: 12/15/16 07:00 12/15/16 07:35 Assessment and Plan (1) Acute on chronic renal failure Status: Acute (2) Cardiomyopathy Status: Acute (3) Pulmonary hypertension Status: Acute (4) Physical deconditioning Status: Acute
== END 2016-12-15 13:41 | disposition home or self-care (01) | DRG 945 ==
LOC: TRCU 17:30
PROVIDERS: ADMIT Internal Medicine; ATTEND Internal Medicine
PROC: F07Z9FZ Gait Training/Functional Ambulation Treatment using Assistive, Adaptive, Supportive or Protective Equipment (ICD-10-PCS; principal; 2016-12-11)
PROC: F08Z4FZ Home Management Treatment using Assistive, Adaptive, Supportive or Protective Equipment (ICD-10-PCS; 2016-12-11)
PROC: 5A09357 Assistance with Respiratory Ventilation, Less than 24 Consecutive Hours, Continuous Positive Airway Pressure (ICD-10-PCS; 2016-12-14)
DX: R53.1 Weakness (principal); N17.9 Acute kidney failure, unspecified; N18.3 Chronic kidney disease, stage 3 (moderate); L02.213 Cutaneous abscess of chest wall; I50.9 Heart failure, unspecified; I13.0 Hypertensive heart and chronic kidney disease with heart failure and stage 1 through stage 4 chronic kidney disease, or unspecified chronic kidney disease; E11.22 Type 2 diabetes mellitus with diabetic chronic kidney disease; I42.9 Cardiomyopathy, unspecified; I27.2 Other secondary pulmonary hypertension; M10.9 Gout, unspecified; J44.9 Chronic obstructive pulmonary disease, unspecified; G47.33 Obstructive sleep apnea (adult) (pediatric); I48.0 Paroxysmal atrial fibrillation; I25.10 Atherosclerotic heart disease of native coronary artery without angina pectoris; M17.12 Unilateral primary osteoarthritis, left knee; I87.2 Venous insufficiency (chronic) (peripheral); K21.9 Gastro-esophageal reflux disease without esophagitis; Z95.2 Presence of prosthetic heart valve